=== PATIENT | female | born 1965 | race Caucasian/White ===

== ENCOUNTER 2017-12-23 13:06 | Emergency (ER) | payer MEDICARE, SELFPAY | END 2017-12-23 14:02 | disposition home or self-care (01) | PROVIDERS: Emergency Provider Internal Medicine; PCP Family Medicine; Visit Provider Internal Medicine | DX: J01.90 Acute sinusitis, unspecified (principal); B97.89 Other viral agents as the cause of diseases classified elsewhere | CPT/HCPCS: 99282 ==

== ENCOUNTER 2018-10-24 11:16 | Emergency (ER) | payer MEDICARE, SELFPAY ==
[2018-10-24 11:22] VITALS: BP 142/91; PULSE 69; RESP 15; TEMP 36.9; O2SAT 97; BMI 42.0
--- NOTE | 2018-10-24 12:41 | PC.NURSE ---
Pt is sitting on bed with daughter. Pt requested food, which was provided. Pt is also concerned her PCP will find out about this ER visit.
--- NOTE | 2018-10-24 12:54 | PC.NURSE ---
Pt requested to use the bathroom, and voided without incident.
[2018-10-24 13:18] LABS: Add Manual Diff / Slide Review NO; Basophils Absolute Auto 100 /uL (0-100); Basophils Percent Auto 1.2 % (0-2); Eosinophils Absolute Auto 200 /uL (0-450); Eosinophils Percent Auto 3.1 % (2-4); Hematocrit 37.7 % (36-46); Hemoglobin 12.6 g/dL (12.0-16.0); Lymphocytes Absolute Auto 1700 /uL (1100-4500); Lymphocytes Percent Auto 22.5 % (25-40); Mean Corpuscular HGB Conc 33.5 % (30-36); Mean Corpuscular Hemoglobin 28.8 PG (26-34); Mean Corpuscular Volume 86.1 fL (80-100); Monocytes Absolute Auto 400 /uL (0-900); Monocytes Percent Auto 4.9 % (3-14); Neutrophils Absolute Auto 5200 /uL (1500-7000); Neutrophils Percent Auto 68.3 % (50-75); Platelet Count 402 X10^3/uL (150-400); Red Blood Cell Count 4.38 X10^6/uL (4.0-5.2); Red Cell Distribution Width 13.7 % (11.6-14.8); White Blood Cell Count 7.6 X10^3/uL (4.5-11.0)
[2018-10-24 13:33] LABS: Alanine Aminotransferase 22 IU/L (9-52); Albumin 3.8 g/dL (3.5-5.0); Albumin Globulin Ratio 1.2 (1.0-2.8); Alkaline Phosphatase 71 U/L (38-126); Aspartate Aminotransferase 21 IU/L (14-36); BUN Creatinine Ratio 15.6 (6-22); Bilirubin Total 0.3 mg/dL (0.2-1.3); Blood Urea Nitrogen 14 mg/dL (7-17); Calcium 9.1 mg/dL (8.4-10.2); Carbon Dioxide 27 mmol/L (22-32); Chloride 105 mmol/L (98-107); Estimated Glomerular Filt Rate > 60.0 mL/min (>60); Ethanol (ETOH) < 10 mg/dL; Globulin 3.1 g/dL (1.7-4.1); Glucose 92 mg/dL (70-100); HEMOLYSIS < 15 (0-50); Potassium 3.6 mmol/L (3.4-5.1); Sodium 141 mmol/L (137-145); Total Protein 6.9 g/dL (6.3-8.2)
[2018-10-24 13:34] LABS: Bacteria Urine None Seen
--- NOTE | 2018-10-24 13:37 | ED.PSYCH ---
HPI - Psych General Chief Complaint: Psychiatric Symptoms Stated Complaint: 'kind of personal they told David' Time Seen by Provider: 10/24/18 12:10 Source: patient Mode of arrival: ambulatory Limitations: no limitations History of Present Illness HPI Narrative: patient is a 53-year-old female presents from her primary care provider for suicidal ideations. The patient is a chronic pain patient she has fibromyalgia PTSD bipolar. She has been having worsening pain in her hips and back. 3 days ago she wanted to cut her wrist but did not her and son stopped her. Last evening she also got some of her friends cocaine with attempt to hurt herself and end her life. She did not take very much of it. He was seen by her primary care doctor today for are her chronic pain concern for suicidal ideations sent to the ER for further evaluation. The patient would just like her pain controlled. Her pain seems to be out of control causing her these thoughts. she does not feel like there is anything being done except pain is. She previously has had injections in her back she has been seen by pain management which she says she and the physician did not get along so she stopped going. She has not taken any excess of her own pain medications. She has never attempted suicide in the past. No history of prior hospitalizations.. Related Data Home Medications Medication Instructions Recorded Confirmed Disabled Parking Permit 1 ea MISCELLANEOUS DIRECTED 10/24/18 10/24/18 duloxetine [Cymbalta] 30 mg PO DAILY 10/24/18 10/24/18 duloxetine [Cymbalta] 60 mg PO DAILY 10/24/18 10/24/18 gabapentin [Neurontin] 900 mg PO TID 10/24/18 10/24/18 lamotrigine [Lamictal] 200 mg PO BEDTIME 10/24/18 10/24/18 lidocaine [Lidoderm] 1 patch TOPICAL Q12H PRN 10/24/18 meloxicam 7.5 mg PO DAILY 10/24/18 10/24/18 prazosin 4 mg PO BEDTIME 10/24/18 10/24/18 promethazine 25 mg/mL injection 25 mg IM ONCE 10/24/18 10/24/18 solution Previous Rx's Medication Instructions Recorded omeprazole 20 mg PO BID #60 cap 10/28/17 cetirizine 10 mg PO QDAY #30 tab 11/27/17 fluticasone 1 spray INTRANASAL SEE 11/27/17 INSTRUCTIONS #16 gm clonazepam 1 mg tablet 1 mg PO TID #90 tab 09/30/18 oxycodone-acetaminophen 5 mg-325 1 tab PO TID PRN #90 tab 09/30/18 mg tablet carisoprodol 350 mg tablet 350 mg PO TIDP PRN #90 tab 10/16/18 cefpodoxime 200 mg tablet 200 mg PO BID #20 tab 10/24/18 oxycodone ER 10 mg tablet,crush 10 mg PO Q12H #60 tab 10/24/18 resistant,extended release 12 hr Allergies Allergy/AdvReac Type Severity Reaction Status Date / Time Penicillins Allergy Severe THROAT Verified 10/24/18 09:28 SWELLING pain contract Allergy Unknown Uncoded 10/24/18 09:28 Review of Systems Review of Systems ROS Unobtainable: All systems reviewed & are unremarkable except as noted in HPI and below ENT Ears, Nose, Mouth, and Throat: Denies change in voice, Denies vertigo, Denies dizziness, Denies neck pain and Denies sore throat Cardiovascular Denies syncope, Denies dyspnea and Denies dyspnea on exertion Respiratory Reports cough, Denies dyspnea, Denies dyspnea on exertion and Denies wheezing Gastrointestinal Gastrointestinal: Denies abdominal pain, Denies change in bowel habits, Denies diarrhea, Denies nausea and Denies vomiting Genitourinary Denies hematuria, Denies flank pain, Denies urinary incontinence and Denies urinary urgency Musculoskeletal Reports as per HPI, Reports back pain, Denies neck pain, Reports radiating pain into limb and Reports tingling Integumentary/Breasts Denies pruritus, Denies erythema, Denies rash and Denies wounds Neurologic Denies vertigo, Denies dizziness, Denies syncope and Reports tingling Psychiatric Reports as per HPI and Reports suicidal ideation Allergic/Immunologic Denies wheezing PFSH Surgical History History of colonoscopy (Resolved 07/2013) History of cystoscopy (Resolved 07/2013) History of endometrial ablation (Resolved 10/2012) History of esophagogastroduodenoscopy (EGD) (Resolved 03/2013) History of esophagogastroduodenoscopy (EGD) (Resolved 10/26/13) History of lumbar surgery (Resolved ) Social History Smoking Status: Current some day smoker Social History Smoking Status: Current some day smoker Exam Initial Vital Signs Initial Vital Signs: Vital Signs Temperature 98.4 F 10/24/18 11:22 Pulse Rate 69 10/24/18 11:22 Respiratory Rate 15 10/24/18 11:22 Blood Pressure 142/91 H 10/24/18 11:22 Pulse Oximetry 97 10/24/18 11:22 GENERAL: overweight female tearful alert oriented x4 HEENT: Head atraumatic,EOMI, neck is supple CARDIOVASCULAR: Regular rate and rhythm without murmurs, rubs or gallops. RESPIRATORY: Breath sounds equal bilaterally, no wheezes rales or rhonchi. ABDOMEN: Soft, nontender. Normoactive bowel sounds all 4 quadrants. No guarding or rebound. BACK: lumbar extremely sensitive to light touch scar noted no vertebral step-offs EXTREMITIES: Normal range of motion, no clubbing or edema. Neurovascularly intact. strength equal deep tendon reflexes intact NEUROLOGICAL: Alert and oriented x4.Normal gait and speech. Cranial nerves II through XII grossly intact. Strength equal in extremities SKIN: Warm, dry, no laceration, no petechiae, no rashes or lesions. Psych Appearance: grossly normal Mental Status: mental status grossly normal Speech and Movement: speech and movement normal Mood: congruent mood Affect: normal affect Attitude: cooperative Thought Process: normal Thought Content: normal Judgment: judgment good Course Orders Ordered: ED Orders 10/24/18 13:10 Complete Blood Count AUTO DIFF Stat Comprehensive Metabolic Panel Stat Ethanol (ETOH) Stat Thyroid Stimulating Hormone Stat 10/24/18 13:33 Urine Drug Screen, Rapid Stat Urine Microscopic Stat 10/24/18 13:50 CT lumbar spine wo con Stat XR chest 1V Stat Discontinued Medications Diazepam (Valium) 10 mg PO NOW ONE Stop: 10/24/18 14:02 Last Admin: 10/24/18 14:28 Dose: 10 mg Vital Signs - 8 hr 10/24/18 15:15 Temperature 97.9 F Pulse Rate 72 Respiratory Rate 18 Blood Pressure [Right Arm] 108/67 Pulse Oximetry 94 MDM - Psych Lab Data Attestation: I reviewed the patient's lab results. Result diagrams: 10/24/18 13:10 10/24/18 13:10 Lab Results 10/24/18 10/24/18 10/24/18 Range/Units 13:10 13:10 13:10 WBC 7.6 (4.5-11.0) X10^3/uL RBC 4.38 (4.0-5.2) X10^6/uL Hgb 12.6 (12.0-16.0) g/dL Hct 37.7 (36-46) % MCV 86.1 (80-100) fL MCH 28.8 (26-34) PG MCHC 33.5 (30-36) % RDW 13.7 (11.6-14.8) % Plt Count 402 H (150-400) X10^3/uL Neut % (Auto) 68.3 (50-75) % Lymph % (Auto) 22.5 L (25-40) % Crisp % (Auto) 4.9 (3-14) % Eos % (Auto) 3.1 (2-4) % Baso % (Auto) 1.2 (0-2) % Neut # (Auto) 5200 (8477-8335) /uL Lymph # (Auto) 1700 (1386-6367) /uL Crisp # (Auto) 400 (0-900) /uL Eos # (Auto) 200 (0-450) /uL Baso # (Auto) 100 (0-100) /uL Sodium 141 (137-145) mmol/L Potassium 3.6 (3.4-5.1) mmol/L Chloride 105 (98-107) mmol/L Carbon Dioxide 27 (22-32) mmol/L BUN 14 (7-17) mg/dL Creatinine 0.90 (0.52-1.04) mg/dL Estimated GFR > 60.0 (>60) mL/min BUN/Creatinine Ratio 15.6 (6-22) Glucose 92 (70-100) mg/dL Calcium 9.1 (8.4-10.2) mg/dL Total Bilirubin 0.3 (0.2-1.3) mg/dL AST 21 (14-36) IU/L ALT 22 (9-52) IU/L Alkaline Phosphatase 71 (38-126) U/L Total Protein 6.9 (6.3-8.2) g/dL Albumin 3.8 (3.5-5.0) g/dL Globulin 3.1 (1.7-4.1) g/dL Albumin/Globulin Ratio 1.2 (1.0-2.8) TSH 1.44 (0.47-4.68) uIU/mL Urine RBC (0-5/HPF) Urine WBC (0-5/HPF) Ur Squamous Epith Cells Urine Bacteria (None) Ur Culture Indicated? Urine Opiates Screen (Negative) Ur Oxycodone Screen (Negative) Urine Methadone Screen (Negative) Ur Barbiturates Screen (Negative) U Tricyclic Antidepress (Negative) Ur Phencyclidine Scrn (Negative) Ur Amphetamines Screen (Negative) U Methamphetamines Scrn (Negative) Ur MDMA Scrn (Ecstasy) (Negative) U Benzodiazepines Scrn (Negative) Urine Cocaine Screen (Negative) U Marijuana (THC) Screen (Negative) Ethyl Alcohol < 10 mg/dL 10/24/18 10/24/18 Range/Units 13:33 13:33 WBC (4.5-11.0) X10^3/uL RBC (4.0-5.2) X10^6/uL Hgb (12.0-16.0) g/dL Hct (36-46) % MCV (80-100) fL MCH (26-34) PG MCHC (30-36) % RDW (11.6-14.8) % Plt Count (150-400) X10^3/uL Neut % (Auto) (50-75) % Lymph % (Auto) (25-40) % Crisp % (Auto) (3-14) % Eos % (Auto) (2-4) % Baso % (Auto) (0-2) % Neut # (Auto) (5376-8682) /uL Lymph # (Auto) (7790-3055) /uL Crisp # (Auto) (0-900) /uL Eos # (Auto) (0-450) /uL Baso # (Auto) (0-100) /uL Sodium (137-145) mmol/L Potassium (3.4-5.1) mmol/L Chloride (98-107) mmol/L Carbon Dioxide (22-32) mmol/L BUN (7-17) mg/dL Creatinine (0.52-1.04) mg/dL Estimated GFR (>60) mL/min BUN/Creatinine Ratio (6-22) Glucose (70-100) mg/dL Calcium (8.4-10.2) mg/dL Total Bilirubin (0.2-1.3) mg/dL AST (14-36) IU/L ALT (9-52) IU/L Alkaline Phosphatase (38-126) U/L Total Protein (6.3-8.2) g/dL Albumin (3.5-5.0) g/dL Globulin (1.7-4.1) g/dL Albumin/Globulin Ratio (1.0-2.8) TSH (0.47-4.68) uIU/mL Urine RBC 5-10/hpf H (0-5/HPF) Urine WBC 5-10/hpf H (0-5/HPF) Ur Squamous Epith Cells 5-10 /hpf H Urine Bacteria None seen (None) Ur Culture Indicated? Cult not indicated Urine Opiates Screen Negative (Negative) Ur Oxycodone Screen Negative (Negative) Urine Methadone Screen Negative (Negative) Ur Barbiturates Screen Negative (Negative) U Tricyclic Antidepress Negative (Negative) Ur Phencyclidine Scrn Negative (Negative) Ur Amphetamines Screen Negative (Negative) U Methamphetamines Scrn Negative (Negative) Ur MDMA Scrn (Ecstasy) Negative (Negative) U Benzodiazepines Scrn Negative (Negative) Urine Cocaine Screen Positive H (Negative) U Marijuana (THC) Screen Positive H (Negative) Ethyl Alcohol mg/dL Urine Dip Bedside Urine Glucose Negative Bedside Urine Bilirubin + 1 Bedside Urine Ketone - Negative Urine Specific [place] 1.015 Bedside Urine Occult Blood +/- Bedside Urine pH 7.5 Bedside Urine Protein +/- 15 Bedside Urine Urobilinogen - Negative Bedside Urine Leukocytes +++ 500 Esterase Imaging Data lumbar CT: Radiologist's impression: PROCEDURE: CT LUMBAR SPINE WO CON INDICATIONS: worsening back pain TECHNIQUE: Noncontrast 3 mm thick sections acquired from the T12 level to the sacrum. Sagittal and coronal reformats were constructed. For radiation dose reduction, the following was used: automated exposure control. COMPARISON: [facility], CT, KIDNEY/ URETER/BLADDER, 06/19/2016, 21:58. [facility], MR, L-SPINE W&WO CONTRAST, 03/02/2013, 11:47. [facility], CR, L-SPINE 2-3 VIEWS, 08/10/2016, 1:42. [facility] [place], CR, SPINE LUMB 2 OR 3VW, 10/07/2014, 10:56. FINDINGS: Image quality: Excellent. Bones: There is normal bony alignment. No acute vertebral body compression fractures. No suspicious lytic or blastic bony lesions. Central spinal caliber is of normal overall caliber. No pars defects. T12-L1: Normal appearance. L1-L2: Normal appearance. L2-L3: Normal appearance. L3-L4: Normal appearance. L4-L5: Disc height is normal. Mild, diffuse disc bulge. Moderate to severe narrowing of the central canal. The right L4-L5 facet is diminutive in size which could be due to prior partial surgical resection versus congenital hypoplasia stable in appearance compared to prior exams. Moderate bilateral facet hypertrophy. Mild bilateral neural foraminal narrowing. L5-S1: Disc height is normal. Vacuum disc phenomenon. Mild, diffuse disc bulge. Mild bilateral facet hypertrophy. Mild narrowing of the central canal. Mild bilateral neural foraminal narrowing. Soft tissues: 2 cm low-density left adrenal adenoma. Small hiatal hernia. No retroperitoneal masses or hematomas. 1-2 mm nonobstructing stone in the inferior pole of the left kidney. Visualized aorta is normal in caliber. IMPRESSION: 1. No fracture. No acute osseous lesion. If symptoms and/or clinical suspicion for pathology persists, evaluation with MRI may be helpful for further assessment. 2. L4-L5 and L5-S1 degenerative disease 3. L4-L5 and L5-S1 facet arthropathy. 4. Moderate to severe L4-L5 central canal narrowing. Mild L5-S1 central canal narrowing. 5. Mild bilateral L4-L5 and L5-S1 neural foraminal narrowing. Dictated by: Kim Carpenter MD, PhD on 10/24/2018 at 14:52 Chest x-ray: Radiologist's impression: PROCEDURE: XR CHEST 1V INDICATIONS: Cough. TECHNIQUE: One view of the chest was acquired. COMPARISON: [facility], CHEST 2 VIEW, 01/18/2016, 9:22. [facility], CHEST 2VIEW PLUS LORDOTIC, 06/18/2012, 9:44. [facility], CHEST 2 VIEW, 11/13/2007, 21:01. FINDINGS: Surgical changes and devices: None. Lungs and pleura: There are increased bilateral predominantly perihilar reticular pulmonary opacities. There are hazy bibasilar and linear pulmonary opacities. No pleural effusions or pneumothorax. Lungs are hypoinflated. Mediastinum: Mediastinal contours appear normal. There is enlargement of the cardiac silhouette, with a component likely due to pulmonary hypoinflation. Bones and chest wall: No suspicious bony lesions. Overlying soft tissues appear unremarkable. IMPRESSION: 1. Enlargement of the cardiac silhouette, which can be seen with cardiomegaly or a pericardial effusion. 2. Increased bilateral perihilar reticular opacities suggestive of mild fluid overload/pulmonary edema. 3. Mild bibasilar pulmonary opacities most consistent with atelectasis, with pneumonia thought less likely. Dictated by: Yaw Quinn M.D. on 10/24/2018 at 14:45 MDM Narrative Medical decision making narrative: the patient is not actively suicidal. She has good insight she has a good support team at home. Seems that the root of her problem is acute on chronic pain. She is not currently going to chronic pain management she has not recently had any imaging done. Her CT of lumbar spine does show some canal narrowing. Perhaps an MRI as outpatient may help her. Also I suggested Dr. Pro for back injections. She had gone to him in the past she is hopeful of seeing him again she thinks that this will help. She has done physical therapy. Dr. subhash haas has been updated on patient's symptoms test results. She agrees with helping as outpatient with MRI and joint injections along with chronic pain management. At this time patient does not meet involuntary criteria for or suicidal ideations. She is not actively suicidal with no plan. She is agreeable to reach out for help if she should feel that she is becoming suicidal. Her is here with her and seems to be a good support for her. The patient is clinically sober, free from distracting injury, appears to have intact insight, judgment and reason. Does not meet criteria for involuntary hospitalization. Patient has the capacity to make decisions. Discharge Plan Departure Patient Disposition: Home Clinical Impression: Acute exacerbation of chronic low back pain Discharge Date/Time: 10/24/18 16:38 Interventions: ED Discharge Assessment Last Done: 10/24/18 16:38 Instructions: Low Back Pain, Acupuncture for Low Back Pain Activity Restrictions/Additional Instructions: *You have been diagnosed with acute on chronic pain *What to do: recommend outpatient MRI I have discussed this with . I have also discussed injections with Dr. Mcadams. She will also help to set this up If you are feeling suicidal or having suicidal thoughts: Call: Suicide Hotline: Visit: www.iamhurting.org Text: 092983 *Continue to take medications as directed Dr. Redd sent indications over to [facility] *Follow up with your primary care provider in 2-3 days *Return to ER if you should have increasing lower extremity weakness, suicidal thoughts or thoughts of self-harm or any new, worsening or concerning symptoms Prescriptions: No Action omeprazole 20 MG capsule,delayed release(DR/EC) 20 mg PO BID Qty: 60 RF: 1 fluticasone 16 GM spray,suspension 1 spray Intranasal SEE INSTRUCTIONS Qty: 16 RF: 6 cetirizine 10 MG tablet 10 mg PO QDAY Qty: 30 RF: 1 clonazepam 1 mg tablet 1 mg PO TID Qty: 90 RF: 0 oxycodone-acetaminophen [Percocet] 5-325 mg tablet 1 tab PO TID PRN (Reason: pain) Qty: 90 RF: 0 carisoprodol 350 mg tablet 350 mg PO TIDP PRN (Reason: pain MUST LAST 30 DAYS) Qty: 90 RF: 0 ketorolac 15 mg/mL solution 30 mg IM ONCE Qty: 2 RF: 0 ceftriaxone 1 gram recon soln 1 gram IM ONCE Qty: 1 RF: 0 diphenhydramine HCl 50 mg/mL solution 50 mg IM ONCE Qty: 1 RF: 0 cefpodoxime 200 mg tablet 200 mg PO BID Qty: 20 RF: 0 oxycodone [OxyContin] 10 mg tablet,oral only,ext.rel.12 hr 10 mg PO Q12H Qty: 60 RF: 0 promethazine 25 mg/mL solution 25 mg IM ONCE RF: 0 meloxicam 7.5 mg tablet 7.5 mg PO DAILY RF: 0 gabapentin [Neurontin] 600 mg tablet 900 mg PO TID RF: 0 lamotrigine [Lamictal] 100 mg tablet 200 mg PO BEDTIME RF: 0 duloxetine [Cymbalta] 30 mg capsule,delayed release(DR/EC) 30 mg PO DAILY RF: 0 duloxetine [Cymbalta] 60 mg capsule,delayed release(DR/EC) 60 mg PO DAILY RF: 0 prazosin 2 mg Capsule 4 mg PO BEDTIME RF: 0 Disabled Parking Permit 1 ea miscellaneous DIRECTED RF: 0 lidocaine [Lidoderm] 1 EACH adhesive patch,medicated 1 patch Topical Q12H PRN (Reason: pain) RF: 0 Referrals: Sheldon Mcadams DO [Physician] - Manuela Redd DO [Primary Care Provider] -
--- NOTE | 2018-10-24 13:42 | ED_ITS ---
HPI - Psych General Chief Complaint: Psychiatric Symptoms Stated Complaint: 'kind of personal they told David' Time Seen by Provider: 10/24/18 12:10 Source: patient Mode of arrival: ambulatory Limitations: no limitations History of Present Illness HPI Narrative: patient is a 53-year-old female presents from her primary care provider for suicidal ideations. The patient is a chronic pain patient she has fibromyalgia PTSD bipolar. She has been having worsening pain in her hips and back. 3 days ago she wanted to cut her wrist but did not her and son stopped her. Last evening she also got some of her friends cocaine with attempt to hurt herself and end her life. She did not take very much of it. He was seen by her primary care doctor today for are her chronic pain concern for suicidal ideations sent to the ER for further evaluation. The patient would just like her pain controlled. Her pain seems to be out of control causing her these thoughts. she does not feel like there is anything being done except pain is. She previously has had injections in her back she has been seen by brittny cruz which she says she and the physician did not get along so she stopped going. She has not taken any excess of her own pain medications. She has never attempted suicide in the past. No history of prior hospitalizations.. Related Data Home Medications Medication Instructions Recorded Confirmed Disabled Parking Permit 1 ea MISCELLANEOUS DIRECTED 10/24/18 10/24/18 duloxetine [Cymbalta] 30 mg PO DAILY 10/24/18 10/24/18 duloxetine [Cymbalta] 60 mg PO DAILY 10/24/18 10/24/18 gabapentin [Neurontin] 900 mg PO TID 10/24/18 10/24/18 lamotrigine [Lamictal] 200 mg PO BEDTIME 10/24/18 10/24/18 lidocaine [Lidoderm] 1 patch TOPICAL Q12H PRN 10/24/18 meloxicam 7.5 mg PO DAILY 10/24/18 10/24/18 prazosin 4 mg PO BEDTIME 10/24/18 10/24/18 promethazine 25 mg/mL injection 25 mg IM ONCE 10/24/18 10/24/18 solution Previous Rx's Medication Instructions Recorded omeprazole 20 mg PO BID #60 cap 10/28/17 cetirizine 10 mg PO QDAY #30 tab 11/27/17 fluticasone 1 spray INTRANASAL SEE 11/27/17 INSTRUCTIONS #16 gm clonazepam 1 mg tablet 1 mg PO TID #90 tab 09/30/18 oxycodone-acetaminophen 5 mg-325 1 tab PO TID PRN #90 tab 09/30/18 mg tablet carisoprodol 350 mg tablet 350 mg PO TIDP PRN #90 tab 10/16/18 cefpodoxime 200 mg tablet 200 mg PO BID #20 tab 10/24/18 oxycodone ER 10 mg tablet,crush 10 mg PO Q12H #60 tab 10/24/18 resistant,extended release 12 hr Allergies Allergy/AdvReac Type Severity Reaction Status Date / Time Penicillins Allergy Severe THROAT Verified 10/24/18 09:28 SWELLING pain contract Allergy Unknown Uncoded 10/24/18 09:28 Review of Systems Review of Systems ROS Unobtainable: All systems reviewed & are unremarkable except as noted in HPI and below ENT Ears, Nose, Mouth, and Throat: Denies change in voice, Denies vertigo, Denies dizziness, Denies neck pain and Denies sore throat Cardiovascular Denies syncope, Denies dyspnea and Denies dyspnea on exertion Respiratory Reports cough, Denies dyspnea, Denies dyspnea on exertion and Denies wheezing Gastrointestinal Gastrointestinal: Denies abdominal pain, Denies change in bowel habits, Denies diarrhea, Denies nausea and Denies vomiting Genitourinary Denies hematuria, Denies flank pain, Denies urinary incontinence and Denies urinary urgency Musculoskeletal Reports as per HPI, Reports back pain, Denies neck pain, Reports radiating pain into limb and Reports tingling Integumentary/Breasts Denies pruritus, Denies erythema, Denies rash and Denies wounds Neurologic Denies vertigo, Denies dizziness, Denies syncope and Reports tingling Psychiatric Reports as per HPI and Reports suicidal ideation Allergic/Immunologic Denies wheezing PFSH Surgical History History of colonoscopy (Resolved 07/2013) History of cystoscopy (Resolved 07/2013) History of endometrial ablation (Resolved 10/2012) History of esophagogastroduodenoscopy (EGD) (Resolved 03/2013) History of esophagogastroduodenoscopy (EGD) (Resolved 10/26/13) History of lumbar surgery (Resolved ) Social History Smoking Status: Current some day smoker Social History Smoking Status: Current some day smoker Exam Initial Vital Signs Initial Vital Signs: Vital Signs Temperature 98.4 F 10/24/18 11:22 Pulse Rate 69 10/24/18 11:22 Respiratory Rate 15 10/24/18 11:22 Blood Pressure 142/91 H 10/24/18 11:22 Pulse Oximetry 97 10/24/18 11:22 GENERAL: overweight female tearful alert oriented x4 HEENT: Head atraumatic,EOMI, neck is supple CARDIOVASCULAR: Regular rate and rhythm without murmurs, rubs or gallops. RESPIRATORY: Breath sounds equal bilaterally, no wheezes rales or rhonchi. ABDOMEN: Soft, nontender. Normoactive bowel sounds all 4 quadrants. No guarding or rebound. BACK: lumbar extremely sensitive to light touch scar noted no vertebral step- offs EXTREMITIES: Normal range of motion, no clubbing or edema. Neurovascularly intact. strength equal deep tendon reflexes intact NEUROLOGICAL: Alert and oriented x4.Normal gait and speech. Cranial nerves II through XII grossly intact. Strength equal in extremities SKIN: Warm, dry, no laceration, no petechiae, no rashes or lesions. Psych Appearance: grossly normal Mental Status: mental status grossly normal Speech and Movement: speech and movement normal Mood: congruent mood Affect: normal affect Attitude: cooperative Thought Process: normal Thought Content: normal Judgment: judgment good Course Orders Ordered: ED Orders 10/24/18 13:10 Complete Blood Count AUTO DIFF Stat Comprehensive Metabolic Panel Stat Ethanol (ETOH) Stat Thyroid Stimulating Hormone Stat 10/24/18 13:33 Urine Drug Screen, Rapid Stat Urine Microscopic Stat 10/24/18 13:50 CT lumbar spine wo con Stat XR chest 1V Stat Discontinued Medications Diazepam (Valium) 10 mg PO NOW ONE Stop: 10/24/18 14:02 Last Admin: 10/24/18 14:28 Dose: 10 mg Vital Signs - 8 hr 10/24/18 15:15 Temperature 97.9 F Pulse Rate 72 Respiratory Rate 18 Blood Pressure [Right Arm] 108/67 Pulse Oximetry 94 MDM - Psych Lab Data Attestation: I reviewed the patient's lab results. Result diagrams: 10/24/18 13:10 10/24/18 13:10 Lab Results 10/24/18 10/24/18 10/24/18 Range/Units 13:10 13:10 13:10 WBC 7.6 (4.5-11.0) X10^3/uL RBC 4.38 (4.0-5.2) X10^6/uL Hgb 12.6 (12.0-16.0) g/dL Hct 37.7 (36-46) % MCV 86.1 (80-100) fL MCH 28.8 (26-34) PG MCHC 33.5 (30-36) % RDW 13.7 (11.6-14.8) % Plt Count 402 H (150-400) X10^3/uL Neut % (Auto) 68.3 (50-75) % Lymph % (Auto) 22.5 L (25-40) % [place] % (Auto) 4.9 (3-14) % Eos % (Auto) 3.1 (2-4) % Baso % (Auto) 1.2 (0-2) % Neut # (Auto) 5200 (5700-8651) /uL Lymph # (Auto) 1700 (9637-4084) /uL [place] # (Auto) 400 (0-900) /uL Eos # (Auto) 200 (0-450) /uL Baso # (Auto) 100 (0-100) /uL Sodium 141 (137-145) mmol/L Potassium 3.6 (3.4-5.1) mmol/L Chloride 105 (98-107) mmol/L Carbon Dioxide 27 (22-32) mmol/L BUN 14 (7-17) mg/dL Creatinine 0.90 (0.52-1.04) mg/dL Estimated GFR > 60.0 (>60) mL/min BUN/Creatinine Ratio 15.6 (6-22) Glucose 92 (70-100) mg/dL Calcium 9.1 (8.4-10.2) mg/dL Total Bilirubin 0.3 (0.2-1.3) mg/dL AST 21 (14-36) IU/L ALT 22 (9-52) IU/L Alkaline Phosphatase 71 (38-126) U/L Total Protein 6.9 (6.3-8.2) g/dL Albumin 3.8 (3.5-5.0) g/dL Globulin 3.1 (1.7-4.1) g/dL Albumin/Globulin Ratio 1.2 (1.0-2.8) TSH 1.44 (0.47-4.68) uIU/mL Urine RBC (0-5/HPF) Urine WBC (0-5/HPF) Ur Squamous Epith Cells Urine Bacteria (None) Ur Culture Indicated? Urine Opiates Screen (Negative) Ur Oxycodone Screen (Negative) Urine Methadone Screen (Negative) Ur Barbiturates Screen (Negative) U Tricyclic Antidepress (Negative) Ur Phencyclidine Scrn (Negative) Ur Amphetamines Screen (Negative) U Methamphetamines Scrn (Negative) Ur MDMA Scrn (Ecstasy) (Negative) U Benzodiazepines Scrn (Negative) Urine Cocaine Screen (Negative) U Marijuana (THC) Screen (Negative) Ethyl Alcohol < 10 mg/dL 10/24/18 10/24/18 Range/Units 13:33 13:33 WBC (4.5-11.0) X10^3/uL RBC (4.0-5.2) X10^6/uL Hgb (12.0-16.0) g/dL Hct (36-46) % MCV (80-100) fL MCH (26-34) PG MCHC (30-36) % RDW (11.6-14.8) % Plt Count (150-400) X10^3/uL Neut % (Auto) (50-75) % Lymph % (Auto) (25-40) % [place] % (Auto) (3-14) % Eos % (Auto) (2-4) % Baso % (Auto) (0-2) % Neut # (Auto) (0856-6048) /uL Lymph # (Auto) (4963-9004) /uL [place] # (Auto) (0-900) /uL Eos # (Auto) (0-450) /uL Baso # (Auto) (0-100) /uL Sodium (137-145) mmol/L Potassium (3.4-5.1) mmol/L Chloride (98-107) mmol/L Carbon Dioxide (22-32) mmol/L BUN (7-17) mg/dL Creatinine (0.52-1.04) mg/dL Estimated GFR (>60) mL/min BUN/Creatinine Ratio (6-22) Glucose (70-100) mg/dL Calcium (8.4-10.2) mg/dL Total Bilirubin (0.2-1.3) mg/dL AST (14-36) IU/L ALT (9-52) IU/L Alkaline Phosphatase (38-126) U/L Total Protein (6.3-8.2) g/dL Albumin (3.5-5.0) g/dL Globulin (1.7-4.1) g/dL Albumin/Globulin Ratio (1.0-2.8) TSH (0.47-4.68) uIU/mL Urine RBC 5-10/hpf H (0-5/HPF) Urine WBC 5-10/hpf H (0-5/HPF) Ur Squamous Epith Cells 5-10 /hpf H Urine Bacteria None seen (None) Ur Culture Indicated? Cult not indicated Urine Opiates Screen Negative (Negative) Ur Oxycodone Screen Negative (Negative) Urine Methadone Screen Negative (Negative) Ur Barbiturates Screen Negative (Negative) U Tricyclic Antidepress Negative (Negative) Ur Phencyclidine Scrn Negative (Negative) Ur Amphetamines Screen Negative (Negative) U Methamphetamines Scrn Negative (Negative) Ur MDMA Scrn (Ecstasy) Negative (Negative) U Benzodiazepines Scrn Negative (Negative) Urine Cocaine Screen Positive H (Negative) U Marijuana (THC) Screen Positive H (Negative) Ethyl Alcohol mg/dL Urine Dip Bedside Urine Glucose Negative Bedside Urine Bilirubin + 1 Bedside Urine Ketone - Negative Urine Specific [place] 1.015 Bedside Urine Occult Blood +/- Bedside Urine pH 7.5 Bedside Urine Protein +/- 15 Bedside Urine Urobilinogen - Negative Bedside Urine Leukocytes +++ 500 Esterase Imaging Data lumbar CT: Radiologist's impression: PROCEDURE: CT LUMBAR SPINE WO CON INDICATIONS: worsening back pain TECHNIQUE: Noncontrast 3 mm thick sections acquired from the T12 level to the sacrum. Sagittal and coronal reformats were constructed. For radiation dose reduction, the following was used: automated exposure control. COMPARISON: [facility], CT, KIDNEY/ URETER/BLADDER, 06/19/2016, 21:58. [facility], MR, L-SPINE W&WO CONTRAST, 03/02/2013, 11:47. [facility], CR, L- SPINE 2-3 VIEWS, 08/10/2016, 1:42. [facility] [place], CR, SPINE LUMB 2 OR 3VW, 10/07/2014, 10:56. FINDINGS: Image quality: Excellent. Bones: There is normal bony alignment. No acute vertebral body compression fractures. No suspicious lytic or blastic bony lesions. Central spinal caliber is of normal overall caliber. No pars defects. T12-L1: Normal appearance. L1-L2: Normal appearance. L2-L3: Normal appearance. L3-L4: Normal appearance. L4-L5: Disc height is normal. Mild, diffuse disc bulge. Moderate to severe narrowing of the central canal. The right L4-L5 facet is diminutive in size which could be due to prior partial surgical resection versus congenital hypoplasia stable in appearance compared to prior exams. Moderate bilateral facet hypertrophy. Mild bilateral neural foraminal narrowing. L5-S1: Disc height is normal. Vacuum disc phenomenon. Mild, diffuse disc bulge. Mild bilateral facet hypertrophy. Mild narrowing of the central canal. Mild bilateral neural foraminal narrowing. Soft tissues: 2 cm low-density left adrenal adenoma. Small hiatal hernia. No retroperitoneal masses or hematomas. 1-2 mm nonobstructing stone in the inferior pole of the left kidney. Visualized aorta is normal in caliber. IMPRESSION: 1. No fracture. No acute osseous lesion. If symptoms and/or clinical suspicion for pathology persists, evaluation with MRI may be helpful for further assessment. 2. L4-L5 and L5-S1 degenerative disease 3. L4-L5 and L5-S1 facet arthropathy. 4. Moderate to severe L4-L5 central canal narrowing. Mild L5-S1 central canal narrowing. 5. Mild bilateral L4-L5 and L5-S1 neural foraminal narrowing. Dictated by: Kim Carpenter MD, PhD on 10/24/2018 at 14:52 Chest x-ray: Radiologist's impression: PROCEDURE: XR CHEST 1V INDICATIONS: Cough. TECHNIQUE: One view of the chest was acquired. COMPARISON: [facility], CHEST 2 VIEW, 01/18/2016, 9:22. [facility], CHEST 2VIEW PLUS LORDOTIC, 06/18/2012, 9:44. [facility], CHEST 2 VIEW, 11/13/2007, 21:01. FINDINGS: Surgical changes and devices: None. Lungs and pleura: There are increased bilateral predominantly perihilar reticular pulmonary opacities. There are hazy bibasilar and linear pulmonary opacities. No pleural effusions or pneumothorax. Lungs are hypoinflated. Mediastinum: Mediastinal contours appear normal. There is enlargement of the cardiac silhouette, with a component likely due to pulmonary hypoinflation. Bones and chest wall: No suspicious bony lesions. Overlying soft tissues appear unremarkable. IMPRESSION: 1. Enlargement of the cardiac silhouette, which can be seen with cardiomegaly or a pericardial effusion. 2. Increased bilateral perihilar reticular opacities suggestive of mild fluid overload/pulmonary edema. 3. Mild bibasilar pulmonary opacities most consistent with atelectasis, with pneumonia thought less likely. Dictated by: Yaw Quinn M.D. on 10/24/2018 at 14:45 MDM Narrative Medical decision making narrative: the patient is not actively suicidal. She has good insight she has a good support team at home. Seems that the root of her problem is acute on chronic pain. She is not currently going to chronic pain management she has not recently had any imaging done. Her CT of lumbar spine does show some canal narrowing. Perhaps an MRI as outpatient may help her. Also I suggested Dr. Pro for back injections. She had gone to him in the past she is hopeful of seeing him again she thinks that this will help. She has done physical therapy. Dr. subhash haas has been updated on patient's symptoms test results. She agrees with helping as outpatient with MRI and joint injections along with chronic pain management. At this time patient does not meet involuntary criteria for or suicidal ideations. She is not actively suicidal with no plan. She is agreeable to reach out for help if she should feel that she is becoming suicidal. Her is here with her and seems to be a good support for her. The patient is clinically sober, free from distracting injury, appears to have intact insight, judgment and reason. Does not meet criteria for involuntary hospitalization. Patient has the capacity to make decisions. Discharge Plan Departure Patient Disposition: Home Clinical Impression: Acute exacerbation of chronic low back pain Discharge Date/Time: 10/24/18 16:38 Interventions: ED Discharge Assessment Last Done: 10/24/18 16:38 Instructions: Low Back Pain, Acupuncture for Low Back Pain Activity Restrictions/Additional Instructions: *You have been diagnosed with acute on chronic pain *What to do: recommend outpatient MRI I have discussed this with . I have also discussed injections with Dr. Mcadams. She will also help to set this up If you are feeling suicidal or having suicidal thoughts: Call: Suicide Hotline: Visit: [facility] Text: 979784 *Continue to take medications as directed Dr. Redd sent indications over to [facility] pharmacy *Follow up with your primary care provider in 2-3 days *Return to ER if you should have increasing lower extremity weakness, suicidal thoughts or thoughts of self-harm or any new, worsening or concerning symptoms Prescriptions: No Action omeprazole 20 MG capsule,delayed release(DR/EC) 20 mg PO BID Qty: 60 RF: 1 fluticasone 16 GM spray,suspension 1 spray Intranasal SEE INSTRUCTIONS Qty: 16 RF: 6 cetirizine 10 MG tablet 10 mg PO QDAY Qty: 30 RF: 1 clonazepam 1 mg tablet 1 mg PO TID Qty: 90 RF: 0 oxycodone-acetaminophen [Percocet] 5-325 mg tablet 1 tab PO TID PRN (Reason: pain) Qty: 90 RF: 0 carisoprodol 350 mg tablet 350 mg PO TIDP PRN (Reason: pain MUST LAST 30 DAYS) Qty: 90 RF: 0 ketorolac 15 mg/mL solution 30 mg IM ONCE Qty: 2 RF: 0 ceftriaxone 1 gram recon soln 1 gram IM ONCE Qty: 1 RF: 0 diphenhydramine HCl 50 mg/mL solution 50 mg IM ONCE Qty: 1 RF: 0 cefpodoxime 200 mg tablet 200 mg PO BID Qty: 20 RF: 0 oxycodone [OxyContin] 10 mg tablet,oral only,ext.rel.12 hr 10 mg PO Q12H Qty: 60 RF: 0 promethazine 25 mg/mL solution 25 mg IM ONCE RF: 0 meloxicam 7.5 mg tablet 7.5 mg PO DAILY RF: 0 gabapentin [Neurontin] 600 mg tablet 900 mg PO TID RF: 0 lamotrigine [Lamictal] 100 mg tablet 200 mg PO BEDTIME RF: 0 duloxetine [Cymbalta] 30 mg capsule,delayed release(DR/EC) 30 mg PO DAILY RF: 0 duloxetine [Cymbalta] 60 mg capsule,delayed release(DR/EC) 60 mg PO DAILY RF: 0 prazosin 2 mg Capsule 4 mg PO BEDTIME RF: 0 Disabled Parking Permit 1 ea miscellaneous DIRECTED RF: 0 lidocaine [Lidoderm] 1 EACH adhesive patch,medicated 1 patch Topical Q12H PRN (Reason: pain) RF: 0 Referrals: Sheldon Mcadams DO [Physician] - Manuela Redd DO [Primary Care Provider] -
[2018-10-24 13:43] LABS: Urine Amphetamines Negative (Negative); Urine Barbiturates Negative (Negative); Urine Benzodiazepines Negative (Negative); Urine Cocaine Positive (Negative); Urine MDMA Negative (Negative); Urine Methadone Negative (Negative); Urine Methamphetamines Negative (Negative); Urine Morphine/Opi cutoff 2000 Negative (Negative); Urine Oxycodone Negative (Negative); Urine Phencyclidine Negative (Negative); Urine Tetrahydrocannabinol Positive (Negative); Urine Tricyclic Antidepressant Negative (Negative)
--- NOTE | 2018-10-24 13:50 | DI.CT.S_ITS ---
PROCEDURE: CT LUMBAR SPINE WO CON INDICATIONS: worsening back pain TECHNIQUE: Noncontrast 3 mm thick sections acquired from the T12 level to the sacrum. Sagittal and coronal reformats were constructed. For radiation dose reduction, the following was used: automated exposure control. COMPARISON: [facility], CT, KIDNEY/ URETER/BLADDER, 06/19/2016, 21:58. [facility], MR, L-SPINE W&WO CONTRAST, 03/02/2013, 11:47. [facility], CR, L-SPINE 2-3 VIEWS, 08/10/2016, 1:42. [facility] [place], CR, SPINE LUMB 2 OR 3VW, 10/07/2014, 10:56. FINDINGS: Image quality: Excellent. Bones: There is normal bony alignment. No acute vertebral body compression fractures. No suspicious lytic or blastic bony lesions. Central spinal caliber is of normal overall caliber. No pars defects. T12-L1: Normal appearance. L1-L2: Normal appearance. L2-L3: Normal appearance. L3-L4: Normal appearance. L4-L5: Disc height is normal. Mild, diffuse disc bulge. Moderate to severe narrowing of the central canal. The right L4-L5 facet is diminutive in size which could be due to prior partial surgical resection versus congenital hypoplasia stable in appearance compared to prior exams. Moderate bilateral facet hypertrophy. Mild bilateral neural foraminal narrowing. L5-S1: Disc height is normal. Vacuum disc phenomenon. Mild, diffuse disc bulge. Mild bilateral facet hypertrophy. Mild narrowing of the central canal. Mild bilateral neural foraminal narrowing. Soft tissues: 2 cm low-density left adrenal adenoma. Small hiatal hernia. No retroperitoneal masses or hematomas. 1-2 mm nonobstructing stone in the inferior pole of the left kidney. Visualized aorta is normal in caliber. IMPRESSION: 1. No fracture. No acute osseous lesion. If symptoms and/or clinical suspicion for pathology persists, evaluation with MRI may be helpful for further assessment. 2. L4-L5 and L5-S1 degenerative disease 3. L4-L5 and L5-S1 facet arthropathy. 4. Moderate to severe L4-L5 central canal narrowing. Mild L5-S1 central canal narrowing. 5. Mild bilateral L4-L5 and L5-S1 neural foraminal narrowing. Dictated by: Kim Carpenter MD, PhD on 10/24/2018 at 14:52 Approved by: Kim Carpenter MD, PhD on 10/24/2018 at 15:00
--- NOTE | 2018-10-24 13:50 | DI.RAD.S_ITS ---
PROCEDURE: XR CHEST 1V INDICATIONS: Cough. TECHNIQUE: One view of the chest was acquired. COMPARISON: [facility], CHEST 2 VIEW, 01/18/2016, 9:22. [facility], CHEST 2VIEW PLUS LORDOTIC, 06/18/2012, 9:44. [facility], CHEST 2 VIEW, 11/13/2007, 21:01. FINDINGS: Surgical changes and devices: None. Lungs and pleura: There are increased bilateral predominantly perihilar reticular pulmonary opacities. There are hazy bibasilar and linear pulmonary opacities. No pleural effusions or pneumothorax. Lungs are hypoinflated. Mediastinum: Mediastinal contours appear normal. There is enlargement of the cardiac silhouette, with a component likely due to pulmonary hypoinflation. Bones and chest wall: No suspicious bony lesions. Overlying soft tissues appear unremarkable. IMPRESSION: 1. Enlargement of the cardiac silhouette, which can be seen with cardiomegaly or a pericardial effusion. 2. Increased bilateral perihilar reticular opacities suggestive of mild fluid overload/pulmonary edema. 3. Mild bibasilar pulmonary opacities most consistent with atelectasis, with pneumonia thought less likely. Dictated by: Yaw Quinn M.D. on 10/24/2018 at 14:45 Approved by: Yaw Quinn M.D. on 10/24/2018 at 14:56
--- NOTE | 2018-10-24 14:02 | PC.NURSE ---
Pt is more calm after speaking with the doctor, and is relaxing in bed with at bedside. She requested a snack which was provided.
[2018-10-24 14:12] LABS: Culture Indicated Urine Cult Not Indicated; RBC Urine 5-10/HPF (0-5/HPF); Squamous Epithelial Cell Urine 5-10 /HPF; WBC Urine 5-10/HPF (0-5/HPF)
--- NOTE | 2018-10-24 14:13 | PC.NURSE ---
Pt taken via bed to get a CT scan.
[2018-10-24 14:17] LABS: Thyroid Stimulating Hormone 1.44 uIU/mL (0.47-4.68)
--- NOTE | 2018-10-24 14:27 | PC.NURSE ---
Pt back in room and relaxing with at bedside. Pt's family brought her food.
[2018-10-24] MEDS: diazePAM 5 MG TABLET 10 MG PO (14:28)
--- NOTE | 2018-10-24 14:44 | PC.NURSE ---
Pt went to bathroom and is back in bed resting with at bedside.
[2018-10-24 15:15] VITALS: BP 108/67; PULSE 72; RESP 18; TEMP 36.6; O2SAT 94
--- NOTE | 2018-10-24 15:29 | PC.NURSE ---
Per verbal request from Dr. Hernandez, pt no longer requiring 1:1 sitter at bedside.
--- NOTE | 2018-10-24 15:34 | PC.NURSE ---
Pt cleared by provider to release sitter. Sitter released at this time.
== END 2018-10-24 16:38 | disposition home or self-care (01) ==
PROVIDERS: Emergency Provider Emergency Medicine; Family Provider Family Medicine; PCP Family Medicine
DX: M54.5 Low back pain (principal); G89.29 Other chronic pain
CPT/HCPCS: 36415; 71045; 72131; 80053; 80305; 80320; 81003; 81015; 84443; 85025; 99283; 99284

== ENCOUNTER → 2018-12-19 12:29 | Outpatient (CLI) | payer MEDICARE, SELFPAY ==
[2018-12-19 13:13] LABS: Urine Amphetamines Negative (Negative); Urine Barbiturates Negative (Negative); Urine Benzodiazepines Negative (Negative); Urine Cocaine Negative (Negative); Urine MDMA Negative (Negative); Urine Methadone Negative (Negative); Urine Methamphetamines Negative (Negative); Urine Morphine/Opi cutoff 2000 Negative (Negative); Urine Oxycodone Positive (Negative); Urine Phencyclidine Negative (Negative); Urine Tetrahydrocannabinol Negative (Negative); Urine Tricyclic Antidepressant Negative (Negative)
== END ==
LOC: LAB 12:30
PROVIDERS: PCP Family Medicine; Visit Provider Family Medicine
DX: F11.90 Opioid use, unspecified, uncomplicated (principal)
CPT/HCPCS: 80305

== ENCOUNTER → 2019-03-06 14:56 | Outpatient (CLI) | payer MEDICARE, SELFPAY ==
--- NOTE | 2019-03-06 15:04 | DI.MRI.S_ITS ---
PROCEDURE: MR LUMBAR SPINE WO CON INDICATIONS: low back pain with radiculopathy TECHNIQUE: Noncontrast sagittal T1 spin echo and T2 fast echo, sagittal STIR, axial T1 and T2 fast spin echo through the lumbar spine. In cases with scoliosis, additional coronal T2 fast spin echo may be performed. COMPARISON: [facility], MR, L-SPINE WITHOUT CONTRAST, 08/03/2009, 17:08. MR, LUMBAR SPINE W/O CONTRAST, 08/15/2012, 15:39. [facility], MR, L-SPINE W&WO CONTRAST, 03/02/2013, 11:47. [facility], CR, L-SPINE 2-3 VIEWS, 08/10/2016, 1:42. [facility], CT, CT LUMBAR SPINE WO CON, 10/24/2018, 14:08. FINDINGS: Image quality: Excellent. Alignment and Curvature: There is normal bony alignment. Bone Marrow: Marrow is of normal overall signal. No acute vertebral body compression fractures. Spinal Cord: Conus medullaris terminates at the L1 level. Visualized cord demonstrates normal signal and size. Paraspinous Soft Tissues: No paravertebral masses. There is fatty infiltration in the right paraspinous muscle, likely secondary to denervation. L1-L2: Normal appearance. L2-L3: Normal appearance. L3-L4: Normal appearance. L4-L5: Preserved disc height. Mild disc desiccation. There is mild posterior disc bulge. Severe facet arthropathy bilaterally. Hypertrophy of ligamentum flavum. The central canal is moderately narrowed. Mild bilateral foraminal stenosis. No definitive nerve root impingement. There is increased central canal stenosis compared with last exam. L5-S1: Mild loss of disc height and disc desiccation. There is mild posterior disc bulge and posterior right paramedian disc protrusion. Moderate facet arthropathy bilaterally. Hypertrophy of ligamentum flavum. Epidural lipomatosis. The central canal is mildly narrowed. Mild bilateral foraminal stenosis. No definitive nerve root impingement. No significant change. IMPRESSION: 1. Multilevel degenerative disc disease and facet arthropathy as described, slightly progressed since the last exam. 2. Moderate central canal stenosis at L4-L5 and mild central canal stenosis at L5-S1. 3. Mild bilateral foraminal stenosis at L4 L5 and L5-S1. Dictated by: Theodora Franklin M.D. on 03/06/2019 at 18:10 Approved by: Theodora Franklin M.D. on 03/06/2019 at 18:19
== END ==
LOC: MRI 15:03
PROVIDERS: PCP Family Medicine; Visit Provider Registered Nurse
DX: M54.5 Low back pain (principal); M47.26 Other spondylosis with radiculopathy, lumbar region; M47.27 Other spondylosis with radiculopathy, lumbosacral region; M51.16 Intervertebral disc disorders with radiculopathy, lumbar region; M51.17 Intervertebral disc disorders with radiculopathy, lumbosacral region; M48.061 Spinal stenosis, lumbar region without neurogenic claudication; M48.07 Spinal stenosis, lumbosacral region
CPT/HCPCS: 72148

== ENCOUNTER → 2019-06-08 14:18 | Outpatient (ROUT) | payer MEDICARE, SELFPAY | PROVIDERS: PCP Family Medicine; Visit Provider Family Medicine | DX: M10.9 Gout, unspecified (principal) | CPT/HCPCS: 80337; 80346; 80365; 80369 ==

== ENCOUNTER → 2019-06-25 11:40 | Outpatient (CLI) | payer MEDICARE, SELFPAY | PROVIDERS: PCP Family Medicine; Visit Provider Family Medicine | DX: G56.22 Lesion of ulnar nerve, left upper limb (principal) | CPT/HCPCS: 95885; 95909 ==

== ENCOUNTER → 2019-06-25 13:33 | Outpatient (CLI) | payer MEDICARE, SELFPAY ==
--- NOTE | 2019-06-25 13:36 | DI.RAD.S_ITS ---
PROCEDURE: XR TOE RT MIN 2V INDICATIONS: joint pain TECHNIQUE: 2 views of the right toe(s) acquired. COMPARISON: None. FINDINGS: Bones: No fractures or dislocations. No suspicious bony lesions. No definite joint space narrowing Soft tissues: No suspicious soft tissue densities. IMPRESSION: Unremarkable examination. If the patient's pain or other symptoms persist, consider further evaluation with MRI Dictated by: Seb Gallo M.D. on 06/25/2019 at 16:16 Approved by: Seb Gallo M.D. on 06/25/2019 at 16:17
--- NOTE | 2019-06-25 13:36 | DI.RAD.S_ITS ---
PROCEDURE: XR HIP W PEL IF DONE LT MIN 4V INDICATIONS: anterior hip pain TECHNIQUE: AP pelvis with lateral view(s) of the right and left hip(s). COMPARISON: [facility], PELVIS W UNILATERAL HIP RIGHT, 08/08/2012, 13:17. [facility], HIP 2V LEFT, 07/20/2009, 13:54. FINDINGS: Bones: No fractures or dislocations. Pelvic ring appears intact. No suspicious bony lesions. Mild lower lumbar spondylosis. No definite hip joint space narrowing. Prominent right-sided exostosis involving the right greater trochanter, which may be enlarged since the prior study. Soft tissues: The visualized bowel gas pattern is normal. No suspicious soft tissue calcifications. IMPRESSION: Prominent right hip periarticular exostosis versus osteophyte, potentially a source of impingement in the appropriate clinical context. Cross-sectional imaging could be performed as clinically necessary. Dictated by: Seb Gallo M.D. on 06/25/2019 at 16:12 Approved by: Seb Gallo M.D. on 06/25/2019 at 16:16
== END ==
PROVIDERS: PCP Family Medicine; Visit Provider Family Medicine
DX: M25.551 Pain in right hip (principal); M25.552 Pain in left hip; M25.571 Pain in right ankle and joints of right foot; M10.9 Gout, unspecified; M19.90 Unspecified osteoarthritis, unspecified site; R20.2 Paresthesia of skin
CPT/HCPCS: 73522; 73660; 95885; 95886; 95909

== ENCOUNTER 2019-07-13 13:53 | Emergency (ER) | payer MEDICARE, SELFPAY ==
[2019-07-13 15:17] VITALS: BP 130/72; PULSE 64; RESP 18; TEMP 37; O2SAT 98; BMI 40.8
--- NOTE | 2019-07-13 15:21 | DI.RAD.S_ITS ---
PROCEDURE: XR FOOT RT MIN 3V INDICATIONS: concerns of glass in bottom of foot TECHNIQUE: 3 views of the foot were acquired. COMPARISON: [facility] [place], CR, XR FOOT 3 VIEWS WEIGHT BEARING LEFT, 06/13/2017, 13:23. [facility], CR, FOOT COMP MIN 3VW (RT), 12/01/2012, 12:21. [facility], CR, FOOT 3V RIGHT, 05/24/2016, 10:56. FINDINGS: Bones: No fractures or dislocations. No suspicious bony lesions. A plantar calcaneal spur is seen. Soft tissues: Mild apparent soft tissue gas is seen. No radiopaque foreign bodies are seen. IMPRESSION: Apparent soft tissue gas, without radiopaque foreign bodies seen by plain film. Dictated by: Roscoe Siddiqui M.D. on 07/13/2019 at 14:56 Approved by: Roscoe Siddiqui M.D. on 07/13/2019 at 14:58
--- NOTE | 2019-07-13 16:57 | ED_ITS ---
HPI - Extremity Injury (Lower) <Radha MixHARIS - Last Filed: 07/13/19 21:40> General Chief Complaint: Extremity Injury, Lower Stated Complaint: cut right foot/possible foreign body Time Seen by Provider: 07/13/19 16:18 Mode of arrival: Wheelchair History of Present Illness HPI Narrative: 53-year-old female presents emergency department today complaining of a puncture wound to her right foot yesterday morning. She states she stepped on a glass bong yesterday morning and pulled a moderate size piece of glass from the wound. She reports a dull aching 8/10 pain to her foot that is worse with pressure and movement. She is concerned that she still has a foreign body in her foot. Patient denies any swelling, redness, discharge, ankle pain, toe pain, nausea, vomiting, diarrhea, or other concerns. Related Data Previous Rx's Medication Instructions Recorded fluticasone propionate 1 spray INTRANASAL SEE 11/27/17 INSTRUCTIONS #16 gm Disabled Parking Permit #1 ea 02/11/19 omeprazole 20 mg capsule,delayed 20 mg PO BID #60 cap 02/13/19 release duloxetine 60 mg capsule,delayed 60 mg PO BID #60 cap 03/18/19 release gabapentin 600 mg tablet 1,200 mg PO TID #180 tab 03/18/19 lamotrigine 100 mg tablet 200 mg PO BEDTIME #30 tab 03/18/19 quetiapine 50 mg tablet See Rx Instructions PO ONCE HS #60 03/18/19 tab lidocaine 5 % topical patch 1 patch TOPICAL Q12H PRN #15 each 04/02/19 prazosin 2 mg capsule 6 mg PO BEDTIME #90 cap 04/02/19 naproxen 500 mg tablet 500 mg PO BID #28 tab 06/08/19 carisoprodol 350 mg tablet 350 mg PO TIDP PRN #90 tab 06/19/19 clonazepam 1 mg tablet 1 mg PO TID #90 tab 06/30/19 oxycodone-acetaminophen 5 mg-325 1 tab PO Q6H PRN #120 tab 07/02/19 mg tablet doxycycline hyclate 100 mg PO BID 7 Days #14 cap 07/13/19 Allergies Allergy/AdvReac Type Severity Reaction Status Date / Time Penicillins Allergy Severe THROAT Verified 07/13/19 15:20 SWELLING pain contract Allergy Unknown Uncoded 07/13/19 15:20 Review of Systems <HARIS Townsend - Last Filed: 07/13/19 21:40> Review of Systems Narrative: REVIEW OF SYSTEMS: GENERAL: Denies fever or chills. HENT: Denies head trauma. EYE: Denies double vision or vision loss. CARDIOVASCULAR: Denies syncope. MUSCULOSKELETAL: Denies weakness, or deformities. INTEGUMENTARY: Complains of right foot laceration, see HPI. NEURO: Denies numbness or tingling. Patient History <HARIS Townsend - Last Filed: 07/13/19 21:40> Medical History Abscess of skin (Inactive) Acute viral sinusitis (Inactive) Adenoma of left adrenal gland (Chronic 2011) ADHD (attention deficit hyperactivity disorder) (Chronic) Anxiety (Chronic) Asthma (Chronic) Bipolar disorder (Chronic) Cervical polyp (Resolved 08/2012) Cervical spine disease (Chronic) Chronic back pain (Chronic) Colon polyps (Resolved) CTS (carpal tunnel syndrome) (Chronic) Cyst of breast, diffuse fibrocystic (Chronic) Depression (Chronic) Fibromyalgia (Chronic) Foot pain (Chronic) Gastric ulcer (Chronic) Hearing loss (Chronic) Kidney infection (Inactive) Lumbar spine pain (Chronic) Peptic ulcer disease (Chronic) PTSD (post-traumatic stress disorder) (Chronic) Recurrent sinusitis (Chronic) Shingles (Inactive) Surgical History History of colonoscopy (Resolved 07/2013) History of cystoscopy (Resolved 07/2013) History of endometrial ablation (Resolved 10/2012) History of esophagogastroduodenoscopy (EGD) (Resolved 03/2013) History of esophagogastroduodenoscopy (EGD) (Resolved 10/26/13) History of lumbar surgery (Resolved ) Social History Smoking Status: Former smoker alcohol intake frequency: a few times a month Substance Use Type: does not use Exam <HARIS Townsend - Last Filed: 07/13/19 21:40> Narrative Exam Narrative: PHYSICAL EXAMINATION: GENERAL: Well groomed, alert, and cooperative. Answers questions promptly and appropriately. Vital signs noted. HENT: Normocephalic, atraumatic. RESPIRATORY: Normal respiratory rate, trachea midline, airway patent. No stridor, nasal flaring or accessory muscle use. MUSCULOSKELETAL: Full range of motion of toes and ankle of right foot. Tenderness to foot pad and arch, moderate amount of swelling noted Normal gait and coordination. Equal tone and mass bilaterally. EXTREMITIES: CMS intact. Moves all extremities. SKIN: Warm, dry, soft, appropriate color for ethnicity. 1 cm puncture wound to middle of right foot. Wound bed without foreign body. Bleeding controlled. No exudate. No surrounding erythema. A moderate amount of surrounding swelling and tenderness. NEURO: Alert and Oriented X 3. Good coordination. PSYCH: Appropriate affect and mood. Initial Vital Signs Initial Vital Signs: Vital Signs Temperature 98.6 F 07/13/19 15:17 Pulse Rate 64 07/13/19 15:17 Respiratory Rate 18 07/13/19 15:17 Blood Pressure 130/72 07/13/19 15:17 Pulse Oximetry 98 07/13/19 15:17 <Erin Novak DO - Last Filed: 07/18/19 18:29> Initial Vital Signs Initial Vital Signs: Vital Signs Temperature 98.6 F 07/13/19 15:17 Pulse Rate 64 07/13/19 15:17 Respiratory Rate 18 07/13/19 15:17 Blood Pressure 130/72 07/13/19 15:17 Pulse Oximetry 98 07/13/19 15:17 Course <HARIS Townsend - Last Filed: 07/13/19 21:40> Course Course Narrative: Dressing was placed over wound, patient was given an Renard wrap to help with swelling, she was given a Tdap immunization. Orders Ordered: Discontinued Medications Diphtheria/Tetanus/Acell Pertussis (Adacel) 0.5 ml IM .ONCE ONE Stop: 07/13/19 16:56 Last Admin: 07/13/19 17:23 Dose: 0.5 ml Documented by: [facility] Consultations Consultation #1: Patient staffed with Dr. Novak Vital Signs Vital signs: Vital Signs - 8 hr 07/13/19 15:17 Temperature 98.6 F Pulse Rate 64 Respiratory Rate 18 Blood Pressure 130/72 Pulse Oximetry 98 <Erin Novak DO - Last Filed: 07/18/19 18:29> Orders Ordered: Discontinued Medications Diphtheria/Tetanus/Acell Pertussis (Adacel) 0.5 ml IM .ONCE ONE Stop: 07/13/19 16:56 Last Admin: 07/13/19 17:23 Dose: 0.5 ml Documented by: YUE Vital Signs Vital signs: Vital Signs - 8 hr 07/13/19 15:17 Temperature 98.6 F Pulse Rate 64 Respiratory Rate 18 Blood Pressure 130/72 Pulse Oximetry 98 MDM - Extremity Injury (Lower) <HARIS Townsend - Last Filed: 07/13/19 21:40> Medical Records Attestation: I reviewed the patient's medical records. Lab Data Attestation: I reviewed the patient's lab results. Imaging Data Foot XR: Radiologist's impression: [address] [address] XRay Report Signed Patient: Lizeth Trevino [facility]#: [id number] : 1965Acct:[id number] Age/Sex: 53 / FDate of Service: 07/13/19 Loc: ED Accession Number: [id number] Procedure: XR foot RT min 3V Ordering Provider: Erin Novak D.O. PROCEDURE: XR FOOT RT MIN 3V INDICATIONS: concerns of glass in bottom of foot TECHNIQUE: 3 views of the foot were acquired. COMPARISON: [facility] [place], CR, XR FOOT 3 VIEWS WEIGHT BEARING LEFT, 06/13/2017, 13:23. [facility], CR, FOOT COMP MIN 3VW (RT), 12/01/2012, 12:21. [facility], CR, FOOT 3V RIGHT, 05/24/2016, 10:56. FINDINGS: Bones: No fractures or dislocations. No suspicious bony lesions. A plantar calcaneal spur is seen. Soft tissues: Mild apparent soft tissue gas is seen. No radiopaque foreign bodies are seen. IMPRESSION: Apparent soft tissue gas, without radiopaque foreign bodies seen by plain film. Dictated by: Roscoe Siddiqui M.D. on 07/13/2019 at 14:56 Approved by: Roscoe Siddiqui M.D. on 07/13/2019 at 14:58 [facility] Narrative Medical decision making narrative: This is a 53-year-old female with a puncture wound to her right foot. X-rays negative for foreign bodies. Patient was placed on antibiotics due to nature of wound and reports of removal of a large piece of glass to her foot indicating that the puncture wound may be fairly deep. There is significant tenderness around the area. No external signs of cellulitis such as exudate or erythema. Less likely fracture due to negative x- ray. Patient was given a compression bandage to decrease swelling. She was encouraged to follow up with her primary care provider in the next week for re- evaluation if her symptoms continue. ED return precautions given for new or worsening symptoms <Erin Novak, DO - Last Filed: 07/18/19 18:29> MDM Narrative Medical decision making narrative: case was staffed with myself. Discharge Plan Departure Patient Disposition: Home Clinical Impression: Puncture wound Discharge Date/Time: 07/13/19 17:46 Instructions: DI for Puncture Wound Activity Restrictions/Additional Instructions: Thank you for entrusting me with your care today. As discussed, your x-rays negative for any foreign bodies. I prescribed you antibiotics, please take this as directed. You may use the Renard wrap and ice as needed for pain. Follow up with your primary care provider in the next few weeks for re-evaluation if your symptoms continue. Return emergency department if you develop new or worsening symptoms. Prescriptions: New doxycycline hyclate 100 mg capsule 100 mg PO BID 7 Days Qty: 14 RF: 0 No Action duloxetine [Cymbalta] 60 mg capsule,delayed release(DR/EC) 60 mg PO BID Qty: 60 RF: 3 gabapentin [Neurontin] 600 mg tablet 1,200 mg PO TID Qty: 180 RF: 3 lamotrigine [Lamictal] 100 mg tablet 200 mg PO BEDTIME Qty: 30 RF: 3 quetiapine 50 mg tablet See Rx Instructions PO ONCE HS Qty: 60 RF: 3 fluticasone propionate 16 GM spray,suspension 1 spray Intranasal SEE INSTRUCTIONS Qty: 16 RF: 6 (DME) Disabled Parking Permit Qty: 1 RF: 0 omeprazole 20 mg capsule,delayed release(DR/EC) 20 mg PO BID Qty: 60 RF: 1 carisoprodol 350 mg tablet 350 mg PO TIDP PRN (Reason: pain MUST LAST 30 DAYS) Qty: 90 RF: 0 clonazepam 1 mg tablet 1 mg PO TID Qty: 90 RF: 0 oxycodone-acetaminophen [Percocet] 5-325 mg tablet 1 tab PO Q6H PRN (Reason: pain) Qty: 120 RF: 0 lidocaine [Lidoderm] 5 % adhesive patch,medicated 1 patch Topical Q12H PRN (Reason: pain) Qty: 15 RF: 0 prazosin 2 mg capsule 6 mg PO BEDTIME Qty: 90 RF: 3 naproxen 500 mg tablet 500 mg PO BID Qty: 28 RF: 0 Referrals: Manuela Redd DO [Primary Care Provider] -
[2019-07-13] MEDS: TET,DIPH,PERTUSS(ACELL),VAC/PF 0.5 ML SYRINGE IM (17:23)
== END 2019-07-13 17:46 | disposition home or self-care (01) ==
PROVIDERS: Emergency Provider Nurse Practitioner; PCP Family Medicine
DX: S91.331A Puncture wound without foreign body, right foot, initial encounter (principal); W25.XXXA Contact with sharp glass, initial encounter; Y93.01 Activity, walking, marching and hiking; Z23 Encounter for immunization
CPT/HCPCS: 73630; 90471; 96372; 99282; 99283; 90715

== ENCOUNTER → 2019-07-16 15:54 | Outpatient (CLI) | payer MEDICARE, SELFPAY ==
--- NOTE | 2019-07-16 15:56 | DI.MRI.S_ITS ---
PROCEDURE: MR HIP LT WO CON INDICATIONS: LEFT HIP PAIN TECHNIQUE: Noncontrast coronal T1 spin echo and STIR through the bony pelvis. Coronal and axial T2 fast spin echo with fat saturation, sagittal T1 spin echo, and oblique axial T2 fast spin echo with fat saturation through the hip. COMPARISON: [facility], CR, XR HIP W PEL IF DONE ANSELMO 3TO4V, 06/25/2019, 13:38. FINDINGS: Image quality: Excellent. Bones and joints: Bone marrow of the pelvic ring and proximal femurs show normal signal throughout. No intraosseous lesions or fractures. No avascular necrosis of the femoral heads. The visualized lower lumbar spine appears normally aligned. Tendons and ligaments: Thickening and intrasubstance signal changes involving the gluteus minimus and medius tendons with adjacent soft tissue edema in keeping with insertional tendinopathy. This appears present on the contralateral right side on large [id number] pulse sequences although slightly lesser extent. The nearby proximal iliotibial band also appears intact. The iliopsoas tendon appears intact, without adjacent bursal fluid collections or evidence for impingement syndrome. The origin of the hamstring tendon is intact at the ischial tuberosity, as well as the associated sacrotuberous ligament. The straight and reflected heads of the rectus femoris muscle origin appear intact, as well as the conjoint tendon. The ligamentum teres appears intact where visualized. Labrum and cartilage: The anterosuperior labrum appears slightly frayed which is age-appropriate. No discrete labral tear seen. Cartilage surface of the femoral head appears of normal thickness. The alpha angle of the femur is within normal limits at less than 55 degrees. Soft tissues: Visualized muscles demonstrate normal bulk and internal signal. Quadratus femoris muscle demonstrates no internal edema to suggest ischiofemoral impingement. The proximal sciatic neurovascular bundle appears normal adjacent to the hamstring tendons. No free pelvic fluid. Bladder wall thickness is normal. Genitourinary structures and bowel loops appear normal where visualized. IMPRESSION: Bilateral hip abductor insertional tendinopathy although left greater than right as above. Dictated by: Seb Gallo M.D. on 07/17/2019 at 8:22 Approved by: Seb Gallo M.D. on 07/17/2019 at 8:29
== END ==
LOC: MRI 15:56
PROVIDERS: PCP Family Medicine; Visit Provider Family Medicine
DX: M25.552 Pain in left hip (principal); M67.952 Unspecified disorder of synovium and tendon, left thigh; M67.951 Unspecified disorder of synovium and tendon, right thigh
CPT/HCPCS: 73721

== ENCOUNTER → 2019-11-02 16:19 | Outpatient (CLI) | payer MEDICARE, SELFPAY ==
[2019-11-02 17:06] LABS: Influenza A - CEPHEID Flu A NEGATIVE (NEGATIVE); Influenza B - CEPHEID Flu B NEGATIVE (NEGATIVE)
== END ==
PROVIDERS: PCP Family Medicine; Visit Provider Family Medicine
DX: J11.1 Influenza due to unidentified influenza virus with other respiratory manifestations (principal)
CPT/HCPCS: 87502

== ENCOUNTER 2020-02-09 11:15 | Outpatient (RCR) | payer MEDICARE, SELFPAY ==
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
--- NOTE | 2020-01-14 18:26 | PT.OPPOC ---
Physical, Occupational & Speech Therapy At [facility] Current Diagnoses Unspecified disorder of synovium and tendon, other site (01/14/20) Visit Care Team Role Provider Type Manuela Redd DO Attending Provider Physician Primary Care Provider Referring Provider Specialty: Family Practice Address: [address] [place] [address], [address], [facility] Email: [email or web address] Plan Of Care PT-OP-T Assessment and Plan Start: 09/18/19 16:05 Freq: Status: Active Protocol: Document 01/14/20 13:47 MB (Rec: 01/14/20 14:30 MB [id number]) Physical Therapy Assessment Rehab Potential Rehabilitation Potential Poor Evaluation Complexity Number of Personal Factors/Comorbidities 1-2 Number of Body Systems Impaired 1-2 Clinical Presentation at Evaluation Evolving Impairments Impairments Activity Tolerance,Pain, Posture,Strength Other Impairments Anxiety, hypersensitivity Goals 3 Research Engineer Marine Equipment Goal (LTG) Pt will perform progressive HEP with I including pelvic realignment, relaxation and gentle strengthening to help decrease pain and sympathetic overdrive by 03/15/2020. LTG Duration 8 weeks 2 Impairment Pain Prison Goal (LTG) Pt will report a 25% improvement in left hip pain to improve quality of life by 03/15/2020. LTG Duration 8 weeks 1 Impairment LE functional index score Prison Goal (LTG) Pt will present with an improved LE functional index score to reflect no more than 50% impairment to improve functional mobility by 2019. LTG Duration 8 weeks Assessment Summary Assessment Pt is a 54 y/o female presenting with hypersensitivity and poor tolerance to all PT tasks this date including ROM and MMT and she does not tolerate any special testing. Her functional strength with bed mobility, transfers and gait are normal. She reports constant pain in her hip and LB. She reports that she has had PT several times in the past and that it was not helpful. She did like the pool but knows that it is currently closed. Will initiate PT trial but given pt 's presentation, decreased pain relief and on many medications per her report ( she does not bring in medication list this date) and poor success with PT in the past, PT prognosis is guarded to poor. Physical Therapy Plan Frequency and Duration Frequency of Treatment 2x/Week Duration of Treatment 8 weeks Plan of Care Start Date 01/14/20 Plan of Care End Date 03/15/20 Therapeutic Interventions Therapeutic Interventions Aquatic Therapy,Balance Training,Home Exercise Program ,Manual Therapy,Neuromuscular Re-education,Patient/Caregiver Education,Self-Care/Home Management,Soft Tissue Mobilization,Taping, Therapeutic Activities, Therapeutic Exercises Modalities Cold Pack/Ice Massage,Electric Stimulation,Hot Packs, Ultrasound Other Therapeutic Interventions Laser Next Visit Focus/Plan Next Note Type Treatment Note Next Visit Plan Initiate therapeutic exercise Plan of Care Dates Plan of Care Start Date 01/14/20 Plan of Care End Date 03/15/20 Electronically Signed by: Alison Riddle, PT 01/14/20 9310 Please Sign and Return: I have reviewed this Plan of Care and certify that the skilled therapy services above are required to meet the patient?s needs. Physician Signature Date Printed Name and Credentials Clinical Instructor Signature Printed Name and Credentials
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
--- NOTE | 2020-01-26 10:27 | PT-OP ANOTE ---
Pt is a no show. PT leaves message for pt and asks her to check her appointment time for .
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
--- NOTE | 2020-02-02 12:40 | PT-OP ANOTE ---
Pt is a no show. PT will call pt. Consider d/c given pt has missed two appointments and was late to two appointments.
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
--- NOTE | 2020-02-11 13:05 | PT-OP ANOTE ---
Pt called at 1243 to state that she feel and injured her teeth and is getting dental appointment. She cancelled appointment at 1300 today.
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
== END 2020-02-23 12:15 ==
LOC: PHYS 11:15
PROVIDERS: PCP Family Medicine; Referring Provider Family Medicine; Visit Provider Family Medicine
DX: M67.98 Unspecified disorder of synovium and tendon, other site (principal)
CPT/HCPCS: 97110; 97161

== ENCOUNTER 2020-05-29 12:07 | Emergency (ER) | payer MEDICARE, SELFPAY ==
--- NOTE | 2020-05-29 12:20 | DI.RAD.S_ITS ---
PROCEDURE: XR FOOT LT MIN 3V INDICATIONS: heel pain TECHNIQUE: 3 views of the foot were acquired. COMPARISON: [facility], CR, FOOT COMP MIN 3VW (LT), 12/01/2012, 12:24. [facility], CR, XR FOOT RT MIN 3V, 07/13/2019, 15:32 FINDINGS: Bones: No fractures or dislocations. No suspicious bony lesions. A moderate plantar calcaneal spur is seen. Soft tissues: No tibiotalar joint effusion. Achilles tendon appears normal. IMPRESSION: There is a moderate plantar calcaneal spur. Dictated by: Roscoe Siddiqui M.D. on 05/29/2020 at 11:37 Approved by: Roscoe Siddiqui M.D. on 05/29/2020 at 11:38
[2020-05-29 12:21] VITALS: BP 141/92; PULSE 91; RESP 18; TEMP 36.7; O2SAT 97; BMI 43.9
--- NOTE | 2020-05-29 12:27 | PC.NURSE ---
patient came into the ED with complaints of pain in her left leg that goes up her leg. She states that it has been hurting for two weeks.
--- NOTE | 2020-05-29 12:57 | ED.EXTPRO ---
HPI - Extremity Problem <HARIS Dawson - Last Filed: 05/29/20 13:08> General Chief complaint: Extremity Problem,Nontraumatic Stated complaint: Left Foot Heel Pain Time Seen by Provider: 05/29/20 12:13 Source: patient Mode of arrival: Family Vehicle Limitations: no limitations History of Present Illness HPI Narrative: This is a 54 year female, occasional smoker, who presents to ED with significant other with chief complain of nontraumatic left heel pain that started 2 weeks ago when she woke up and stepping on affected foot. Patient reports can't walk on affected foot due to pain. Patient denies history of osteoporosis but has history of bone spur on left foot on 1st metatarsal which had surgery done by Dr. Catalan about 6-7 years ago. Patient reports intact sensation but significant tenderness to touch or putting pressure. Patient denies redness or warmth on affected site. She has been taking Motrin 600 mg about every 4 hours for pain. She has not taken Tylenol because it gives upset stomach. She is taking Percocet as needed for chronic back pain. Related Data Previous Rx's Medication Instructions Recorded fluticasone propionate 1 spray INTRANASAL SEE 11/27/17 INSTRUCTIONS #16 gm lidocaine 5 % topical patch 1 patch TOPICAL Q12H PRN #15 each 04/02/19 naproxen 500 mg tablet 500 mg PO BID #28 tab 06/08/19 duloxetine 60 mg capsule,delayed 60 mg PO BID #60 cap 01/11/20 release Disabled Parking Permit #1 ea 03/11/20 omeprazole 20 mg capsule,delayed 20 mg PO BID #60 cap 03/14/20 release carisoprodol 350 mg tablet 350 mg PO TIDP PRN #90 tab 03/24/20 quetiapine 50 mg tablet See Rx Instructions PO ONCE HS #90 04/15/20 tab clonazepam 1 mg tablet 1 mg PO TID #90 tab 05/26/20 duloxetine 30 mg capsule,delayed See Rx Instructions .ROUTE 05/26/20 release .COMPLEX #30 cap gabapentin 600 mg tablet See Rx Instructions .ROUTE 05/26/20 .COMPLEX #180 tab lamotrigine 100 mg tablet 200 mg PO BEDTIME #60 tab 05/26/20 oxycodone-acetaminophen 5 mg-325 1 tab PO Q6H PRN #120 tab 05/26/20 mg tablet prazosin 2 mg capsule See Rx Instructions .ROUTE 05/26/20 .COMPLEX #90 cap Allergies Allergy/AdvReac Type Severity Reaction Status Date / Time Penicillins Allergy Severe THROAT Verified 03/21/20 11:52 SWELLING pain contract Allergy Unknown Uncoded 03/21/20 11:52 Review of Systems <HARIS Dawson - Last Filed: 05/29/20 13:08> Review of Systems Narrative: General: Denies fever, chills, fatigue, malaise, sweats. Respiratory: Denies dyspnea, cough, wheezing, hemoptysis, sputum. Cardiovascular: Denies chest pain, palpitations, orthopnea, edema. Gastrointestinal: Denies nausea, vomiting, abdominal pain, diarrhea, constipation, melena. Musculoskeletal: See HPI Skin: Denies rash, skin lesions, or other. Neurologic: Denies weakness, headache, numbness, change in speech, confusion, seizures, incoordination. Psychiatric: No concerning psychosocial issues. 12-point review of systems is negative except for those stated above. Patient History <HARIS Dawson - Last Filed: 05/29/20 13:08> Medical History Abscess of skin (Inactive) Acute viral sinusitis (Inactive) Adenoma of left adrenal gland (Chronic 2011) ADHD (attention deficit hyperactivity disorder) (Chronic) Anxiety (Chronic) Asthma (Chronic) Bipolar disorder (Chronic) Cervical polyp (Resolved 08/2012) Cervical spine disease (Chronic) Chronic back pain (Chronic) Colon polyps (Resolved) CTS (carpal tunnel syndrome) (Chronic) Cyst of breast, diffuse fibrocystic (Chronic) Depression (Chronic) Fibromyalgia (Chronic) Foot pain (Chronic) Gastric ulcer (Chronic) Hearing loss (Chronic) Kidney infection (Inactive) Lumbar spine pain (Chronic) Pain management contract agreement (Acute) Peptic ulcer disease (Chronic) PTSD (post-traumatic stress disorder) (Chronic) Recurrent sinusitis (Chronic) Shingles (Inactive) Strain of gluteus medius of left lower extremity (Acute) Surgical History History of colonoscopy (Resolved 07/2013) History of cystoscopy (Resolved 07/2013) History of endometrial ablation (Resolved 10/2012) History of esophagogastroduodenoscopy (EGD) (Resolved 03/2013) History of esophagogastroduodenoscopy (EGD) (Resolved 10/26/13) History of lumbar surgery (Resolved ) Social History Smoking Status: Current every day smoker Smoking Status: Current every day smoker tobacco type: cigarettes alcohol intake frequency: 0-2 drinks per day Substance Use Type: does not use Exam <HARIS Dawson - Last Filed: 05/29/20 13:08> Narrative Exam Narrative: General appearance: well developed, well nourished, in no acute distress. Head: normocephalic, atraumatic, no scalp lesions, non-tender. ENT: Hearing grossly intact. Airway patent. Neck/Thyroid: neck supple, full range of motion, no visible masses or meningeal signs. No JVD, non-tender without lymphadenopathy. Skin: no suspicious rashes, lesions over visible areas. Warm and dry and appropriate color for ethnicity. Heart: no clubbing, no cyanosis, no edema. Lungs: Breathing even and unlabored. No stridor. No accessory muscles used. Able to speak in full sentences. Chest: normal shape and expansion. Abdomen: non-obese, non-distended. Neurologic: alert and oriented. Cognitive exam, [employer] and PNS grossly intact on informal exam. Psych: good eye contact, normal affect. Initial Vital Signs Initial Vital Signs: Vital Signs Temperature 98.1 F 05/29/20 12:21 Pulse Rate 91 H 05/29/20 12:21 Respiratory Rate 18 05/29/20 12:21 Blood Pressure 141/92 H 05/29/20 12:21 Pulse Oximetry 97 05/29/20 12:21 Extrem Left lower extremity: lower leg Details: no tenderness and no localized swelling, ankle Details: no tenderness and no swelling and foot Details: normal capillary refill, normal to inspection, tenderness Location: of the plantar foot (heel), toes with normal ROM, no edema, vascular exam Details: dorsalis pedis pulse present, posterior tibial pulse present and normal capillary refill, motor-sensory exam Details: light-touch normal and other (No erythema); no unusual warmth, no lacerations, no ecchymosis and no puncture wound <Stephany Hernandez DO - Last Filed: 05/30/20 07:38> Initial Vital Signs Initial Vital Signs: Vital Signs Temperature 98.1 F 05/29/20 12:21 Pulse Rate 91 H 05/29/20 12:21 Respiratory Rate 18 05/29/20 12:21 Blood Pressure 141/92 H 05/29/20 12:21 Pulse Oximetry 97 05/29/20 12:21 Procedures <HARIS Dawson - Last Filed: 05/29/20 13:08> Orthopedic Splinting/Casting Injury #1: Side: left Lower Extremity Injury Location: foot Other Orthopedic Equipment: walker Post splinting neuro exam: intact Post splinting vascular exam: intact Placed by: Nursing Scores <HARIS Dawson - Last Filed: 05/29/20 13:08> GCS Doni coma scale eye opening: Spontaneous [place] coma scale verbal response: Orientated Doni coma scale motor response: Obey commands [place] coma scale total score: 15 Course <HARIS Dawson - Last Filed: 05/29/20 13:08> Orders Ordered: Discontinued Medications Ibuprofen (Advil) 400 mg PO NOW ONE Stop: 05/29/20 12:53 Last Admin: 05/29/20 12:58 Dose: 400 mg Documented by: JAXON Vital Signs Vital signs: Vital Signs - 8 hr 05/29/20 12:21 Temperature 98.1 F Pulse Rate 91 H Respiratory Rate 18 Blood Pressure 141/92 H Pulse Oximetry 97 <Stephany Hernandez DO - Last Filed: 05/30/20 07:38> Orders Ordered: Discontinued Medications Ibuprofen (Advil) 400 mg PO NOW ONE Stop: 05/29/20 12:53 Last Admin: 05/29/20 12:58 Dose: 400 mg Documented by: JAXON Vital Signs Vital signs: Vital Signs - 8 hr 05/29/20 12:21 Temperature 98.1 F Pulse Rate 91 H Respiratory Rate 18 Blood Pressure 141/92 H Pulse Oximetry 97 MDM - Extremity (Nontraumatic) <HARIS Dawson - Last Filed: 05/29/20 13:08> Differential Diagnosis Differential diagnosis: Likely other (Heel fracture, bone spur, plantar fasciitis) Medical Records Attestation: I reviewed the patient's medical records. Imaging Data XR-Foot LT: Radiologist's Impression: [address] [address] XRay Report Signed Patient: Lizeth Trevino [facility]#: [id number] : 1965Acct:[id number] Age/Sex: 54 / FDate of Service: 05/29/20 Loc: ED Accession Number: [id number] Procedure: XR foot LT min 3V Ordering Provider: Jeevan Alfaro PROCEDURE: XR FOOT LT MIN 3V INDICATIONS: heel pain TECHNIQUE: 3 views of the foot were acquired. COMPARISON: [facility], CR, FOOT COMP MIN 3VW (LT), 12/01/2012, 12:24. [facility], CR, XR FOOT RT MIN 3V, 07/13/2019, 15:32 FINDINGS: Bones: No fractures or dislocations. No suspicious bony lesions. A moderate plantar calcaneal spur is seen. Soft tissues: No tibiotalar joint effusion. Achilles tendon appears normal. IMPRESSION: There is a moderate plantar calcaneal spur. Dictated by: Roscoe Siddiqui M.D. on 05/29/2020 at 11:37 Approved by: Roscoe Siddiqui M.D. on 05/29/2020 at 11:38 MDM Narrative Medical decision making narrative: This is a 54-year-old female presents to ED with nontraumatic left heel pain for last 2 weeks which worsens with bearing weight and light touch. X-ray test was negative for fracture but there is a moderate plantar calcaneal spur. Intact sensation, pulses distally. There is no puncture wound, erythema, swelling, warmth on affected site. Patient provided with a walker for ambulatory aid and continue with [id number] Motrin with food to decrease GI irritation and her own Percocet as needed for severe pain and to follow-up with Dr. Catalan for evaluation and treatment. Return precautions were discussed with patient and patient verbalized understanding in agreement with the treatment plan. Discharge Plan Departure Patient Disposition: Home Clinical Impression: Bone spur of foot Heel pain Qualifiers: Laterality: left Qualified Code(s): M79.672 - Pain in left foot Discharge Date/Time: 05/29/20 13:22 Instructions: DI for Foot Pain Activity Restrictions/Additional Instructions: You have been diagnosed with [left heel pain likely from bone spur. X-ray test does not show fractures but moderate plantar calcaneal spur]. What to do: *Take your medications as directed. You can continue with Motrin 4-600 mg up to 3 to 4 times a day as needed for pain with food. You can use your oxycodone needed for severe pain. If you can not bear weight, is a walker did dispense to you for an aid. *Follow up with your primary care provider/Dr. Catalan in 2-3 days, call for an appointment. Let them know you were seen in the ED and that we asked you to be seen in follow up. *Return to ED if you have any new, worsening, or concerning symptoms, such as [worsening pain, fever, chills, nausea or vomiting, chest pain, breathing difficulty or any acute concerns]. Prescriptions: No Action duloxetine [Cymbalta] 60 mg capsule,delayed release(DR/EC) 60 mg PO BID Qty: 60 RF: 3 fluticasone propionate 16 GM spray,suspension 1 spray Intranasal SEE INSTRUCTIONS Qty: 16 RF: 6 (DME) Disabled Parking Permit Qty: 1 RF: 0 omeprazole 20 mg capsule,delayed release(DR/EC) 20 mg PO BID Qty: 60 RF: 1 carisoprodol 350 mg tablet 350 mg PO TIDP PRN (Reason: pain MUST LAST 30 DAYS) Qty: 90 RF: 3 quetiapine 50 mg tablet See Rx Instructions PO ONCE HS Qty: 90 RF: 3 oxycodone-acetaminophen [Percocet] 5-325 mg tablet 1 tab PO Q6H PRN (Reason: pain) Qty: 120 RF: 0 lamotrigine [Lamictal] 100 mg tablet 200 mg PO BEDTIME Qty: 60 RF: 3 duloxetine 30 mg capsule,delayed release(DR/EC) See Rx Instructions .ROUTE .COMPLEX Qty: 30 RF: 2 gabapentin 600 mg tablet See Rx Instructions .ROUTE .COMPLEX Qty: 180 RF: 3 prazosin 2 mg capsule See Rx Instructions .ROUTE .COMPLEX Qty: 90 RF: 2 clonazepam 1 mg tablet 1 mg PO TID Qty: 90 RF: 0 lidocaine [Lidoderm] 5 % adhesive patch,medicated 1 patch Topical Q12H PRN (Reason: pain) Qty: 15 RF: 0 naproxen 500 mg tablet 500 mg PO BID Qty: 28 RF: 0 Referrals: Rebecca Catalan DPM [Physician] - Manuela Redd DO [Primary Care Provider] - <Stephany Hernandez DO - Last Filed: 05/30/20 07:38> Cosign ED Attending Kevan Attestation: I was immediately available in the department for consultation. Documentation has been reviewed. I agree with assessment and plan.
[2020-05-29] MEDS: IBUPROFEN 400 MG TABLET PO (12:58)
--- NOTE | 2020-05-29 13:14 | PC.NURSE ---
patient was given a walker from supply. She left in the wheel chair. She said she was too tired to walk stating i'm too fat, it's going to take time to learn how to use the walker
[2020-05-29 13:15] VITALS: BP 134/70; PULSE 82; RESP 14; O2SAT 96
== END 2020-05-29 13:22 | disposition home or self-care (01) ==
PROVIDERS: Emergency Provider Nurse Practitioner Family; PCP Family Medicine
DX: M77.32 Calcaneal spur, left foot (principal); M79.672 Pain in left foot
CPT/HCPCS: 73630; 99283

== ENCOUNTER 2021-03-21 23:51 | Emergency (ER) | payer MEDICARE, SELFPAY ==
[2021-03-22 00:03] VITALS: BP 165/80; PULSE 84; RESP 18; TEMP 36.1; O2SAT 99
--- NOTE | 2021-03-22 00:12 | DI.RAD.S_ITS ---
PROCEDURE: XR KNEE RT 3V INDICATIONS: hit knee TECHNIQUE: 3 views of the knee were acquired. COMPARISON: [facility], , KNEE 3V RIGHT, 08/08/2012, 13:17. FINDINGS: Bones: No fractures or dislocations. No suspicious bony lesions. Soft tissues: No joint effusion. No suspicious soft tissue calcifications. IMPRESSION: No fracture. No osseous lesion. If symptoms and/or clinical suspicion for pathology persists, further assessment with repeat radiographs (7-10 days) or advanced imaging (e.g. CT, MRI or bone scan) should be considered. Dictated by: Kim Carpenter MD, PhD on 03/22/2021 at 8:32 Approved by: Kim Carpenter MD, PhD on 03/22/2021 at 8:32
--- NOTE | 2021-03-22 03:50 | ED_ITS ---
HPI - Extremity Injury (Lower) General Chief Complaint: Extremity Injury, Lower Stated Complaint: Fall, right knee/head/right arm/hand Time Seen by Provider: 03/22/21 00:11 Source: patient Mode of arrival: Wheelchair Limitations: no limitations History of Present Illness HPI Narrative: This is a 55-year-old who comes with complaint of ground level mechanical fall. Patient was at home, she fell forward into her eye dog cage striking the patellar region of her knee with her weight. She also hit both of her arms and developed bruising. She states she also fell sideways into the door and hit her head. Patient states that she has had headache. No vision changes. She felt dizzy overnight and had some nausea and vomiting which has not continue to night. Patient has had some generalized discomfort throughout her body. Most specifically in her right knee. She has some contusions on both upper extremities that she is appreciated. Patient has pain with weight-bearing she states she can put some weight on her lower extremity but is painful. She states it does feel little unstable. She denies any new sensation changes. Patient denies any new GI or respiratory symptoms currently. She does not take any anticoagulants, she does not take an aspirin daily. She does take clonazepam, lamotrigine and quetiapine daily prescribed by Dr. gimenez as well as gabapentin. She states she had a pain contract with Dr. Redd 4 years ago but does not currently. She states she does take Percocet intermittently which she is prescribed. Patient has been taking ibuprofen at home her last dose was at 4:00 p.m. on 03/21. She is accompanied by her significant other. She does smoke, occasional alcohol denies any illicit. Related Data Previous Rx's Medication Instructions Recorded fluticasone propionate 50 1 spray INTRANASAL SEE 11/27/17 mcg/actuation nasal INSTRUCTIONS #16 gm spray,suspension lidocaine 5 % topical patch 1 patch TOPICAL Q12H PRN #15 each 04/02/19 (Lidoderm) naproxen 500 mg tablet 500 mg PO BID #28 tab 06/08/19 duloxetine 60 mg capsule,delayed 60 mg PO BID #60 cap 01/11/20 release (Cymbalta) Disabled Parking Permit #1 ea 03/11/20 duloxetine 30 mg capsule,delayed See Rx Instructions .ROUTE 05/26/20 release .COMPLEX #30 cap prazosin 2 mg capsule See Rx Instructions .ROUTE 11/28/20 .COMPLEX #120 cap lamotrigine 100 mg tablet 200 mg PO BEDTIME #60 tab 03/02/21 (Lamictal) oxycodone-acetaminophen 5 mg-325 1 tab PO Q6H PRN #120 tab 03/02/21 mg tablet (Percocet) clonazepam 1 mg tablet 1 mg PO TID #90 tab 03/08/21 carisoprodol 350 mg tablet See Rx Instructions .ROUTE 03/10/21 .COMPLEX #90 tab gabapentin 600 mg tablet See Rx Instructions .ROUTE 03/14/21 .COMPLEX #180 tab meloxicam 7.5 mg tablet (Mobic) 7.5 mg PO DAILY PRN #14 tab 03/22/21 quetiapine 50 mg tablet See Rx Instructions PO ONCE HS 03/22/21 #150 tab omeprazole 20 mg capsule,delayed See Rx Instructions .ROUTE 03/31/21 release .COMPLEX #60 cap Allergies Allergy/AdvReac Type Severity Reaction Status Date / Time Penicillins Allergy Severe THROAT Verified 11/28/20 16:01 SWELLING pain contract Allergy Unknown Uncoded 11/28/20 16:01 Review of Systems Review of Systems ROS Unobtainable: All systems reviewed & are unremarkable except as noted in HPI and below Patient History Medical History Abscess of skin Acute viral sinusitis Adenoma of left adrenal gland (2011) ADHD (attention deficit hyperactivity disorder) Anxiety Asthma Bipolar disorder Cervical polyp (08/2012) Cervical spine disease Chronic back pain Colon polyps CTS (carpal tunnel syndrome) Cyst of breast, diffuse fibrocystic Depression Fibromyalgia Foot pain Gastric ulcer Hearing loss Kidney infection Lumbar spine pain Pain management contract agreement Peptic ulcer disease PTSD (post-traumatic stress disorder) Recurrent sinusitis Shingles Strain of gluteus medius of left lower extremity Surgical History History of colonoscopy (07/2013) History of cystoscopy (07/2013) History of endometrial ablation (10/2012) History of esophagogastroduodenoscopy (EGD) (03/2013) History of esophagogastroduodenoscopy (EGD) (10/26/13) History of lumbar surgery (~1989) Social History Smoking Status: Current every day smoker Smoking Status: Current every day smoker tobacco type: cigarettes alcohol intake frequency: 0-2 drinks per day Substance Use Type: does not use Exam Narrative Exam Narrative: GEN: well nourished, well appearing female, alert and oriented x 3, patient appears to be in mild distress. HEENT: Atraumatic, pupils are equal round reactive to light, extraocular movements are intact, nares are clear, TMs are clear with no fluid, there is no conjunctival pallor. Throat is clear without any exudates, erythema, tonsillar enlargement or uvular deviation, no facial droop. No cervical vertebral tenderness. HEART: Regular rate and rhythm without murmur, clicks, rubs. Pulses are equal in upper extremities LUNGS:Lungs clear to auscultation, no wheezes, rales, crackles, chest moves symmetrically ABD:bowel sounds normal, soft, non-tender, no guarding, rebound, rigidity, no masses noted, no hepatosplenomegaly :No CVA tenderness BACK: Patient has generalized tenderness of mid and lower back, no ecchymoses or skin changes.. Patient has normal range of motion. Patient's gait is antalgic. Sensation intact bilateral lower extremities and upper extremities. MSCL: Right patellar contusion. Patient is tender over the patella. Patient is also tender over the proximal tibia medial and laterally. Negative for joint laxity testing. Patient is uncomfortable throughout the entire testing. Patient does not have any bony tenderness appreciated of the lower leg, ankle or foot. Nor of the thigh or hip, no muscle atrophy, muscles strength 5/5 upper and lower extremities. No bony tenderness of bilateral upper extremities. NEURO:CN 2-12 intact, sensation normal. SKIN: Patient has ecchymosis of the right forearm as well as the left forearm. Initial Vital Signs Initial Vital Signs: Vital Signs Temperature 97 F L 03/22/21 00:03 Pulse Rate 84 03/22/21 00:03 Respiratory Rate 18 03/22/21 00:03 Blood Pressure 165/80 H 03/22/21 00:03 Pulse Oximetry 99 03/22/21 00:03 Course Orders Ordered: Discontinued Medications Ketorolac Tromethamine (Ketorolac 30 Mg/Ml Vial) 30 mg IM NOW ONE Stop: 03/22/21 04:09 Last Admin: 03/22/21 04:18 Dose: 30 mg Documented by: JUAN F Ondansetron HCl (Ondansetron 4 Mg Odt Prepack) 1 bottle [facility] SEEIN[facility] ONE Stop: 03/22/21 04:09 Last Admin: 03/22/21 04:18 Dose: 1 bottle Documented by: JUAN F Vital Signs Vital signs: Vital Signs - 8 hr 03/22/21 00:03 Temperature 97 F L Pulse Rate 84 Respiratory Rate 18 Blood Pressure 165/80 H Pulse Oximetry 99 MDM - Extremity Injury (Lower) Imaging Data Extremity x-ray #1: Radiologist's Impression: nap. Discharge Plan Departure Patient Disposition: Home Clinical Impression: Contusion of knee, right, Concussion, Traumatic hematoma of forearm Instructions: DI for Concussion, DI for Knee Pain Activity Restrictions/Additional Instructions: Follow-up with your physician next week for recheck. You may continue home medications as prescribed. You may take Zofran 1 tablet every 6 hours as needed for nausea. May take pain medication 1 tablet every 12 hours as needed. Prescription was sent to [facility] in [place]. Splint Care: Keep knee immobilizer clean and dry. Elevated affected body part to decrease swelling. OK to use ice pack on the affected body part. Use for 15-20 minutes each time, for 5-6x per day. If you develop worsening pain, numbness, tingling, discoloration of the affected body part, adjust the knee immobilizer, and either see your doctor for an urgent re-assessment, or return to the Emergency Department. Return to the Emergency Department for any new or worsening symptoms. Prescriptions: New meloxicam [Mobic] 7.5 mg tablet 7.5 mg PO DAILY PRN (Reason: pain) Qty: 14 RF: 0 No Action duloxetine [Cymbalta] 60 mg capsule,delayed release(DR/EC) 60 mg PO BID Qty: 60 RF: 3 prazosin 2 mg capsule See Rx Instructions .ROUTE .COMPLEX Qty: 120 RF: 2 clonazepam 1 mg tablet 1 mg PO TID Qty: 90 RF: 0 fluticasone propionate 16 GM spray,suspension 1 spray Intranasal SEE INSTRUCTIONS Qty: 16 RF: 6 (DME) Disabled Parking Permit Qty: 1 RF: 0 duloxetine 30 mg capsule,delayed release(DR/EC) See Rx Instructions .ROUTE .COMPLEX Qty: 30 RF: 2 lamotrigine [Lamictal] 100 mg tablet 200 mg PO BEDTIME Qty: 60 RF: 3 oxycodone-acetaminophen [Percocet] 5-325 mg tablet 1 tab PO Q6H PRN (Reason: pain) Qty: 120 RF: 0 carisoprodol 350 mg tablet See Rx Instructions .ROUTE .COMPLEX Qty: 90 RF: 2 gabapentin 600 mg tablet See Rx Instructions .ROUTE .COMPLEX Qty: 180 RF: 3 quetiapine 50 mg tablet See Rx Instructions PO ONCE HS Qty: 150 RF: 3 omeprazole 20 mg capsule,delayed release(DR/EC) See Rx Instructions .ROUTE .COMPLEX Qty: 60 RF: 2 lidocaine [Lidoderm] 5 % adhesive patch,medicated 1 patch Topical Q12H PRN (Reason: pain) Qty: 15 RF: 0 naproxen 500 mg tablet 500 mg PO BID Qty: 28 RF: 0 Referrals: Manuela Redd DO [Primary Care Provider] -
[2021-03-22] MEDS: ONDANSETRON 4 MG ODT PREPACK 1 BOTTLE MISC (04:18)
[2021-03-22] MEDS: KETOROLAC 30 MG/ML VIAL IM (04:18)
[2021-03-22 04:46] VITALS: BP 123/70; PULSE 80; RESP 18; O2SAT 98
== END 2021-03-22 04:50 | disposition home or self-care (01) ==
PROVIDERS: Emergency Provider Emergency Medicine; PCP Family Medicine
DX: S06.0X0A Concussion without loss of consciousness, initial encounter (principal); S80.01XA Contusion of right knee, initial encounter; S50.11XA Contusion of right forearm, initial encounter; W18.09XA Striking against other object with subsequent fall, initial encounter
CPT/HCPCS: 73562; 96372; 99283; 99284; J1885

== ENCOUNTER 2021-05-07 15:04 | Emergency (ER) | payer MEDICARE, SELFPAY ==
[2021-05-07] MEDS: EPINEPHrine 1 MG/ML 0.5 MG IM (15:15)
[2021-05-07] MEDS: diphenhydrAMINE 50 MG/ML VIAL 25 MG IV (15:18)
[2021-05-07] MEDS: DEXAMETHASONE 10 MG/ML VIAL IV (15:20)
[2021-05-07] MEDS: FAMOTIDINE 20 MG/2 ML VIAL IV (15:23)
[2021-05-07] MEDS: SODIUM CHLORIDE 0.9% 1,000 ML 1000 ML IV (15:25)
[2021-05-07 15:30] VITALS: BP 124/62; PULSE 86; RESP 18; O2SAT 97
--- NOTE | 2021-05-07 15:33 | ED.ALLEREA ---
HPI - Allergic Reaction General Chief complaint: Upper Respiratory Symptoms Stated complaint: THROAT CLOSING Time Seen by Provider: 05/07/21 15:05 Source: patient Mode of arrival: Ambulatory History of Present Illness HPI narrative: 55-year-old female daily smoker with history of PTSD and fibromyalgia presents with family in the chief complaint of a relatively sudden onset throat pain and the sensation that it is closing. She went to sleep earlier today and was at her baseline and feeling fine. She woke up with the above-stated complaints. She has had no new medications, foods or exposure to other known allergens. She denies any history of the same. She has had no runny nose, sneezing or cough. She denies any difficulty breathing. She feels like something is getting caught in the back of her throat. It is worse when she lays flat and improves when she sits up. Related Data Previous Rx's Medication Instructions Recorded fluticasone propionate 50 1 spray INTRANASAL SEE 11/27/17 mcg/actuation nasal INSTRUCTIONS #16 gm spray,suspension lidocaine 5 % topical patch 1 patch TOPICAL Q12H PRN #15 each 04/02/19 (Lidoderm) naproxen 500 mg tablet 500 mg PO BID #28 tab 06/08/19 duloxetine 60 mg capsule,delayed 60 mg PO BID #60 cap 01/11/20 release (Cymbalta) Disabled Parking Permit #1 ea 03/11/20 duloxetine 30 mg capsule,delayed See Rx Instructions .ROUTE 05/26/20 release .COMPLEX #30 cap prazosin 2 mg capsule See Rx Instructions .ROUTE 11/28/20 .COMPLEX #120 cap lamotrigine 100 mg tablet 200 mg PO BEDTIME #60 tab 03/02/21 (Lamictal) gabapentin 600 mg tablet See Rx Instructions .ROUTE 03/14/21 .COMPLEX #180 tab meloxicam 7.5 mg tablet (Mobic) 7.5 mg PO DAILY PRN #14 tab 03/22/21 quetiapine 50 mg tablet See Rx Instructions PO ONCE HS 03/22/21 #150 tab omeprazole 20 mg capsule,delayed See Rx Instructions .ROUTE 03/31/21 release .COMPLEX #60 cap carisoprodol 350 mg tablet See Rx Instructions .ROUTE 04/10/21 .COMPLEX #90 tab clonazepam 1 mg tablet 1 mg PO TID #90 tab 05/04/21 oxycodone-acetaminophen 5 mg-325 1 tab PO Q6H PRN #120 tab 05/05/21 mg tablet (Percocet) prednisone 20 mg tablet 20 mg PO DAILY #5 tab 05/07/21 Allergies Allergy/AdvReac Type Severity Reaction Status Date / Time Penicillins Allergy Severe THROAT Verified 04/25/21 15:51 SWELLING pain contract Allergy Unknown Uncoded 04/25/21 15:51 Review of Systems Review of Systems Narrative: GENERAL: See HP HEENT: See HPI RESPIRATORY: See HPI CARDIOVASCULAR: Denies chest pain, palpitations, orthopnea, edema, GASTROINTESTINAL: Denies nausea, vomiting, abdominal pain, diarrhea, constipation, melena. : Denies dysuria, frequency, incontinence, hematuria, urinary retention. MUSCULOSKELETAL: denies weakness, joint pain, or bony pain SKIN: Denies rash, skin lesions, or other NEUROLOGIC: Denies weakness, headache, numbness, change in speech, confusion, seizures, incoordination. PSYCHIATRIC: No concerning psychosocial issues. 12 point review of systems is negative except for those stated above Patient History Medical History (Updated 05/07/21 @ 17:14 by Amarjit Chow DO) Abscess of skin Acute viral sinusitis Adenoma of left adrenal gland (2011) ADHD (attention deficit hyperactivity disorder) Anxiety Asthma Bipolar disorder Cervical polyp (08/2012) Cervical spine disease Chronic back pain Colon polyps CTS (carpal tunnel syndrome) Cyst of breast, diffuse fibrocystic Depression Fibromyalgia Foot pain Gastric ulcer Hearing loss Kidney infection Lumbar spine pain Pain management contract agreement Peptic ulcer disease PTSD (post-traumatic stress disorder) Recurrent sinusitis Shingles Strain of gluteus medius of left lower extremity Surgical History History of colonoscopy (07/2013) History of cystoscopy (07/2013) History of endometrial ablation (10/2012) History of esophagogastroduodenoscopy (EGD) (03/2013) History of esophagogastroduodenoscopy (EGD) (10/26/13) History of lumbar surgery (~1989) Social History Smoking Status: Current every day smoker Smoking Status: Current every day smoker tobacco type: cigarettes alcohol intake frequency: 0-2 drinks per day Substance Use Type: does not use Exam Narrative Exam Narrative: GENERAL: [55 year old patient appears stated age. Well-developed patient, in mild distress. Anxious and tearful HEAD: Atraumatic. Normocephalic. EYES: Pupils equal round and reactive. Extraocular motions intact. No scleral icterus. No injection or drainage. ENT: Nose without bleeding, purulent drainage. Minimal posterior pharyngeal erythema with what appears to be a swollen uvula. No evidence of edema, tonsillar swelling, exudate or soft palate petechiae. NECK: Trachea midline. Non tender. No obvious external manifestation of disease CARDIOVASCULAR: Regular rate and rhythm without murmurs, gallops, or rubs. RESPIRATORY: Clear to auscultation. Breath sounds equal bilaterally. No wheezes, rales, or rhonchi. GASTROINTESTINAL: Abdomen soft, non-tender, nondistended. EXTREMITIES: No edema or joint tenderness. BACK: Nontender without deformity or crepitance. No flank tenderness. NEURO: AOx3. SKIN: No rash or erythema of visible areas Initial Vital Signs Initial Vital Signs: Vital Signs Pulse Rate 86 05/07/21 15:30 Respiratory Rate 18 05/07/21 15:30 Blood Pressure 124/62 05/07/21 15:30 Pulse Oximetry 97 05/07/21 15:30 Course Orders Ordered: Discontinued Medications Dexamethasone (Dexamethasone 10 Mg/Ml Vial) 10 mg IV NOW ONE Stop: 05/07/21 15:11 Last Admin: 05/07/21 15:20 Dose: 10 mg Documented by: JEREMIE Diphenhydramine HCl (Diphenhydramine 50 Mg/Ml Vial) 25 mg IV NOW ONE Stop: 05/07/21 15:11 Last Admin: 05/07/21 15:18 Dose: 25 mg Documented by: JEREMIE Epinephrine HCl (Epinephrine 1 Mg/Ml) 0.5 mg IM NOW ONE Stop: 05/07/21 15:11 Last Admin: 05/07/21 15:15 Dose: 0.5 mg Documented by: JEREMIE Famotidine (Famotidine 20 Mg/2 Ml Vial) 20 mg IV NOW IRMA Last Admin: 05/07/21 15:23 Dose: 20 mg Documented by: JEREMIE Sodium Chloride (Normal Saline 0.9%) 1,000 mls @ 1,000 mls/hr IV BOLUS ONE Stop: 05/07/21 16:09 Last Infusion: 05/07/21 16:49 Dose: 0 mls/hr Documented by: Admin: 05/07/21 15:25 Dose: 1,000 mls/hr Documented by: JEREMIE Reevaluation(s) Reevaluation #1: Patient resting comfortably and feeling much better MDM - Allergic Reaction Lab Data Labs: Point of Care Testing Rapid Strep A Negative Discharge Plan Departure Patient Disposition: Home Clinical Impression: Uvulitis Instructions: DI for Uvulitis Activity Restrictions/Additional Instructions: *You have been diagnosed with [throat swelling most likely due to inflammation of your uvula, your response to medications and physical exam are very reassuring *What to do: *Please continue to take your regular medications as directed. [x ] New medication prescriptions sent to your pharmacy: [[facility]] [ ] New medication written as a paper prescription [ ] No new medications given *Please follow up with your primary care provider in 2-3 days, call for an appointment. Let them know you were seen in the Emergency Department and that we ask that you be seen in follow up. We will electronically transmit a record of today's note if your PCP is in our system *If you do not have a primary care provider please contact the [facility] Resource line at [phone]. They will ask some questions about your medical history and help get you set up with a doctor in the community. *Return to Emergency Department if you should have any new, worsening or concerning symptoms, such as [fever greater than 101 F, shaking chills, worsening pain, persistent vomiting or other bothersome symptoms] Prescriptions: New prednisone 20 mg tablet 20 mg PO DAILY Qty: 5 RF: 0 No Action duloxetine [Cymbalta] 60 mg capsule,delayed release(DR/EC) 60 mg PO BID Qty: 60 RF: 3 prazosin 2 mg capsule See Rx Instructions .ROUTE .COMPLEX Qty: 120 RF: 2 fluticasone propionate 16 GM spray,suspension 1 spray Intranasal SEE INSTRUCTIONS Qty: 16 RF: 6 (DME) Disabled Parking Permit Qty: 1 RF: 0 duloxetine 30 mg capsule,delayed release(DR/EC) See Rx Instructions .ROUTE .COMPLEX Qty: 30 RF: 2 lamotrigine [Lamictal] 100 mg tablet 200 mg PO BEDTIME Qty: 60 RF: 3 gabapentin 600 mg tablet See Rx Instructions .ROUTE .COMPLEX Qty: 180 RF: 3 quetiapine 50 mg tablet See Rx Instructions PO ONCE HS Qty: 150 RF: 3 omeprazole 20 mg capsule,delayed release(DR/EC) See Rx Instructions .ROUTE .COMPLEX Qty: 60 RF: 2 carisoprodol 350 mg tablet See Rx Instructions .ROUTE .COMPLEX Qty: 90 RF: 2 clonazepam 1 mg tablet 1 mg PO TID Qty: 90 RF: 0 oxycodone-acetaminophen [Percocet] 5-325 mg tablet 1 tab PO Q6H PRN (Reason: pain) Qty: 120 RF: 0 lidocaine [Lidoderm] 5 % adhesive patch,medicated 1 patch Topical Q12H PRN (Reason: pain) Qty: 15 RF: 0 naproxen 500 mg tablet 500 mg PO BID Qty: 28 RF: 0 meloxicam [Mobic] 7.5 mg tablet 7.5 mg PO DAILY PRN (Reason: pain) Qty: 14 RF: 0 Referrals: Manuela Redd DO [Primary Care Provider] -
[2021-05-07 15:55] VITALS: BP 117/63; PULSE 80; RESP 18; O2SAT 97
[2021-05-07 16:20] VITALS: BP 119/59; PULSE 75; RESP 18; O2SAT 96
[2021-05-07 16:55] VITALS: BP 127/62; PULSE 80; RESP 18; O2SAT 98
== END 2021-05-07 17:21 | disposition home or self-care (01) ==
PROVIDERS: Emergency Provider Emergency Medicine; PCP Family Medicine
DX: K12.2 Cellulitis and abscess of mouth (principal)
CPT/HCPCS: 36415; 87070; 87880; 96361; 96372; 96374; 96375; 99284; J0171; J1100; J1200

== ENCOUNTER → 2021-07-03 17:15 | Outpatient (CLI) | payer MEDICARE, SELFPAY ==
[2021-07-03 19:07] LABS: Creatinine Urine Random 311.7 mg/dL
[2021-07-03 19:09] LABS: Microalbumi Creatinin Ratio Ur 11.2 ug/mg CR (<30); Microalbumin Urine Random 3.5 mg/dL (0-1.6)
== END ==
PROVIDERS: Family Provider Family Medicine; PCP Family Medicine; Referring Provider Family Medicine; Visit Provider Family Medicine
DX: I10 Essential (primary) hypertension (principal)
CPT/HCPCS: 82043; 82570

== ENCOUNTER → 2022-04-25 08:23 | Outpatient (CLI) | payer OTHER, SELFPAY ==
--- NOTE | 2022-04-25 08:24 | DI.US.S_ITS ---
PROCEDURE: US ABDOMEN LIMITED INDICATIONS: Abdominal pain TECHNIQUE: Real-time scanning was performed of the abdominal and retroperitoneal organs, with image documentation. COMPARISON: None. FINDINGS: Liver: The present the upper limits of normal with steatosis. Gallbladder: No stones. Wall thickness is normal measuring 1.8 mm. Biliary ducts: Intrahepatic bile ducts are non-dilated. Extrahepatic bile duct caliber is not well visualized. Pancreas: Visualized portions of the pancreas are sonographically normal. IMPRESSION: Hepatic steatosis. Gallbladder is unremarkable. Dictated by: Ximena Thornton M.D. on 04/25/2022 at 13:45 Approved by: Ximena Thornton M.D. on 04/25/2022 at 13:46
== END ==
PROVIDERS: Family Provider Family Medicine; PCP Family Medicine; Referring Provider Surgery; Visit Provider Surgery
DX: R10.9 Unspecified abdominal pain (principal); K76.0 Fatty (change of) liver, not elsewhere classified
CPT/HCPCS: 76705

== ENCOUNTER → 2022-09-21 11:10 | Outpatient (CLI) | payer OTHER, SELFPAY ==
--- NOTE | 2022-09-21 11:11 | DI.RAD.S_ITS ---
PROCEDURE: FL BARIUM SWALLOW INDICATIONS: dysphagia COMPARISON: [facility] , BARIUM SWALLOW, 11/02/2013, 9:36. FINDINGS: Function: There are several episodes of abnormal esophageal peristalsis resulting in delayed and retrograde flow of ingested oral contrast. There also multiple episodes of tertiary contractions/esophageal spasms. No elicited gastroesophageal reflux. There is normal transit of a calibrated barium tablet through the esophagus into the stomach. Morphology: Air-contrast images demonstrate normal mucosal morphology. Single contrast views show no esophageal strictures, extrinsic mass effects, or diverticula. Small-moderate sized sliding hiatal hernia is redemonstrated. Limited images of the stomach demonstrate normal appearance. IMPRESSION: 1. Small-moderate sized sliding hiatal hernia. 2. Esophageal dysmotility. Dictated by: Tim Carrillo M.D. on 09/21/2022 at 17:56 Approved by: Tim Carrillo M.D. on 09/21/2022 at 17:59
== END ==
PROVIDERS: Family Provider Family Medicine; PCP Family Medicine; Referring Provider Surgery; Visit Provider Surgery
DX: K21.00 Gastro-esophageal reflux disease with esophagitis, without bleeding (principal); R13.10 Dysphagia, unspecified; K44.9 Diaphragmatic hernia without obstruction or gangrene; K22.4 Dyskinesia of esophagus
CPT/HCPCS: 74220

== ENCOUNTER 2022-11-22 14:04 | Day surgery (SDC) | payer OTHER, SELFPAY ==
[2022-11-22] VITALS (15 sets, daily range): BP systolic 124–162; BP diastolic 48–99; PULSE 63–997; RESP 16–30; TEMP 36.2–36.8; O2SAT 94–100; BMI 42.0
--- NOTE | 2022-11-22 | PATH_ITS ---
[facility] Accession Number: [id number] No. of containers..01 Tissue . 01 Material submitted: . stomach - ANTRUM . 01 Diagnosis: Antrum, Biopsy: Gastric mucosa with minimal chronic nonspecific inflammation. No Helicobacter pylori organisms identified on immunohistochemical evaluation. No intestinal metaplasia, dysplasia, or malignancy identified. [facility] 11/27/2022 1142 Local . 01 Electronically signed: . Heather Ny MD, Pathologist NPI- [id number] . 01 Gross description: . ANTRUM: Received in formalin is 1 fragment(s) of mondragon, soft tissue measuring 0.3 x 0.2 x 0.2 cm submitted entirely in 1 cassette(s) /KARAN 11/23/2022 1909 Local . 01 Microscopic: . A. An immunohistochemical stain was performed to evaluate for Helicobacter organisms and is negative. The control stain showed appropriate reactivity. . 01 Pathologist provided ICD-10: K29.30 . 01 CPT . 298119, R42951 Specimen Comment: A courtesy copy of this report has been sent to [phone] Performed at: 01 [facility] [address] [place] [address], [place], [place] [id number] MD Gigi Szymanski MD Phone: [phone]
--- NOTE | 2022-11-22 14:45 | PM.HP.1 ---
History of Present Illness History of Present Illness Date Patient Seen: 11/22/22 Time Patient Seen: 14:45 Chief complaint: [facility] [place] Narrative: Lizeth is here for her EGD. Please see the office note from May for details. She has a lot of anxiety and did not take her anxiety meds today. Patient History Medical History (Updated 06/20/22 @ 16:27 by Yair Rosenberg DO) Abscess of skin Acute bilateral knee pain Acute viral sinusitis Adenoma of left adrenal gland (2011) ADHD (attention deficit hyperactivity disorder) Anxiety Asthma Bipolar disorder Cervical polyp (08/2012) Cervical spine disease Chronic back pain Colon polyps CTS (carpal tunnel syndrome) Cyst of breast, diffuse fibrocystic Depression Fibromyalgia Foot pain Gastric ulcer Hearing loss Kidney infection Lumbar spine pain Pain management contract agreement Peptic ulcer disease PTSD (post-traumatic stress disorder) Recurrent sinusitis Shingles Strain of gluteus medius of left lower extremity Surgical History History of colonoscopy (07/2013) History of cystoscopy (07/2013) History of endometrial ablation (10/2012) History of esophagogastroduodenoscopy (EGD) (03/2013) History of esophagogastroduodenoscopy (EGD) (10/26/13) History of lumbar surgery (~1989) Family & Social History Tobacco & Substance use: Smoking Status Former smoker alcohol intake frequency 0-2 drinks per day Substance Use Type does not use Meds Home Medications and Allergies Home Medications Medication Instructions Recorded Confirmed Type Disabled Parking Permit #1 ea 08/22/21 06/20/22 Rx Depends #1 ea 09/27/21 06/20/22 Rx omeprazole 40 mg capsule,delayed 40 mg PO DAILY #90 caps 02/16/22 06/20/22 Rx release fluticasone propionate 50 1 spray intranasal SEE 06/20/22 06/20/22 Rx mcg/actuation nasal INSTRUCTIONS ##16 spray,suspension lidocaine 5 % topical patch 1 patch topical Q12H PRN pain #15 06/20/22 06/20/22 Rx (Lidoderm) ea duloxetine 60 mg capsule,delayed 60 mg PO BID #180 caps 09/13/22 09/13/22 Rx release (Cymbalta) gabapentin 600 mg tablet 1,200 mg PO TID #360 tabs 09/13/22 09/13/22 Rx lamotrigine 200 mg tablet 200 mg PO BEDTIME #90 tabs 09/13/22 09/13/22 Rx prazosin 2 mg capsule See Rx Instructions .Route 09/13/22 09/13/22 Rx .COMPLEX #360 caps quetiapine 50 mg tablet See Rx Instructions .Route 09/13/22 09/13/22 Rx .COMPLEX insomnia #360 tabs carisoprodol 350 mg tablet 350 mg PO TID PRN muscle pain #90 11/05/22 Rx tabs oxycodone-acetaminophen 5 mg-325 See Rx Instructions .Route 11/08/22 Rx mg tablet .COMPLEX #180 tabs clonazepam 1 mg tablet 1 mg PO TID #75 tabs 11/21/22 Rx Allergies Allergy/AdvReac Type Severity Reaction Status Date / Time Penicillins Allergy Severe THROAT Verified 06/05/22 16:31 SWELLING Exam Narrative Exam Narrative: Extremely anxious and agitated Assessment & Plan Assessment and plan (1) Dysphagia: Qualifiers: Dysphagia type: unspecified Qualified Code(s): R13.10 - Dysphagia, unspecified Status: Acute Plan We will proceed with esophagogastroduodenoscopy
[2022-11-22] MEDS: MIDAZOLAM 2 MG/2 ML VIAL 1 MG IV ×4 (15:07→15:54)
--- NOTE | 2022-11-22 16:10 | PM.OP.EGD ---
Operative Date/Time/Diagnoses Date of procedure: 11/22/22 Time of procedure: 16:11 Pre-op diagnosis: Dysphagia Post-op diagnosis: same Procedure & Clinicians Study performed: Esophagogastroduodenoscopy Same procedure as scheduled: Yes Surgeon: Charan Henderson Procedure Notes Procedure in detail: Surgeon: Charan Henderson MD Anesthesia: Dr. Contreras A timeout was performed. A bite blocked was placed. The patient was positioned in the left lateral decubitus position. Anesthesia was administered. The endoscope was inserted through the bite block and passed through the esophagus and stomach and into the duodenum. The duodenal mucosa appeared normal. The scope was withdrawn into the duodenal bulb and no abnormalities were seen. The scope was withdrawn into the stomach. There was some mild antritis and random biopsies were taken from the antrum. The rest of the stomach was normal. The scope was retroflexed and no abnormalities were seen. The scope was withdrawn into the esophagus and no abnormalities were seen. The remainder of the esophagus was normal. The scope was withdrawn. The patient was awakened and brought to recovery. Sedation time: 4 minutes Findings: Mild antritis, no esophageal abnormalities Post-procedure Disposition: PACU
--- NOTE | 2022-11-22 16:18 | SUR.PHASEI ---
received to PACU after MAC. Report from Dr Contreras and DAYAN kate.
[2022-11-22] MEDS: LACTATED RINGERS 1,000 ML 42 ML IV (16:37)
== END 2022-11-22 16:44 | disposition home or self-care (01) ==
PROVIDERS: Family Provider Family Medicine; PCP Family Medicine; Referring Provider Surgery; Visit Provider Surgery
PROC: 0DJ08ZZ Inspection of Upper Intestinal Tract, Via Natural or Artificial Opening Endoscopic (ICD-10-PCS; CPT 43235; principal; 2022-11-22 15:30)
DX: R13.10 Dysphagia, unspecified (principal); K29.50 Unspecified chronic gastritis without bleeding
CPT/HCPCS: 43239; 43235; J2250; J3010

== ENCOUNTER 2023-07-10 17:33 | Emergency (ER) | payer OTHER, SELFPAY ==
[2023-07-10 17:37] VITALS: BP 120/64; PULSE 91; RESP 20; TEMP 36.6; O2SAT 97; BMI 43.9
[2023-07-10 18:26] LABS: Alanine Aminotransferase 28 IU/L (<35); Albumin 4.1 g/dL (3.5-5.0); Albumin Globulin Ratio 1.3 (1.0-2.8); Alkaline Phosphatase 83 U/L (38-126); Aspartate Aminotransferase 29 IU/L (14-36); Bilirubin Total 0.7 mg/dL (0.2-1.3); Blood Urea Nitrogen 12 mg/dL (7-17); Calcium 9.5 mg/dL (8.4-10.2); Carbon Dioxide 26 mmol/L (22-32); Chloride 103 mmol/L (98-107); Estimated Glomerular Filt Rate > 60 mL/min (>60); Globulin 3.2 g/dL (1.7-4.1); Glucose 101 mg/dL (70-100); HEMOLYSIS < 15 (0-50); Lipase 87 U/L (23-300); Sodium 136 mmol/L (137-145); Total Protein 7.3 g/dL (6.3-8.2)
[2023-07-10 18:30] LABS: Add Manual Diff / Slide Review NO; Basophils Absolute Auto 100 /uL (0-100); Basophils Percent Auto 0.9 % (0-2); Eosinophils Absolute Auto 100 /uL (0-450); Eosinophils Percent Auto 1.1 % (2-4); Hematocrit 38.4 % (36-46); Hemoglobin 13.2 g/dL (12.0-16.0); Lymphocytes Absolute Auto 1700 /uL (1100-4500); Mean Corpuscular HGB Conc 34.2 % (30-36); Mean Corpuscular Hemoglobin 28.6 PG (26-34); Mean Corpuscular Volume 83.5 fL (80-100); Monocytes Absolute Auto 1000 /uL (0-900); Monocytes Percent Auto 9.3 % (3-14); Neutrophils Absolute Auto 7700 /uL (1500-7000); Neutrophils Percent Auto 72.7 % (50-75); Platelet Count 309 X10^3/uL (150-400); Red Blood Cell Count 4.61 X10^6/uL (4.0-5.2); Red Cell Distribution Width 15.3 % (11.6-14.8); White Blood Cell Count 10.6 X10^3/uL (4.5-11.0)
--- NOTE | 2023-07-10 18:33 | ED_ITS ---
HPI - Back Pain/Injury General Chief Complaint: Back Pain/Injury Stated Complaint: LEFT SIDE SHUTTING DOWN PAINFULL Time Seen by Provider: 07/10/23 18:04 Source: patient and family History of Present Illness HPI Narrative: Patient 57-year-old female history of fibromyalgia presenting today with severe pain all along her left side. She reports that abdomen hurts it goes up to her chest it goes around to her back. It has been there for a couple of days. She feels like she has a fever she is weak. She does have a cough it is nonproductive. No painful frequent urination. She generally is not feeling wrap. She is not taken anything at home for pain. no nausea or vomiting. She is having some left-sided abdominal pain not really on the right side. No palpitations. Related Data Previous Rx's Medication Instructions Recorded Disabled Parking Permit #1 ea 08/22/21 Depends #1 ea 09/27/21 omeprazole 40 mg capsule,delayed 40 mg PO DAILY #90 caps 02/16/22 release fluticasone propionate 50 1 spray intranasal SEE 06/20/22 mcg/actuation nasal INSTRUCTIONS ##16 spray,suspension lidocaine 5 % topical patch 1 patch topical Q12H PRN pain #15 06/20/22 (Lidoderm) ea lamotrigine 200 mg tablet 200 mg PO BEDTIME #90 tabs 09/13/22 prazosin 2 mg capsule See Rx Instructions .Route 09/13/22 .COMPLEX #360 caps quetiapine 50 mg tablet See Rx Instructions .Route 12/13/22 .COMPLEX insomnia #360 tabs duloxetine 60 mg capsule,delayed 60 mg PO BID #180 caps 05/16/23 release (Cymbalta) gabapentin 600 mg tablet 1,200 mg (2 x 600 mg) PO TID #540 06/03/23 tabs oxycodone-acetaminophen 5 mg-325 1 tab .Route QID #120 tabs 06/13/23 mg tablet clonazepam 1 mg tablet 1 mg PO TID PRN severe anxiety #70 06/17/23 tabs methocarbamol 500 mg tablet 500 mg PO TID PRN muscle spasm #90 07/06/23 tabs levofloxacin 750 mg tablet 750 mg PO DAILY 5 days #5 tabs 07/10/23 Allergies Allergy/AdvReac Type Severity Reaction Status Date / Time Penicillins Allergy Severe THROAT Verified 05/23/23 16:50 SWELLING Patient History Medical History Acute bilateral knee pain Pain management contract agreement Strain of gluteus medius of left lower extremity Recurrent sinusitis Lumbar spine pain Foot pain Cervical spine disease Bipolar disorder Cyst of breast, diffuse fibrocystic Peptic ulcer disease Gastric ulcer Adenoma of left adrenal gland (2011) Cervical polyp (08/2012) Hearing loss CTS (carpal tunnel syndrome) Chronic back pain Fibromyalgia ADHD (attention deficit hyperactivity disorder) Anxiety Depression PTSD (post-traumatic stress disorder) Asthma Colon polyps Acute viral sinusitis Kidney infection Abscess of skin Shingles Surgical History History of lumbar surgery (~1989) History of endometrial ablation (10/2012) History of colonoscopy (07/2013) History of esophagogastroduodenoscopy (EGD) (10/26/13) History of esophagogastroduodenoscopy (EGD) (03/2013) History of cystoscopy (07/2013) Social History household members: spouse Smoking Status: Former smoker Tobacco: How many years used: 2 alcohol intake: current (2 drinks per month ) substance use type: does not use Smoking Status: Former smoker tobacco type: cigarettes alcohol intake frequency: 0-2 drinks per day Substance Use Type: does not use Exam Initial Vital Signs Initial Vital Signs: Vital Signs Temperature 97.8 F 07/10/23 17:37 Pulse Rate 91 H 07/10/23 17:37 Respiratory Rate 20 07/10/23 17:37 Blood Pressure 120/64 07/10/23 17:37 Pulse Oximetry 97 07/10/23 17:37 Oxygen Delivery Method Room Air 07/10/23 17:37 GENERAL: Alert 57-year-old female appears uncomfortable and in no acute distress. HEENT: Head atraumatic,EOMI, pupils reactive, face symmetric, moist mucous membranes CARDIOVASCULAR: Regular rate and rhythm without murmurs, rubs or gallops. RESPIRATORY: Breath sounds equal bilaterally, no wheezes rales or rhonchi. ABDOMEN: Soft, nontender. Normoactive bowel sounds all 4 quadrants. No guarding or rebound. BACK: Over back pain thoracic lumbar on left side not right side no vertebral tenderness : No CVA tenderness EXTREMITIES: Normal range of motion, no clubbing or edema. Neurovascularly intact NEUROLOGICAL: Alert and oriented x4. Moving all extremities SKIN: Warm, dry, no laceration, no petechiae, no rashes or lesions. Scores CURB-65 Confusion: No BUN >19mg/dL (>7mmol/L): No Respiratory rate greater or equal to 30: No SBP <90mmHg or DBP less or equal to 60mmHg: No Age 65 or Older: No CURB-65 Total: 0 Score 0-1 Outpatient care, Score 2 Inpt vs. Obs, Score 3 or over Inpt admit with ICU for score of 4-5 Course Orders Ordered: ED Orders 07/10/23 18:11 Complete Blood Count AUTO DIFF Stat Comprehensive Metabolic Panel Stat Lipase Stat 07/10/23 18:42 CT abdomen pelvis w con Stat EKG-12 Lead Stat 07/10/23 20:03 Chest [XR chest 1V] Stat 07/10/23 20:16 BNP [NT-proBNP (BNP-Adult 18+)] Stat Lactate (Lactic Acid) Stat Troponin & CK Cardiac Panel Stat Discontinued Medications Sodium Chloride (Normal Saline 0.9%) 1,000 mls @ 1,000 mls/hr IV BOLUS ONE Stop: 07/10/23 21:02 Last Infusion: 07/10/23 21:15 Dose: Infused Documented By: Admin: 07/10/23 20:15 Dose: 1,000 mls/hr Documented By: ADELA Ketorolac Tromethamine (Ketorolac 30 Mg/Ml Vial) 15 mg IV NOW ONE Stop: 07/10/23 18:43 Last Admin: 07/10/23 18:48 Dose: 15 mg Documented By: YASMEEN Levofloxacin (Levofloxacin 250 Mg Tablet) 750 mg PO NOW ONE Stop: 07/10/23 21:03 Last Admin: 07/10/23 21:11 Dose: 750 mg Documented By: RENATA Ondansetron HCl (Ondansetron 4 Mg Odt) 4 mg PO NOW PRN PRN Reason: Nausea And Vomiting Ondansetron HCl (Ondansetron 4 Mg/2 Ml Inj) 4 mg IV NOW PRN PRN Reason: Nausea And Vomiting Vital Signs Vital signs: Vital Signs - 8 hr 07/10/23 17:37 07/10/23 20:02 11/08/23 20:16 Temperature 97.8 F Pulse Rate 91 H 63 Respiratory Rate 20 30 H Blood Pressure 120/64 118/58 L Pulse Oximetry 97 94 Oxygen Delivery Method Room Air 07/10/23 20:16 07/10/23 20:30 07/10/23 21:00 Temperature 98.2 F Pulse Rate 60 64 67 Respiratory Rate 29 H 27 H 26 H Blood Pressure 122/64 Pulse Oximetry 94 96 96 Oxygen Delivery Method MDM - Back Pain/Injury Lab Data 07/10/23 18:11 07/10/23 18:11 Labs: Lab Results 07/10/23 07/10/23 Range/Units 18:11 20:16 WBC 10.6 (4.5-11.0) X10^3/uL RBC 4.61 (4.0-5.2) X10^6/uL Hgb 13.2 (12.0-16.0) g/dL Hct 38.4 (36-46) % MCV 83.5 (80-100) fL MCH 28.6 (26-34) PG MCHC 34.2 (30-36) % RDW 15.3 H (11.6-14.8) % Plt Count 309 (150-400) X10^3/uL Neut % (Auto) 72.7 (50-75) % Lymph % (Auto) 16.0 L (25-40) % [place] % (Auto) 9.3 (3-14) % Eos % (Auto) 1.1 L (2-4) % Baso % (Auto) 0.9 (0-2) % Neut # (Auto) 7700 H (5706-3240) /uL Lymph # (Auto) 1700 (5584-5938) /uL [place] # (Auto) 1000 H (0-900) /uL Eos # (Auto) 100 (0-450) /uL Baso # (Auto) 100 (0-100) /uL Sodium 136 L (137-145) mmol/L Potassium 4.0 (3.4-5.1) mmol/L Chloride 103 (98-107) mmol/L Carbon Dioxide 26 (22-32) mmol/L BUN 12 (7-17) mg/dL Creatinine 0.75 (0.52-1.04) mg/dL Estimated GFR > 60 (>60) mL/min BUN/Creatinine Ratio 16.0 (6-22) Glucose 101 H (70-100) mg/dL Lactate 1.8 (0.7-2.1) mmol/L Calcium 9.5 (8.4-10.2) mg/dL Total Bilirubin 0.7 (0.2-1.3) mg/dL AST 29 (14-36) IU/L ALT 28 (<35) IU/L Alkaline Phosphatase 83 (38-126) U/L Total Creatine Kinase < 20 L (30-135) U/L Troponin I < 0.012 (0.01-0.034) ng/mL NT-Pro-B Natriuret Pep 76 (<125) pg/mL Total Protein 7.3 (6.3-8.2) g/dL Albumin 4.1 (3.5-5.0) g/dL Globulin 3.2 (1.7-4.1) g/dL Albumin/Globulin Ratio 1.3 (1.0-2.8) Lipase 87 (23-300) U/L Imaging Data Chest x-ray: Radiologist's Impression: PROCEDURE: XR CHEST 1V INDICATIONS: left pneumonia TECHNIQUE: One view of the chest was acquired. COMPARISON: [facility], CT, CT ABDOMEN PELVIS W CON, 07/10/2023, 18:53. [facility], CR, XR CHEST 1V, 10/24/2018, 13:58. FINDINGS: Surgical changes and devices: None. Lungs and pleura: Left lower lobe infiltrate consistent with pneumonia. No pleural effusions or pneumothorax. Mediastinum: Mediastinal contours appear normal. Heart size is normal. Bones and chest wall: No suspicious bony lesions. Overlying soft tissues appear unremarkable. IMPRESSION: Left lower lobe pneumonia. Dictated by: Theodora Franklin M.D. on 07/10/2023 at 20:47 CT scan - abdomen/pelvis: Radiologist's Impression: PROCEDURE: CT ABDOMEN PELVIS W CON INDICATIONS: left sided pain TECHNIQUE: After the administration of oral and IV contrast, axial sections were acquired from the lung bases to the pubic symphysis. Coronal and sagittal reformats were performed. For radiation dose reduction, the following was used: automated exposure control, adjustment of mA and/or kV according to patient size. COMPARISON: [facility], CT, KIDNEY/ URETER/BLADDER, 06/19/2016, 21:58. FINDINGS: Image quality: Excellent. Lung bases: Left lower lobe infiltrate and small left effusion suspicious for pneumonia. Small hiatal hernia. Heart: No significant findings. ABDOMEN: Liver: Unremarkable. Gallbladder: Unremarkable. Biliary ducts: Unremarkable. Pancreas: Unremarkable. Spleen: Unremarkable. Adrenal Glands: There is a 2 cm left adrenal nodule, most likely a benign adrenal adenoma. Kidneys and Ureters: Unremarkable. Stomach and Bowel: Stomach, small bowel loops, and colon are unremarkable. Peritoneum: No abnormal intraperitoneal fluid. No free air. Ventral Wall: No hernia. Abdominal Nodes: No retroperitoneal or mesenteric adenopathy by size criteria. Vessels: Aorta and inferior vena cava are normal in size. PELVIS: Pelvic Organs: Unremarkable. Bladder: Unremarkable. Pelvic Nodes: No enlarged lymph nodes. Miscellaneous: No inguinal hernias are seen. Bones: Unremarkable. Degenerative disc and facet disease in the lower lumbar spine. IMPRESSION: 1. Left lower lobe pneumonia. 2. A 2 cm left adrenal nodule, most likely a adrenal adenoma. Consider nonurgent adrenal protocol CT or MRI for further evaluation. 3. Small hiatal hernia. Dictated by: Theodora Franklin M.D. on 07/10/2023 at 19:23 ECG Data Interpretation: Sinus rhythm rate 61 VT interval 156 QRS [address] changes MDM Narrative Medical decision making narrative: Patient 57-year-old female presents today with left-sided all over body pain including back stomach chest. She is afebrile here vitals are stable. Blood work does not show any leukocytosis electrolyte abnormality or elevated lactate. Initially abdominal CT was done which found a left lower lobe pneumonia but no intra-abdominal pathology. Chest x-ray confirmed a left lower lobe pneumonia which would explain some of her pain. Pain was much improved with Toradol. She is an anaphylactic reaction to penicillin she was given a dose of Levaquin. At this time she is not hypoxic tachycardic or meeting any admission criteria. Curb 65 score is 0. Discharge Plan Departure Patient Disposition: Home Clinical Impression: Pneumonia Instructions: DI for Pneumonia -- Adult Activity Restrictions/Additional Instructions: *You have been diagnosed with left-sided pneumonia *What to do: At this time increase fluids as tolerated. You do have pneumonia. You should start to feel better and about 3-5 days *Continue to take medications as directed Levaquin 750 mg once a day for 5 days Tylenol 1000 mg every 6 hours if needed for pain or fever Motrin 600 mg every 6 hours if needed for pain or fever *Follow up with your primary care provider in 2-3 days or call [phone] *Return to ER if you should have increasing shortness of breath not tolerating fluids increasing pain [or] any new, worsening or concerning symptoms Prescriptions: New levofloxacin 750 mg tablet 750 mg PO DAILY 5 Days Qty: 5 0RF No Action lamotrigine 200 mg tablet 200 mg PO BEDTIME Qty: 90 3RF prazosin 2 mg capsule See Rx Instructions .ROUTE .COMPLEX Qty: 360 3RF Dose Instruction: TAKE 3 CAPSULES BY MOUTH BEDTIME FOR NIGHTMARES Rx Instructions: TAKE 4 CAPSULES BY MOUTH BEDTIME FOR NIGHTMARES (DME) Disabled Parking Permit Qty: 1 0RF Dose Instruction: As directed Rx Instructions: Patient Unable to walk more then 200 feet without stopping to rest. (DME) Depends See Rx Instructions .Route .MEDSUPPLY Qty: 1 6RF Rx Instructions: As directed omeprazole 40 mg capsule,delayed release(DR/EC) 40 mg PO DAILY Qty: 90 1RF quetiapine 50 mg tablet See Rx Instructions .ROUTE .COMPLEX Qty: 360 3RF Dose Instruction: PO ONCE HS; Rx Instructions: Take 1 tab PO QAM (50mg) and 4 tabs PO QHS (200mg) duloxetine [Cymbalta] 60 mg capsule,delayed release(DR/EC) 60 mg PO BID Qty: 180 1RF gabapentin 600 mg tablet 1,200 mg PO TID Qty: 540 1RF oxycodone-acetaminophen 5-325 mg tablet 1 tab .ROUTE QID Qty: 120 0RF Rx Instructions: 1 tab four times daily; must last 30 days. Pt is on too many sedating meds to continue previous rx clonazepam 1 mg tablet 1 mg PO TID PRN (Reason: severe anxiety) Qty: 70 0RF methocarbamol 500 mg tablet 500 mg PO TID PRN (Reason: muscle spasm) Qty: 90 1RF Rx Instructions: transition from SOMA fluticasone propionate 50 mcg/actuation spray,suspension 1 spray Intranasal SEE INSTRUCTIONS Qty: 16 6RF Patient Comments: not sure if still using. need to verify. lidocaine [Lidoderm] 5 % adhesive patch,medicated 1 patch Topical Q12H PRN (Reason: pain) Qty: 15 11RF Referrals: Neli Seymour DO [Primary Care Provider] - Stand Alone Forms: Patient Portal/API
--- NOTE | 2023-07-10 18:42 | DI.CT.S_ITS ---
PROCEDURE: CT ABDOMEN PELVIS W CON INDICATIONS: left sided pain TECHNIQUE: After the administration of oral and IV contrast, axial sections were acquired from the lung bases to the pubic symphysis. Coronal and sagittal reformats were performed. For radiation dose reduction, the following was used: automated exposure control, adjustment of mA and/or kV according to patient size. COMPARISON: [facility], CT, KIDNEY/ URETER/BLADDER, 06/19/2016, 21:58. FINDINGS: Image quality: Excellent. Lung bases: Left lower lobe infiltrate and small left effusion suspicious for pneumonia. Small hiatal hernia. Heart: No significant findings. ABDOMEN: Liver: Unremarkable. Gallbladder: Unremarkable. Biliary ducts: Unremarkable. Pancreas: Unremarkable. Spleen: Unremarkable. Adrenal Glands: There is a 2 cm left adrenal nodule, most likely a benign adrenal adenoma. Kidneys and Ureters: Unremarkable. Stomach and Bowel: Stomach, small bowel loops, and colon are unremarkable. Peritoneum: No abnormal intraperitoneal fluid. No free air. Ventral Wall: No hernia. Abdominal Nodes: No retroperitoneal or mesenteric adenopathy by size criteria. Vessels: Aorta and inferior vena cava are normal in size. PELVIS: Pelvic Organs: Unremarkable. Bladder: Unremarkable. Pelvic Nodes: No enlarged lymph nodes. Miscellaneous: No inguinal hernias are seen. Bones: Unremarkable. Degenerative disc and facet disease in the lower lumbar spine. IMPRESSION: 1. Left lower lobe pneumonia. 2. A 2 cm left adrenal nodule, most likely a adrenal adenoma. Consider nonurgent adrenal protocol CT or MRI for further evaluation. 3. Small hiatal hernia. Dictated by: Theodora Franklin M.D. on 07/10/2023 at 19:23 Approved by: Theodora Franklin M.D. on 07/10/2023 at 19:26
[2023-07-10] MEDS: KETOROLAC 30 MG/ML VIAL 15 MG IV (18:48)
[2023-07-10 20:02] VITALS: PULSE 63; RESP 30; O2SAT 94
--- NOTE | 2023-07-10 20:03 | DI.RAD.S_ITS ---
PROCEDURE: XR CHEST 1V INDICATIONS: left pneumonia TECHNIQUE: One view of the chest was acquired. COMPARISON: [facility], CT, CT ABDOMEN PELVIS W CON, 07/10/2023, 18:53. [facility], CR, XR CHEST 1V, 10/24/2018, 13:58. FINDINGS: Surgical changes and devices: None. Lungs and pleura: Left lower lobe infiltrate consistent with pneumonia. No pleural effusions or pneumothorax. Mediastinum: Mediastinal contours appear normal. Heart size is normal. Bones and chest wall: No suspicious bony lesions. Overlying soft tissues appear unremarkable. IMPRESSION: Left lower lobe pneumonia. Dictated by: Theodora Franklin M.D. on 07/10/2023 at 20:47 Approved by: Theodora Franklin M.D. on 07/10/2023 at 20:48
[2023-07-10] MEDS: SODIUM CHLORIDE 0.9% 1,000 ML 1000 ML IV (20:15)
[2023-07-10 20:16] VITALS: BP 118/58; PULSE 60; RESP 29; O2SAT 94
[2023-07-10 20:24] LABS: Creatine Kinase < 20 U/L (30-135)
[2023-07-10 20:25] LABS: Lactate (Lactic Acid) 1.8 mmol/L (0.7-2.1)
[2023-07-10 20:30] VITALS: PULSE 64; RESP 27; O2SAT 96
[2023-07-10 20:37] LABS: NT-proBNP (BNP-Adult 18+) 76 pg/mL (<125); Troponin I < 0.012 ng/mL (0.01-0.034)
[2023-07-10 21:00] VITALS: BP 122/64; PULSE 67; RESP 26; TEMP 36.8; O2SAT 96
[2023-07-10] MEDS: levoFLOXacin 250 MG TABLET 750 MG PO (21:11)
== END 2023-07-10 21:23 | disposition home or self-care (01) ==
PROVIDERS: Emergency Provider Emergency Medicine; Family Provider Family Medicine; PCP Family Medicine
DX: J18.9 Pneumonia, unspecified organism (principal); R07.9 Chest pain, unspecified
CPT/HCPCS: 36415; 71045; 74177; 80053; 82550; 83605; 83690; 83880; 84484; 85025; 93005; 96361; 96374; 99284; J1885; Q9967

== ENCOUNTER 2023-09-17 12:48 | Emergency (ER) | payer OTHER, SELFPAY ==
[2023-09-17 13:04] VITALS: BP 153/103; PULSE 89; RESP 17; TEMP 36.6; O2SAT 99; BMI 43.9
--- NOTE | 2023-09-17 13:09 | DI.RAD.S_ITS ---
PROCEDURE: XR SHOULDER LT MIN 2V INDICATIONS: fall TECHNIQUE: 3 views of the shoulder were acquired. COMPARISON: , , SHOULDER MINIMUM 2 VIEW LEFT, 11/28/2016, 14:26. FINDINGS: Bones: No fractures or dislocations. No suspicious bony lesions. Visualized ribs appear intact. Soft tissues: No suspicious soft tissue calcifications. IMPRESSION: No acute fracture. No osseous lesion. If symptoms and/or clinical suspicion for pathology persist, further assessment with repeat, or advanced imaging (e.g., CT, MRI, or bone scan) may be helpful for further assessment. Dictated by: Tatyana Petit M.D. on 09/17/2023 at 13:50 Approved by: Tatyana Petit M.D. on 09/17/2023 at 13:50
--- NOTE | 2023-09-17 13:10 | DI.RAD.S_ITS ---
PROCEDURE: XR KNEE LT 3V INDICATIONS: fall TECHNIQUE: 3 views of the knee were acquired. COMPARISON: [facility], CR, XR KNEE RT 3V, 03/22/2021, 0:11. FINDINGS: Bones: No fractures or dislocations. No suspicious bony lesions. Soft tissues: No joint effusion. No suspicious soft tissue calcifications. IMPRESSION: No acute fracture. No osseous lesion. If symptoms and/or clinical suspicion for pathology persist, further assessment with repeat, or advanced imaging (e.g., CT, MRI, or bone scan) may be helpful for further assessment. Dictated by: Tatyana Petit M.D. on 09/17/2023 at 13:49 Approved by: Taytana Petit M.D. on 09/17/2023 at 13:50
--- NOTE | 2023-09-17 15:36 | ED.FALL ---
HPI - Fall <Mary Kate Kimball PA-C - Last Filed: 09/17/23 18:07> General Chief Complaint: Fall Stated Complaint: glf, knee and shoulder pain Time Seen by Provider: 09/17/23 14:44 Source: patient Mode of arrival: Ambulatory History of Present Illness HPI Narrative: 57-year-old female presenting with 3 day history of left knee and left shoulder pain after sustaining a fall while climbing up some stairs. Patient reports she fell directly onto knee and left shoulder and has had continued pain since fall. Patient takes [place] for chronic neck and back pain, and has been taking without improvement. Reports decreased range of motion of left upper extremity secondary to pain. Complains of initial mild numbness of left upper extremity since improved. Pain in left knee is diffuse with swelling. Denies left calf tenderness or distal lower extremity swelling. Patient is currently ambulatory. Related Data Previous Rx's Medication Instructions Recorded Disabled Parking Permit #1 ea 08/22/21 Depends #1 ea 09/27/21 omeprazole 40 mg capsule,delayed 40 mg PO DAILY #90 caps 02/16/22 release fluticasone propionate 50 1 spray intranasal SEE 06/20/22 mcg/actuation nasal INSTRUCTIONS ##16 spray,suspension lidocaine 5 % topical patch 1 patch topical Q12H PRN pain #15 06/20/22 (Lidoderm) ea lamotrigine 200 mg tablet 200 mg PO BEDTIME #90 tabs 09/13/22 quetiapine 50 mg tablet See Rx Instructions .Route 12/13/22 .COMPLEX insomnia #360 tabs gabapentin 600 mg tablet 1,200 mg (2 x 600 mg) PO TID #540 06/03/23 tabs methocarbamol 500 mg tablet 500 mg PO TID PRN muscle spasm #90 09/04/23 tabs oxycodone-acetaminophen 5 mg-325 1 tab .Route QID #120 tabs 09/11/23 mg tablet clonazepam 1 mg tablet 1 mg PO TID PRN severe anxiety #70 09/16/23 tabs duloxetine 60 mg capsule,delayed 60 mg PO BID #180 caps 09/16/23 release (Cymbalta) prazosin 2 mg capsule See Rx Instructions .Route 09/16/23 .COMPLEX #360 caps Allergies Allergy/AdvReac Type Severity Reaction Status Date / Time Penicillins Allergy Severe THROAT Verified 09/17/23 13:08 SWELLING Review of Systems <Mary Kate Kimball PA-C - Last Filed: 09/17/23 18:07> Constitutional Constitutional: Denies chills, Denies fatigue, Denies fever(s), Denies frequent falls, Denies headache(s), Denies lethargy and Denies weakness Eyes Eyes: Denies change in vision, Denies eye discharge, Denies irritation and Denies loss of vision ENT Ears, Nose, Mouth, and Throat: Denies change in voice, Denies dizziness, Denies headache(s), Denies neck pain, Denies sore throat and Denies throat swelling Cardiovascular Cardiovascular: Denies chest pain, Denies irregular heart rhythm, Denies lightheadedness, Denies palpitations, Denies dyspnea, Denies dyspnea on exertion and Denies orthopnea Respiratory Respiratory: Denies cough, Denies dyspnea, Denies dyspnea on exertion and Denies wheezing Gastrointestinal Gastrointestinal: Denies abdominal pain, Denies change in bowel habits, Denies diarrhea, Denies nausea and Denies vomiting Musculoskeletal Musculoskeletal: Reports abnormal gait (Antalgic gait due to pain), Denies neck pain and Denies numbness Integumentary/Breasts Skin/Breast: Denies pruritus, Denies erythema, Denies rash and Denies wounds Neurologic Neurologic: Reports abnormal gait (Antalgic gait due to pain), Denies behavioral changes, Denies confusion, Denies dizziness, Denies frequent falls, Denies headache(s), Denies localized weakness, Denies loss of vision, Denies numbness and Denies weakness Psychiatric Psychiatric: Denies anxiety, Denies behavioral changes, Denies confusion, Denies depression, Denies homicidal ideation and Denies suicidal ideation Endocrine Endocrine: Denies fatigue, Denies flushing and Denies palpitations Hematologic/Lymphatic Hematologic/Lymphatic: Denies easy bruising Allergic/Immunologic Allergic/Immunologic: Denies urticaria, Denies throat swelling and Denies wheezing Patient History <Mary Kate Kimball PA-C - Last Filed: 09/17/23 18:07> Medical History Acute bilateral knee pain Pain management contract agreement Strain of gluteus medius of left lower extremity Recurrent sinusitis Lumbar spine pain Foot pain Cervical spine disease Bipolar disorder Cyst of breast, diffuse fibrocystic Peptic ulcer disease Gastric ulcer Adenoma of left adrenal gland (2011) Cervical polyp (08/2012) Hearing loss CTS (carpal tunnel syndrome) Chronic back pain Fibromyalgia ADHD (attention deficit hyperactivity disorder) Anxiety Depression PTSD (post-traumatic stress disorder) Asthma Colon polyps Acute viral sinusitis Kidney infection Abscess of skin Shingles Surgical History History of lumbar surgery (~1989) History of endometrial ablation (10/2012) History of colonoscopy (07/2013) History of esophagogastroduodenoscopy (EGD) (10/26/13) History of esophagogastroduodenoscopy (EGD) (03/2013) History of cystoscopy (07/2013) Social History household members: spouse Smoking Status: Former smoker Tobacco: How many years used: 2 alcohol intake: current (2 drinks per month ) substance use type: does not use Smoking Status: Former smoker tobacco type: cigarettes alcohol intake frequency: 0-2 drinks per day Substance Use Type: does not use Exam <Mary Kate Kimball PA-C - Last Filed: 09/17/23 18:07> Initial Vital Signs Initial Vital Signs: Vital Signs Temperature 98 F 09/17/23 13:04 Pulse Rate 89 09/17/23 13:04 Respiratory Rate 17 09/17/23 13:04 Blood Pressure 153/103 H 09/17/23 13:04 Pulse Oximetry 99 09/17/23 13:04 Oxygen Delivery Method Room Air 09/17/23 13:04 PHYSICAL EXAM: GEN: Cooperative healthy appearing. NAD. HEENMT: Head: ?Normocephalic, atraumatic Ears: ?Hearing grossly normal bilaterally. Eyes: ?Normal appearance. non-edematous, no icterus bilaterally. Nose: ?External nose normal. Face: ?Face symmetric. Mouth: ?Oral mucosae normal. Throat: ?Posterior oropharynx normal. NECK: Normal visual inspection. No nuchal rigidity. ABD: ?Nondistended. LUNGS: ?No audible wheezes heard. CARD: Extremities non-edematous. MSK: Left shoulder tenderness to palpation with decreased range of motion secondary to pain. No swelling nor ecchymosis. Left knee with tenderness to palpation over tibial tuberosity and diffuse swelling of knee with associated ecchymosis. No crepitus. Joint line tenderness over lateral meniscus. No distal lower extremity swelling, erythema nor tenderness. NEURO: Alert and oriented x 3. No focal deficits. Moving all extremities with appropriate strength. Bilateral upper and lower extremity sensation symmetrical and intact. <Erin Novak DO - Last Filed: 09/20/23 07:37> Initial Vital Signs Initial Vital Signs: Vital Signs Temperature 98 F 09/17/23 13:04 Pulse Rate 89 09/17/23 13:04 Respiratory Rate 17 09/17/23 13:04 Blood Pressure 153/103 H 09/17/23 13:04 Pulse Oximetry 99 09/17/23 13:04 Oxygen Delivery Method Room Air 09/17/23 13:04 Course <Mary Kate Kimball PA-C - Last Filed: 09/17/23 18:07> Orders Ordered: ED Orders 09/17/23 13:09 XR shoulder LT min 2V Stat 09/17/23 13:10 XR knee LT 3V Stat Vital Signs Vital signs: Vital Signs - 8 hr 09/17/23 13:04 09/17/23 16:17 Temperature 98 F Pulse Rate 89 99 H Respiratory Rate 17 18 Blood Pressure 153/103 H Pulse Oximetry 99 97 Oxygen Delivery Method Room Air Room Air <DO Olga Lidia Shah Last Filed: 09/20/23 07:37> Orders Ordered: ED Orders 09/17/23 13:09 XR shoulder LT min 2V Stat 09/17/23 13:10 XR knee LT 3V Stat Vital Signs Vital signs: Vital Signs - 8 hr 09/17/23 13:04 09/17/23 16:17 Temperature 98 F Pulse Rate 89 99 H Respiratory Rate 17 18 Blood Pressure 153/103 H Pulse Oximetry 99 97 Oxygen Delivery Method Room Air Room Air MDM - Fall <Mary Kate Kimball PA-C - Last Filed: 09/17/23 18:07> MDM Narrative Medical decision making narrative: 57-year-old female with chronic pain syndrome, PTSD presenting with 3 day history of left knee and left shoulder pain after sustaining a fall while climbing up some stairs. Concern for differential diagnosis of left upper extremity and knee fracture versus strain versus ligamentous injury. Will obtain left shoulder and left knee x-ray for further evaluation. Diagnostics completed. Left knee x-ray and left shoulder x-ray without fracture or acute injury noted. Patient discharged home with recommendation of ice and heat application as needed, as well as, ibuprofen for pain. Patient does take Percocet for chronic neck and back pain which she may continue as prescribed by her prescribing provider. All results reviewed with patient, plan of care discussed and ER precautions given. Patient states understanding of this and is in agreement with plan. Medical records reviewed. Discharge Plan Departure Patient Disposition: Home Clinical Impression: Acute pain of left knee, Acute pain of left shoulder due to trauma Activity Restrictions/Additional Instructions: DISCHARGE INSTRUCTIONS: You were evaluated today in the Emergency Department for left shoulder and left knee pain with the finding of left shoulder and left knee sprain due to fall. ?Diagnostics completed include left shoulder x-ray which was negative for fracture. An x-ray of the left knee was also completed which was without any concerning findings or fracture. ?You may continue your at-home [place] for pain and take [id number] ibuprofen as needed. ?Please follow-up with your PCP. ?If any concerning signs or symptoms, such as left calf tenderness/swelling/erythema, decreased function of left leg or upper extremity to include numbness or weakness or any other concerning finding, please return to the ED. Thank you for allowing us to be involved in your care. Feel better soon! Prescriptions: No Action prazosin 2 mg capsule See Rx Instructions .ROUTE .COMPLEX Qty: 360 3RF Dose Instruction: TAKE 3 CAPSULES BY MOUTH BEDTIME FOR NIGHTMARES Rx Instructions: TAKE 4 CAPSULES BY MOUTH BEDTIME FOR NIGHTMARES duloxetine [Cymbalta] 60 mg capsule,delayed release(DR/EC) 60 mg PO BID Qty: 180 3RF clonazepam 1 mg tablet 1 mg PO TID PRN (Reason: severe anxiety) Qty: 70 0RF lamotrigine 200 mg tablet 200 mg PO BEDTIME Qty: 90 3RF (DME) Disabled Parking Permit Qty: 1 0RF Dose Instruction: As directed Rx Instructions: Patient Unable to walk more then 200 feet without stopping to rest. (DME) Depends See Rx Instructions .Route .MEDSUPPLY Qty: 1 6RF Rx Instructions: As directed omeprazole 40 mg capsule,delayed release(DR/EC) 40 mg PO DAILY Qty: 90 1RF quetiapine 50 mg tablet See Rx Instructions .ROUTE .COMPLEX Qty: 360 3RF Dose Instruction: PO ONCE HS; Rx Instructions: Take 1 tab PO QAM (50mg) and 4 tabs PO QHS (200mg) gabapentin 600 mg tablet 1,200 mg PO TID Qty: 540 1RF methocarbamol 500 mg tablet 500 mg PO TID PRN (Reason: muscle spasm) Qty: 90 1RF Rx Instructions: transition from SOMA oxycodone-acetaminophen 5-325 mg tablet 1 tab .ROUTE QID Qty: 120 0RF Rx Instructions: 1 tab four times daily; must last 30 days. Pt is on too many sedating meds to continue previous rx fluticasone propionate 50 mcg/actuation spray,suspension 1 spray Intranasal SEE INSTRUCTIONS Qty: 16 6RF Patient Comments: not sure if still using. need to verify. lidocaine [Lidoderm] 5 % adhesive patch,medicated 1 patch Topical Q12H PRN (Reason: pain) Qty: 15 11RF Referrals: Neli Seymour DO [Primary Care Provider] - Stand Alone Forms: Patient Portal/API ED Sign-out <Erin Novak DO - Last Filed: 09/20/23 07:37> Cosign ED Attending Kevan Attestation: I was immediately available in the department for consultation.
[2023-09-17 16:17] VITALS: PULSE 99; RESP 18; O2SAT 97
== END 2023-09-17 16:19 | disposition home or self-care (01) ==
PROVIDERS: Emergency Provider Physician Assistant Surgical; Family Provider Family Medicine; PCP Family Medicine
DX: M25.562 Pain in left knee (principal); M25.512 Pain in left shoulder; W18.30XA Fall on same level, unspecified, initial encounter
CPT/HCPCS: 73030; 73562; 99283

== ENCOUNTER 2023-11-14 13:02 | Day surgery (SDC) | payer OTHER, SELFPAY ==
[2023-11-14] MEDS: FLEETS ENEMA 1 EACH PR (13:21)
[2023-11-14 13:34] VITALS: BP 131/75; PULSE 80; RESP 20; TEMP 36.1; O2SAT 96
[2023-11-14] MEDS: LACTATED RINGERS 1,000 ML 42 ML IV (13:41)
--- NOTE | 2023-11-14 13:46 | PM.HP.1 ---
History of Present Illness History of Present Illness Date Patient Seen: 11/14/23 Time Patient Seen: 13:46 [place] [facility] [place]ative: Lizeth is a 58-year-old woman who is here for colonoscopy. Her last 1 was about 10 years ago. She believes she had polyps removed. She has a family history of colon cancer in her father and brother who had colon cancer in her 50s and 60s respectively. [facility] Medical History Acute bilateral knee pain Pain management contract agreement Strain of gluteus medius of left lower extremity Recurrent sinusitis Lumbar spine pain Foot pain Cervical spine disease Bipolar disorder Cyst of breast, diffuse fibrocystic Peptic ulcer disease Gastric ulcer Adenoma of left adrenal gland (2011) Cervical polyp (08/2012) Hearing loss CTS (carpal tunnel syndrome) Chronic back pain Fibromyalgia ADHD (attention deficit hyperactivity disorder) Anxiety Depression PTSD (post-traumatic stress disorder) Asthma Colon polyps Acute viral sinusitis Kidney infection Abscess of skin Shingles Surgical History History of lumbar surgery (~1989) History of endometrial ablation (10/2012) History of colonoscopy (07/2013) History of esophagogastroduodenoscopy (EGD) (10/26/13) History of esophagogastroduodenoscopy (EGD) (03/2013) History of cystoscopy (07/2013) Social History household members: spouse Smoking Status: Former smoker Tobacco: How many years used: 2 alcohol intake: current substance use type: does not use Meds Home Medications and Allergies Home Medications Medication Instructions Recorded Confirmed Type Disabled Parking Permit #1 ea 08/22/21 10/28/23 Rx Depends #1 ea 09/27/21 10/28/23 Rx omeprazole 40 mg capsule,delayed 40 mg PO DAILY #90 caps 02/16/22 11/14/23 Rx release lamotrigine 200 mg tablet 200 mg PO BEDTIME #90 tabs 09/13/22 11/14/23 Rx gabapentin 600 mg tablet 1,200 mg (2 x 600 mg) PO TID #540 06/03/23 11/14/23 Rx tabs methocarbamol 500 mg tablet 500 mg PO TID PRN muscle spasm #90 01/03/24 03/14/24 Rx tabs duloxetine 60 mg capsule,delayed 60 mg PO BID #180 caps 09/16/23 11/14/23 Rx release (Cymbalta) prazosin 2 mg capsule See Rx Instructions .Route 09/16/23 11/14/23 Rx .COMPLEX #360 caps oxycodone-acetaminophen 5 mg-325 1 tab .Route QID #120 tabs 10/28/23 10/28/23 Rx mg tablet quetiapine 50 mg tablet See Rx Instructions .Route 10/30/23 11/14/23 Rx .COMPLEX insomnia #360 tabs clonazepam 1 mg tablet 1 mg PO TID PRN severe anxiety #70 11/04/23 11/14/23 Rx tabs Allergies Allergy/AdvReac Type Severity Reaction Status Date / Time Penicillins Allergy Severe THROAT Verified 11/14/23 13:22 SWELLING Exam Vital Signs (past 8 hours): - 11/14/23 13:34 Temperature 97.0 F L Pulse Rate 80 Respiratory Rate 20 Blood Pressure 131/75 Pulse Oximetry 96 Oxygen Delivery Method Room Air Oxygen Delivery Method Room Air Const General: No acute distress Resp Effort & Inspection: normal respiratory effort Assessment & Plan Assessment and plan (1) Family history of colon cancer: Status: Acute Plan We reviewed the risks and benefits of colonoscopy for a family history of colon cancer and she would like to proceed.
--- NOTE | 2023-11-14 14:10 | PM.OP.COLON ---
Operative Date/Time/Diagnoses Date of procedure: 11/14/23 Time of procedure: 14:10 Pre-op diagnosis: Family history of colon cancer Post-op diagnosis: same Procedure & Clinicians Study performed: Colonoscopy (aborted) Same procedure as scheduled: Yes Surgeon: Charan Henderson Procedure Notes Procedure in detail: Surgeon: Charan Henderson MD Anesthesia: Yolanda Callahan CRNA Procedure: The patient was brought to the endoscopy suite, placed in left lateral decubitus position. The patient was connected to monitoring devices. A time-out was performed. Sedation was administered. Once the patient was adequately sedated, a digital rectal exam was performed and was normal. The scope was then inserted and advanced to the upper rectum. Prep was inadequate to safely complete the procedure and so it was aborted. The scope was straightened and removed. The patient was awakened and brought to recovery. Scope withdrawal time: Not applicable Sedation time: 2 minutes EBL: 0 Findings: Inadequate prep The patient will be offered an opportunity to repeat the procedure. Post-procedure Plan for aftercare: Repeat prep with an extra day of clear liquid diet. Disposition: PACU
[2023-11-14 14:20] VITALS: BP 102/68; PULSE 74; RESP 16; TEMP 36.2; O2SAT 95
[2023-11-14 14:25] VITALS: BP 133/74; PULSE 67; RESP 14; O2SAT 93
[2023-11-14 14:30] VITALS: BP 118/72; PULSE 65; RESP 14; O2SAT 95
[2023-11-14 14:32] VITALS: BP 132/68; PULSE 72; RESP 14; O2SAT 94
== END 2023-11-14 14:50 | disposition home or self-care (01) ==
PROVIDERS: Family Provider Family Medicine; PCP Family Medicine; Referring Provider Surgery; Visit Provider Surgery
PROC: 0DJD8ZZ Inspection of Lower Intestinal Tract, Via Natural or Artificial Opening Endoscopic (ICD-10-PCS; CPT 45378; principal; 2023-11-14 13:45)
DX: Z12.11 Encounter for screening for malignant neoplasm of colon (principal); Z80.0 Family history of malignant neoplasm of digestive organs; Z53.09 Procedure and treatment not carried out because of other contraindication
CPT/HCPCS: G0105; J2704

== ENCOUNTER 2023-12-16 07:19 | Day surgery (SDC) | payer OTHER, SELFPAY ==
--- NOTE | 2023-12-16 | PATH_ITS ---
[facility] Accession Number: [id number] No. of containers..01 Tissue . 01 Material submitted: . colon - ASCENDING POLYP . 01 Diagnosis: ASCENDING COLON, POLYP: Tubular adenoma. MRV 12/20/2023 1525 Local . 01 Electronically signed: . Yolanda Rangel MD, Pathologist NPI- [id number] . 01 Gross description: . ASCENDING POLYP: Received in formalin are 2 fragment(s) of mondragon, soft tissue measuring 0.4 x 0.4 x 0.4 cm to 0.8 x 0.7 x 0.6 cm submitted entirely in 1 cassette(s) /KARAN 12/18/2023 1908 Local . 01 Pathologist provided ICD-10: D12.2 . 01 CPT . 031635 Specimen Comment: A courtesy copy of this report has been sent to [phone] Performed at: 01 [facility] [address] [place] [address], [place], [place] [id number] MD Gigi Szymanski MD Phone: [phone]
--- NOTE | 2023-12-16 07:40 | P.HP_ITS ---
History of Present Illness History of Present Illness Date Patient Seen: 12/16/23 Time Patient Seen: 07:40 Chief complaint: [place] Narrative: Lizeth is a 58 year old woman who is due for a colonoscopy for a family history of colon cancer. She had an attempt at a colonoscopy last month but the prep was incomplete and it was aborted. This time the prep is running clear. [facility] Medical History Acute bilateral knee pain Pain management contract agreement Strain of gluteus medius of left lower extremity Recurrent sinusitis Lumbar spine pain Foot pain Cervical spine disease Bipolar disorder Cyst of breast, diffuse fibrocystic Peptic ulcer disease Gastric ulcer Adenoma of left adrenal gland (2011) Cervical polyp (08/2012) Hearing loss CTS (carpal tunnel syndrome) Chronic back pain Fibromyalgia ADHD (attention deficit hyperactivity disorder) Anxiety Depression PTSD (post-traumatic stress disorder) Asthma Colon polyps Acute viral sinusitis Kidney infection Abscess of skin Shingles Surgical History History of lumbar surgery (~1989) History of endometrial ablation (10/2012) History of colonoscopy (07/2013) History of esophagogastroduodenoscopy (EGD) (10/26/13) History of esophagogastroduodenoscopy (EGD) (03/2013) History of cystoscopy (07/2013) Social History household members: spouse Smoking Status: Former smoker Tobacco: How many years used: 2 alcohol intake: current substance use type: does not use Meds Home Medications and Allergies Home Medications Medication Instructions Recorded Confirmed Type Disabled Parking Permit #1 ea 08/22/21 10/28/23 Rx Depends #1 ea 09/27/21 10/28/23 Rx omeprazole 40 mg capsule,delayed 40 mg PO DAILY #90 caps 02/16/22 12/16/23 Rx release lamotrigine 200 mg tablet 200 mg PO BEDTIME #90 tabs 09/13/22 12/16/23 Rx methocarbamol 500 mg tablet 500 mg PO TID PRN muscle spasm #90 09/04/23 12/16/23 Rx tabs duloxetine 60 mg capsule,delayed 60 mg PO BID #180 caps 09/16/23 12/16/23 Rx release (Cymbalta) prazosin 2 mg capsule See Rx Instructions .Route 09/16/23 12/16/23 Rx .COMPLEX #360 caps quetiapine 50 mg tablet See Rx Instructions .Route 10/30/23 12/16/23 Rx .COMPLEX insomnia #360 tabs oxycodone-acetaminophen 5 mg-325 1 tab .Route QID #120 tabs 11/20/23 12/16/23 Rx mg tablet gabapentin 600 mg tablet 1,200 mg (2 x 600 mg) PO TID #540 11/25/23 12/16/23 Rx tabs clonazepam 1 mg tablet 1 mg PO TID PRN severe anxiety #70 11/28/23 12/16/23 Rx tabs Allergies Allergy/AdvReac Type Severity Reaction Status Date / Time Penicillins Allergy Severe THROAT Verified 12/16/23 07:37 SWELLING Exam Const General: No acute distress Resp Effort & Inspection: normal respiratory effort Assessment & Plan Assessment and plan (1) Family history of colon cancer: Status: Acute Plan We will proceed with a colonoscopy for family history of colon cancer.
[2023-12-16 07:43] VITALS: BP 130/79; PULSE 80; RESP 18; TEMP 36.6; O2SAT 96
[2023-12-16] MEDS: LACTATED RINGERS 1,000 ML 42 ML IV (07:50)
[2023-12-16 08:53] VITALS: BP 93/42; PULSE 76; RESP 16; TEMP 36.1; O2SAT 96
--- NOTE | 2023-12-16 08:53 | PM.OP.COLON ---
Operative Date/Time/Diagnoses Date of procedure: 12/16/23 Time of procedure: 08:53 Pre-op diagnosis: Family history of colon cancer Post-op diagnosis: same Procedure & Clinicians Study performed: Colonoscopy Surgeon: Charan Henderson Procedure Notes Procedure in detail: Surgeon: Charan Henderson MD Anesthesia: Destinee Mcknight CRNA Procedure: The patient was brought to the endoscopy suite, placed in left lateral decubitus position. The patient was connected to monitoring devices. A time-out was performed. Sedation was administered. Once the patient was adequately sedated, a digital rectal exam was performed and was normal. The scope was then inserted and advanced to the cecum where the appendiceal orifice was identified and photographed. The scope was then slowly withdrawn over greater than 6 minutes. The mucosa was thoroughly inspected. There was a 1.2 cm polyp in the ascending colon removed with a cold snare. It was divided with a snare in order to suctioned it through the channel. The scope was retroflexed in the rectum. No other abnormalities were found. The scope was straightened and removed. The patient was awakened and brought to recovery. Scope withdrawal time: 11 minutes Sedation time: 15 minutes EBL: 5 mL Findings: 1.2 cm ascending colon polyp Post-procedure Disposition: PACU
[2023-12-16 08:58] VITALS: BP 109/62; PULSE 77; RESP 16; O2SAT 96
[2023-12-16 09:03] VITALS: BP 120/66; PULSE 69; RESP 14; TEMP 36.2; O2SAT 94
[2023-12-16 09:08] VITALS: BP 133/73; PULSE 64; RESP 16; O2SAT 97
== END 2023-12-16 09:15 | disposition home or self-care (01) ==
PROVIDERS: Family Provider Family Medicine; PCP Family Medicine; Referring Provider Surgery; Visit Provider Surgery
PROC: 0DJD8ZZ Inspection of Lower Intestinal Tract, Via Natural or Artificial Opening Endoscopic (ICD-10-PCS; CPT 45378; principal; 2023-12-16 08:15)
DX: Z12.11 Encounter for screening for malignant neoplasm of colon (principal); Z80.0 Family history of malignant neoplasm of digestive organs; D12.2 Benign neoplasm of ascending colon
CPT/HCPCS: 45385; J2704

== ENCOUNTER 2024-01-10 13:34 | Outpatient (RCR) | payer OTHER, SELFPAY ==
--- NOTE | 2024-01-10 16:10 | PT.OIE ---
Current Diagnoses Pain in right knee (01/10/24) Pain in left knee (01/10/24) Other spondylosis with radiculopathy, lumbosacral region (01/10/24) Past Medical History (Last Reviewed 07/10/23 @ 20:00 by Stephany Hernandez DO) Abscess of skin Acute bilateral knee pain Acute viral sinusitis Adenoma of left adrenal gland (2011) ADHD (attention deficit hyperactivity disorder) Anxiety Asthma Bipolar disorder Cervical polyp (08/2012) Cervical spine disease Chronic back pain Colon polyps CTS (carpal tunnel syndrome) Cyst of breast, diffuse fibrocystic Depression Fibromyalgia Foot pain Gastric ulcer Hearing loss Kidney infection Lumbar spine pain Pain management contract agreement Peptic ulcer disease PTSD (post-traumatic stress disorder) Recurrent sinusitis Shingles Strain of gluteus medius of left lower extremity Past Surgical History (Last Reviewed 07/10/23 @ 20:00 by Stephany Hernandez DO) History of colonoscopy (07/2013) History of cystoscopy (07/2013) History of endometrial ablation (10/2012) History of esophagogastroduodenoscopy (EGD) (03/2013) History of esophagogastroduodenoscopy (EGD) (10/26/13) History of lumbar surgery (~1989) Visit Care Team Role Provider Type Manuela Redd DO Family Provider Physician Specialty: Family Practice Address: [address] [place] [address], [address], [facility] Email: [email or web address] Jey Zimmer DO Attending Provider Physician Primary Care Provider Referring Provider Specialty: [facility] Address: [address] [place] [address], [facility] Email: [email or web address] Physical Therapy Initial Evaluation PT-OP-A Visit Information Start: 01/10/24 14:20 Freq: Status: Active Protocol: Document 01/10/24 13:45 DCW (Rec: 01/10/24 16:10 DCW [id number]) Out-Patient Physical Therapy Visit Information Visit Information Visit Type Initial Evaluation Visit Start Time 13:45 Visit Stop Time 14:20 Visit Number 1 Number of [facility] Visits 0 Evaluation Information Evaluation Date 01/10/24 PT-OP-B Current Condition Start: 01/10/24 14:20 Freq: Status: Active Protocol: Document 01/10/24 13:45 DCW (Rec: 01/10/24 16:10 DCW [id number]) Current Condition History of Current Condition Onset Date Five month history Current Complaints Left knee pain, knee buckling, falls History of Current Condition Pt is a 58 year old female presenting with a five month history of ongoing left knee pain. Pt reports she initially injured her knee after falling off her front steps, landing hard on her left knee and left shoulder. Notes it will calm down if she is able to spend an extended time off her feet, but almost instantly swells and becomes very painful with any standing or moving arouns. Struggles with stairs and pivoting. Notes her knee melchor frequently, has led to multiple falls. Recently hit her face and broke two teeth after her knee gave out. Experiences near-constant popping in clicking from her knee. Will occasionally feel like it locks in place. PT-OP-C Subjective Start: 01/10/24 14:20 Freq: Status: Active Protocol: Document 01/10/24 13:45 DCW (Rec: 01/10/24 16:10 DCW [id number]) OP-PT Subjective Patient Comments Patient Comments I just want it to not hurt so much anymore. Patient Reported Progress Same Patient Questionnaires Lower Extremity Functional Scale LEFS Score 19/80 = 23.75% LEFS Impairment 60 to 79% Impaired (Score 17- 31) PT-OP-F Manual Assessment Start: 01/10/24 14:20 Freq: Status: Active Protocol: Document 01/10/24 13:45 DCW (Rec: 01/10/24 16:10 DCW [id number]) Manual Assessments Joint Mobility Assessment Joint Mobility Assessment Tenderness to palpation 4/4: Palpation not allowed anteriomedial and anteriolateral joint line. PT-OP-K Range of Motion Start: 01/10/24 14:20 Freq: Status: Active Protocol: Document 01/10/24 13:45 DCW (Rec: 01/10/24 16:10 DCW [id number]) Knee Goniometric Range of Motion Knee Right Knee ROM WFL Yes Patient Position Supine Flexion Active (degrees) 140 Extension Active (degrees) 0 Left Knee ROM WFL No Patient Position Supine Flexion Active (degrees) 107 Extension Active (degrees) 7 PT-OP-L Special Tests Start: 01/10/24 14:20 Freq: Status: Active Protocol: Document 01/10/24 13:45 DCW (Rec: 01/10/24 16:10 DCW [id number]) Special Tests Knee Special Tests Varus- 25 Degrees Test Results Severe pain response L knee Valgus- 25 Degrees Test Results Severe pain response L knee Posterior Draw Test Results Negative Patella Tap Test Results Positive L knee for effusion Iona Test Test Results Severe pain response L knee Apley's Compression Test Results Severe pain response L knee Anterior Draw Test Results Negative PT-OP-M Strength Start: 01/10/24 14:20 Freq: Status: Active Protocol: Document 01/10/24 13:45 DCW (Rec: 01/10/24 16:10 DCW [id number]) Knee Strength Knee Manual Muscle Testing Left Flexion (S2) 3+ Fair+ Extension (L3) 4- Good- Comments Pain limits resistnace in both flexion and extension PT-OP-T Assessment and Plan Start: 01/10/24 14:20 Freq: Status: Active Protocol: Document 01/10/24 13:45 DCW (Rec: 01/10/24 14:30 DCW [id number]) Physical Therapy Assessment Rehab Potential Rehabilitation Potential Fair Evaluation Complexity Number of Personal Factors/Comorbidities 3 or More Number of Body Systems Impaired 4 or More Clinical Presentation at Evaluation Unstable Impairments Impairments Activity Tolerance,Balance, Edema,Functional Activities, Functional Mobility,Gait,Pain, ROM,Soft Tissue Mobility, Strength Goals Two Impairment Pt struggles with ascending/ descending stairs secondary to L leg weakness Seafood Farmer Goal (LTG) Pt to increase left knee flexion and extension MMT to 4 /5 in order to improve abillity to safely ascend/ descend stairs. LTG Duration 03/11/24 One Impairment Pt experiencing frequent falls secondary to left knee buckling Group Home Goal (LTG) Pt to report no instances of falling over the course to one full month due to appropriate use of assistive devices LTG Duration 03/11/24 Assessment Summary Assessment Pt presents to skilled therapy with signs and symptoms strongly suggestive of potential left meniscal derangement. Subjective complaints of knee buckling has resulted in multiple falls , including hitting her face on the floor hard enough to break two teeth. Pt also notes knee locks during movement, and ascending/descending stairs is very painful. Pt admits she has to go home and cry if she spends any time standing/walking through the store. Notes instant pain with pivoting on her left leg. Positive Iona testing and very painful palpation along anterior joint line all suggestive of meniscus involvement. Pt extremely limited with all activities due to falls and pain, unable to tolerate even mild palpation of her left knee. Would strongly recommend referral for advanced axial imaging and referral to ortho prior to resumption of PT. Did speak with pt regarding use of assistive devices due to falls, pt in agreement to use her walker and/or trekking pole more regularly. Physical Therapy Plan Frequency and Duration Frequency of Treatment 1x/Week Plan of Care Start Date 01/10/24 Plan of Care End Date 03/11/24 Therapeutic Interventions Therapeutic Interventions Gait Training,Home Exercise Program,Joint Mobilizations, Manual Therapy,Neuromuscular Re-education,Patient/Caregiver Education,Self-Care/Home Management,Soft Tissue Mobilization,Taping, Therapeutic Activities, Therapeutic Exercises Modalities Cold Pack/Ice Massage,Electric Stimulation,Hot Packs, Ultrasound Other Referrals/Consults Referrals/Consults Recommended Recomment axial imaging, referral to Ortho Next Visit Focus/Plan Next Note Type Treatment Note Next Visit Plan If pt able to tolerate PT, work on AD use, gait training, LE strengthening
--- NOTE | 2024-01-10 16:10 | PT.OPPOC ---
Physical, Occupational & Speech Therapy At [facility] Current Diagnoses Pain in right knee (01/10/24) Pain in left knee (01/10/24) Other spondylosis with radiculopathy, lumbosacral region (01/10/24) Visit Care Team Role Provider Type Manuela Redd DO Family Provider Physician Specialty: Family Practice Address: [address] [place] [address], [address], [place], [address] Email: [email or web address] Jey Zimmer DO Attending Provider Physician Primary Care Provider Referring Provider Specialty: [facility] Address: [address] [place] [address], [address] Email: [email or web address] Plan Of Care PT-OP-T Assessment and Plan Start: 01/10/24 14:20 Freq: Status: Active Protocol: Document 01/10/24 13:45 DCW (Rec: 01/10/24 14:30 DCW [id number]) Physical Therapy Assessment Rehab Potential Rehabilitation Potential Fair Evaluation Complexity Number of Personal Factors/Comorbidities 3 or More Number of Body Systems Impaired 4 or More Clinical Presentation at Evaluation Unstable Impairments Impairments Activity Tolerance,Balance, Edema,Functional Activities, Functional Mobility,Gait,Pain, ROM,Soft Tissue Mobility, Strength Goals Two Impairment Pt struggles with ascending/ descending stairs secondary to L leg weakness Boat Camp Operator Goal (LTG) Pt to increase left knee flexion and extension MMT to 4 /5 in order to improve abillity to safely ascend/ descend stairs. LTG Duration 03/11/24 One Impairment Pt experiencing frequent falls secondary to left knee buckling Boat Camp Operator Goal (LTG) Pt to report no instances of falling over the course to one full month due to appropriate use of assistive devices LTG Duration 03/11/24 Assessment Summary Assessment Pt presents to skilled therapy with signs and symptoms strongly suggestive of potential left meniscal derangement. Subjective complaints of knee buckling has resulted in multiple falls , including hitting her face on the floor hard enough to break two teeth. Pt also notes knee locks during movement, and ascending/descending stairs is very painful. Pt admits she has to go home and cry if she spends any time standing/walking through the store. Notes instant pain with pivoting on her left leg. Positive Iona testing and very painful palpation along anterior joint line all suggestive of meniscus involvement. Pt extremely limited with all activities due to falls and pain, unable to tolerate even mild palpation of her left knee. Would strongly recommend referral for advanced axial imaging and referral to ortho prior to resumption of PT. Did speak with pt regarding use of assistive devices due to falls, pt in agreement to use her walker and/or trekking pole more regularly. Physical Therapy Plan Frequency and Duration Frequency of Treatment 1x/Week Plan of Care Start Date 01/10/24 Plan of Care End Date 03/11/24 Therapeutic Interventions Therapeutic Interventions Gait Training,Home Exercise Program,Joint Mobilizations, Manual Therapy,Neuromuscular Re-education,Patient/Caregiver Education,Self-Care/Home Management,Soft Tissue Mobilization,Taping, Therapeutic Activities, Therapeutic Exercises Modalities Cold Pack/Ice Massage,Electric Stimulation,Hot Packs, Ultrasound Other Referrals/Consults Referrals/Consults Recommended Recomment axial imaging, referral to Ortho Next Visit Focus/Plan Next Note Type Treatment Note Next Visit Plan If pt able to tolerate PT, work on AD use, gait training, LE strengthening Plan of Care Dates Plan of Care Start Date 01/10/24 Plan of Care End Date 03/11/24 Electronically Signed by: Juan Cheema, PT 01/10/24 [id number] If you are in agreement with this Plan of Care, please return a signed and dated copy. I have reviewed this Plan of Care and certify that the skilled therapy services above are required to meet the patient?s needs. Physician Signature Date Printed Name and Credentials Clinical Instructor Signature Printed Name and Credentials
--- NOTE | 2024-06-16 12:04 | PT.OPDS ---
Current Diagnoses Pain in right knee (01/10/24) Pain in left knee (01/10/24) Other spondylosis with radiculopathy, lumbosacral region (01/10/24) Visit Care Team Role Provider Type Manuela Redd DO Family Provider Physician Specialty: [facility] Practice Address: [address] [place] [address], [address], [address] Email: [email or web address] Jey Zimmer DO Attending Provider Physician Primary Care Provider Referring Provider Specialty: [facility] Address: [address] [place] [address], [address] Email: [email or web address] Visit Number Visit Number 1 Discharge Summary PT-OP-B Current Condition Start: 01/10/24 14:20 Freq: Status: Active Protocol: Document 01/10/24 13:45 DCW (Rec: 01/10/24 16:10 DCW [id number]) Current Condition History of Current Condition Onset Date Five month history Current Complaints Left knee pain, knee buckling, falls History of Current Condition Pt is a 58 year old female presenting with a five month history of ongoing left knee pain. Pt reports she initially injured her knee after falling off her front steps, landing hard on her left knee and left shoulder. Notes it will calm down if she is able to spend an extended time off her feet, but almost instantly swells and becomes very painful with any standing or moving arouns. Struggles with stairs and pivoting. Notes her knee melchor frequently, has led to multiple falls. Recently hit her face and broke two teeth after her knee gave out. Experiences near-constant popping in clicking from her knee. Will occasionally feel like it locks in place. PT-OP-C Subjective Start: 01/10/24 14:20 Freq: Status: Active Protocol: Document 01/10/24 13:45 DCW (Rec: 01/10/24 16:10 DCW [id number]) OP-PT Subjective Patient Comments Patient Comments I just want it to not hurt so much anymore. Patient Reported Progress Same Patient Questionnaires Lower Extremity Functional Scale LEFS Score 19/80 = 23.75% LEFS Impairment 60 to 79% Impaired (Score 17- 31) PT-OP-F Manual Assessment Start: 01/10/24 14:20 Freq: Status: Active Protocol: Document 01/10/24 13:45 DCW (Rec: 01/10/24 16:10 DCW [id number]) Manual Assessments Joint Mobility Assessment Joint Mobility Assessment Tenderness to palpation 4/4: Palpation not allowed anteriomedial and anteriolateral joint line. PT-OP-K Range of Motion Start: 01/10/24 14:20 Freq: Status: Active Protocol: Document 01/10/24 13:45 DCW (Rec: 01/10/24 16:10 DCW [id number]) Knee Goniometric Range of Motion Knee Right Knee ROM WFL Yes Patient Position Supine Flexion Active (degrees) 140 Extension Active (degrees) 0 Left Knee ROM WFL No Patient Position Supine Flexion Active (degrees) 107 Extension Active (degrees) 7 PT-OP-L Special Tests Start: 01/10/24 14:20 Freq: Status: Active Protocol: Document 01/10/24 13:45 DCW (Rec: 01/10/24 16:10 DCW [id number]) Special Tests Knee Special Tests Varus- 25 Degrees Test Results Severe pain response L knee Valgus- 25 Degrees Test Results Severe pain response L knee Posterior Draw Test Results Negative Patella Tap Test Results Positive L knee for effusion Iona Test Test Results Severe pain response L knee Apley's Compression Test Results Severe pain response L knee Anterior Draw Test Results Negative PT-OP-M Strength Start: 01/10/24 14:20 Freq: Status: Active Protocol: Document 01/10/24 13:45 DCW (Rec: 01/10/24 16:10 DCW [id number]) Knee Strength Knee Manual Muscle Testing Left Flexion (S2) 3+ Fair+ Extension (L3) 4- Good- Comments Pain limits resistnace in both flexion and extension PT-OP-T Assessment and Plan Start: 01/10/24 14:20 Freq: Status: Active Protocol: Document 06/16/24 12:03 DCW (Rec: 06/16/24 12:04 DCW [id number]) Physical Therapy Assessment Assessment Summary Assessment Pt no longer attending Physical Therapy. Pt has not been seen in more than five months. Will require a new referral in order to return in the future. Pt will be discharged at this time. Physical Therapy Plan Discharge Physical Therapy Discharge Reasons No Longer Attending PT
== END 2024-06-23 08:20 | disposition home or self-care (01) ==
LOC: PHYS 13:34
PROVIDERS: Family Provider Family Medicine; PCP Family Medicine; Referring Provider Family Medicine; Visit Provider Family Medicine
DX: M25.561 Pain in right knee (principal); M25.562 Pain in left knee; M47.27 Other spondylosis with radiculopathy, lumbosacral region
CPT/HCPCS: 97163

== ENCOUNTER 2024-07-19 12:52 | Emergency (ER) | payer OTHER, SELFPAY ==
[2024-07-19 12:56] VITALS: BP 132/64; PULSE 99; RESP 20; TEMP 36.7; O2SAT 96; BMI 388.1
[2024-07-19 13:22] LABS: Strep Grp A by PCR Rapid Positive (Negative)
--- NOTE | 2024-07-19 13:33 | ED.URI ---
HPI - URI/Sore Throat <Kathy Lawrence PA-C - Last Filed: 07/19/24 18:36> General Chief Complaint: Upper Respiratory Symptoms Stated Complaint: fever, sore throat, ear and body px x4 Time Seen by Provider: 07/19/24 13:18 Source: patient Mode of arrival: Wheelchair History of Present Illness HPI Narrative: 58 year old obese woman presents with concern for feeling unwell since Saturday with sore throat fevers ear pain congestion cough and body aches. She states she has been drinking fluids and keeping those down but her throat is very painful. She has been coughing she says she has been coughing up greenish-yellow material and has had a lot of drainage from her sinuses. She says that her symptoms feel pretty much the same today as they have the last 4 days but she woke up this morning and just felt like she did not want to go through another day like this and decided to come into the ER with her for further evaluation. She denies diarrhea nausea, vomiting, abdominal pain, shortness of breath or any other symptoms. Related Data Previous Rx's Medication Instructions Recorded Depends #1 ea 09/27/21 methocarbamol 500 mg tablet 500 mg PO TID PRN muscle spasm #90 09/04/23 tabs duloxetine 60 mg capsule,delayed 60 mg PO BID #180 caps 09/16/23 release (Cymbalta) prazosin 2 mg capsule See Rx Instructions .Route 09/16/23 .COMPLEX #360 caps omeprazole 40 mg capsule,delayed 40 mg PO DAILY #90 caps 12/17/23 release lamotrigine 200 mg tablet 200 mg PO BEDTIME #90 tabs 02/26/24 Disabled Parking Permint #1 ea 05/18/24 clonazepam 1 mg tablet 1 mg PO TID PRN severe anxiety #70 07/15/24 tabs oxycodone-acetaminophen 5 mg-325 1 tab .Route QID #120 tabs 07/17/24 mg tablet gabapentin 600 mg tablet 1,200 mg (2 x 600 mg) PO TID #540 07/21/24 tabs quetiapine 50 mg tablet See Rx Instructions .Route 07/21/24 .COMPLEX insomnia #450 tabs Allergies Allergy/AdvReac Type Severity Reaction Status Date / Time Penicillins Allergy Severe THROAT Verified 07/19/24 12:56 SWELLING Review of Systems <Kathy Lawrence PA-C - Last Filed: 07/19/24 18:36> Review of Systems Narrative: See HPI Patient History <Kathy Lawrence PA-C - Last Filed: 07/19/24 18:36> Medical History Acute bilateral knee pain Pain management contract agreement Strain of gluteus medius of left lower extremity Recurrent sinusitis Lumbar spine pain Foot pain Cervical spine disease Bipolar disorder Cyst of breast, diffuse fibrocystic Peptic ulcer disease Gastric ulcer Adenoma of left adrenal gland (2011) Cervical polyp (08/2012) Hearing loss CTS (carpal tunnel syndrome) Chronic back pain Fibromyalgia ADHD (attention deficit hyperactivity disorder) Anxiety Depression PTSD (post-traumatic stress disorder) Asthma Colon polyps Acute viral sinusitis Kidney infection Abscess of skin Shingles Surgical History History of lumbar surgery (~1989) History of endometrial ablation (10/2012) History of colonoscopy (07/2013) History of esophagogastroduodenoscopy (EGD) (10/26/13) History of esophagogastroduodenoscopy (EGD) (03/2013) History of cystoscopy (07/2013) Social History household members: spouse Smoking Status: Former smoker Tobacco: How many years used: 2 alcohol intake: current substance use type: does not use Smoking Status: Former smoker tobacco type: cigarettes alcohol intake frequency: a few times a month Substance Use Type: does not use Exam <Kathy Lawrence PA-C - Last Filed: 07/19/24 18:36> Narrative Exam Narrative: GENERAL: [58] year old patient appears stated age. Obese patient, in mild distress, fatigued-appearing. HEAD: Atraumatic. Normocephalic. EYES: Pupils equal round and reactive. Extraocular motions intact. No scleral icterus. No injection or drainage. ENT: Nose without bleeding, purulent drainage. Mucous membranes are slightly dry appearing. Throat with mild erythema of the tonsillar pillar, without pronounced tonsillar hypertrophy or exudate. Uvula midline. Bilateral ear canals normal in appearance, bilateral TMs have clear fluid effusion behind them without erythema bulging or retraction. Airway patent. NECK: Trachea midline. Non tender. There is tender lymphadenopathy, tonsillar. CARDIOVASCULAR: Regular rate and rhythm without murmurs, gallops, or rubs. RESPIRATORY: Clear to auscultation. Breath sounds equal bilaterally. No wheezes, rales, or rhonchi. EXTREMITIES: No edema or joint tenderness. NEURO: AOx3. SKIN: No rash or erythema of visible areas Initial Vital Signs Initial Vital Signs: Vital Signs Temperature 98.1 F 07/19/24 12:56 Pulse Rate 99 H 07/19/24 12:56 Respiratory Rate 20 07/19/24 12:56 Blood Pressure 132/64 07/19/24 12:56 Pulse Oximetry 96 07/19/24 12:56 Oxygen Delivery Method Room Air 07/19/24 12:56 <Gustabo Becker DO - Last Filed: 07/29/24 17:56> Initial Vital Signs Initial Vital Signs: Vital Signs Temperature 98.1 F 07/19/24 12:56 Pulse Rate 99 H 07/19/24 12:56 Respiratory Rate 20 07/19/24 12:56 Blood Pressure 132/64 07/19/24 12:56 Pulse Oximetry 96 07/19/24 12:56 Oxygen Delivery Method Room Air 07/19/24 12:56 Course <Kathy Lawrence PA-C - Last Filed: 07/19/24 18:36> Orders Ordered: Discontinued Medications Acetaminophen (Acetaminophen 325 Mg Tablet) 650 mg PO NOW ONE Stop: 07/19/24 13:31 Last Admin: 07/19/24 13:38 Dose: 650 mg Documented By: DENISA Ibuprofen (Ibuprofen 400 Mg Tablet) 400 mg PO NOW ONE Stop: 07/19/24 13:31 Last Admin: 07/19/24 13:38 Dose: 400 mg Documented By: DENISA Vital Signs Vital signs: Vital Signs - 8 hr 07/19/24 12:56 07/19/24 14:55 Temperature 98.1 F Pulse Rate 99 H 84 Respiratory Rate 20 20 Blood Pressure 132/64 108/53 L Pulse Oximetry 96 95 Oxygen Delivery Method Room Air Room Air <DO Olga Lidia Dey Last Filed: 07/29/24 17:56> Orders Ordered: Discontinued Medications Acetaminophen (Acetaminophen 325 Mg Tablet) 650 mg PO NOW ONE Stop: 07/19/24 13:31 Last Admin: 07/19/24 13:38 Dose: 650 mg Documented By: DENISA Ibuprofen (Ibuprofen 400 Mg Tablet) 400 mg PO NOW ONE Stop: 07/19/24 13:31 Last Admin: 07/19/24 13:38 Dose: 400 mg Documented By: DENISA Vital Signs Vital signs: Vital Signs - 8 hr 07/19/24 12:56 07/19/24 14:55 Temperature 98.1 F Pulse Rate 99 H 84 Respiratory Rate 20 20 Blood Pressure 132/64 108/53 L Pulse Oximetry 96 95 Oxygen Delivery Method Room Air Room Air MDM - URI/Sore Throat <Kathy Lawrence PA-C - Last Filed: 07/19/24 18:36> Differential Diagnosis Differential diagnosis: Likely upper respiratory infection, viral infection, pharyngitis and other (strep pharyngitis) Medical Records Attestation: I reviewed the patient's medical records. Lab Data Attestation: I reviewed the patient's lab results. Labs: Lab Results 07/19/24 Range/Units 13:10 Chlamy pneumoniae PCR Not detected (Not Detect) Adenovirus (PCR) Not detected (Not Detect) B. pertussis DNA (PCR) Not detected (Not Detect) B.parapertussis DNA PCR Not detected (Not Detecte) Coronavirus OC43 (PCR) Not detected (Not Detect) Coronavirus HKU1 (PCR) Not detected (Not Detect) Coronavirus 229E (PCR) Not detected (Not Detect) SARS-CoV-2 (PCR) Not detected (Not Detecte) Coronavirus NL63 (PCR) Not detected (Not Detect) Human Metapneumovir PCR Not detected (Not Detect) Influenza Type A (PCR) Not detected (Not Detect) Influenza Type B (PCR) Not detected (Not Detect) M. pneumoniae (PCR) Not detected (Not Detect) Parainfluenza 1 (PCR) Not detected (Not Detect) Parainfluenza 2 (PCR) Not detected (Not Detect) Parainfluenza 3 (PCR) Not detected (Not Detect) Parainfluenza 4 (PCR) Not detected (Not Detect) RSV (PCR) Not detected (Not Detect) Entero/Rhino (PCR) Not detected (Not Detect) Group A Strep (PCR) Positive H (Negative) MDM Narrative Medical decision making narrative: This is a somewhat fatigued appearing obese 50-year-old woman presenting with concern for primarily a sore throat but also with body aches ear pain and fevers for 4 days. Her vitals today are unremarkable. She does have tender lymphadenopathy and slight erythema of the throat. Viral panel returns negative rapid strep is positive. I feel this likely explains her symptoms. She is penicillin allergic with throat swelling and was hospitalized for this as a 10-year-old. Therefore prescription for clindamycin for 10 day course to treat her strep pharyngitis. She is advised to continue rest, Tylenol, ibuprofen, push fluids. Cough medicine is also prescribed, benzonatate. Return precautions provided, follow-up plan discussed, all questions answered. <Gustabo Becker, DO - Last Filed: 07/29/24 17:56> Lab Data Labs: Lab Results 07/19/24 Range/Units 13:10 Chlamy pneumoniae PCR Not detected (Not Detect) Adenovirus (PCR) Not detected (Not Detect) B. pertussis DNA (PCR) Not detected (Not Detect) B.parapertussis DNA PCR Not detected (Not Detecte) Coronavirus OC43 (PCR) Not detected (Not Detect) Coronavirus HKU1 (PCR) Not detected (Not Detect) Coronavirus 229E (PCR) Not detected (Not Detect) SARS-CoV-2 (PCR) Not detected (Not Detecte) Coronavirus NL63 (PCR) Not detected (Not Detect) Human Metapneumovir PCR Not detected (Not Detect) Influenza Type A (PCR) Not detected (Not Detect) Influenza Type B (PCR) Not detected (Not Detect) M. pneumoniae (PCR) Not detected (Not Detect) Parainfluenza 1 (PCR) Not detected (Not Detect) Parainfluenza 2 (PCR) Not detected (Not Detect) Parainfluenza 3 (PCR) Not detected (Not Detect) Parainfluenza 4 (PCR) Not detected (Not Detect) RSV (PCR) Not detected (Not Detect) Entero/Rhino (PCR) Not detected (Not Detect) Group A Strep (PCR) Positive H (Negative) Discharge Plan Departure Patient Disposition: Home Clinical Impression: Acute streptococcal pharyngitis, Central stenosis of spinal canal Activity Restrictions/Additional Instructions: *You have been diagnosed with [strep pharyngitis] *What to do: *Please continue to take your regular medications as directed. [1 ] New medication prescriptions sent to your pharmacy: [Clindamycin] [ ] New medication written as a paper prescription [ ] No new medications given *Please follow up with your primary care provider in 2-3 days, call for an appointment. Let them know you were seen in the Emergency Department and that we ask that you be seen in follow up. We will electronically transmit a record of today's note if your PCP is in our system. Cause you are allergic to penicillins I have prescribed an alternative medicine, you do need to take this for the entire duration even if you are feeling better please take the entire 10 day course of clindamycin as prescribed. Your viral panel today came back negative. Do recommend that you can continue with Tylenol and ibuprofen to help with throat pain, please take the antibiotics as discussed and you should soon be feeling better. I also prescribed a cough medicine for you as you have been having a bothersome cough as well. *If you do not have a primary care provider please contact the [facility] Resource line at [phone]. They will ask some questions about your medical history and help get you set up with a doctor in the community. *Return to Emergency Department if you should have any new, worsening or concerning symptoms, such as [fever greater than 101 F, shaking chills, worsening pain, persistent vomiting or other bothersome symptoms] Prescriptions: No Action prazosin 2 mg capsule See Rx Instructions .ROUTE .COMPLEX Qty: 360 3RF Dose Instruction: TAKE 3 CAPSULES BY MOUTH BEDTIME FOR NIGHTMARES Rx Instructions: TAKE 4 CAPSULES BY MOUTH BEDTIME FOR NIGHTMARES duloxetine [Cymbalta] 60 mg capsule,delayed release(DR/EC) 60 mg PO BID Qty: 180 3RF clonazepam 1 mg tablet 1 mg PO TID PRN (Reason: severe anxiety) Qty: 70 0RF Rx Instructions: No early fill. Dose to last 30 days. (DME) Depends See Rx Instructions .Route .MEDSUPPLY Qty: 1 6RF Rx Instructions: As directed methocarbamol 500 mg tablet 500 mg PO TID PRN (Reason: muscle spasm) Qty: 90 1RF Rx Instructions: transition from SOMA omeprazole 40 mg capsule,delayed release(DR/EC) 40 mg PO DAILY Qty: 90 3RF lamotrigine 200 mg tablet 200 mg PO BEDTIME Qty: 90 1RF oxycodone-acetaminophen 5-325 mg tablet 1 tab .ROUTE QID Qty: 120 0RF Rx Instructions: 1 tab four times daily; must last 30 days. gabapentin 600 mg tablet 1,200 mg PO TID Qty: 540 0RF quetiapine 50 mg tablet See Rx Instructions .ROUTE .COMPLEX Qty: 450 0RF Dose Instruction: PO ONCE HS; Rx Instructions: Take 1 tab PO QAM (50mg) and 4 tabs PO QHS (200mg) (DME) Disabled Parking Permint See Rx Instructions .ROUTE .MEDSUPPLY Qty: 1 0RF Rx Instructions: I find this patient to be medically disabled and qualified for Disabled Parking as indicated and signed on the Accompanying Disabled Parking Application for individuals. Referrals: Jey Zimmer DO [Primary Care Provider] - Stand Alone Forms: Patient Portal/API/Survey ED Sign-out <Gustabo Becker DO - Last Filed: 07/29/24 17:56> Cosign ED Attending Cosignature Attestation: Dr Becker Co-Sign Statement: I was available for consultation during this patient's emergency department visit. This chart is signed by myself for administrative purposes only. I did not have direct contact with this patient during this visit. They were seen independently by the APC.
[2024-07-19] MEDS: IBUPROFEN 400 MG TABLET PO (13:38)
[2024-07-19] MEDS: ACETAMINOPHEN 325 MG TABLET 650 MG PO (13:38)
[2024-07-19 14:08] LABS: Adenovirus Not Detected (Not Detect); B. parapertussis Not Detected (Not Detecte); Bordetella pertussis Not Detected (Not Detect); Chlamydophila pneumoniae Not Detected (Not Detect); Coronavirus 229E Not Detected (Not Detect); Coronavirus HKU1 Not Detected (Not Detect); Coronavirus NL 63 Not Detected (Not Detect); Coronavirus OC43 Not Detected (Not Detect); Human Metapneumovirus Not Detected (Not Detect); Human Rhinovirus/Enterovirus Not Detected (Not Detect); Influenza A Not Detected (Not Detect); Influenza B Not Detected (Not Detect); Mycoplasma pneumoniae Not Detected (Not Detect); Parainfluenza Virus 1 Not Detected (Not Detect); Parainfluenza Virus 2 Not Detected (Not Detect); Parainfluenza Virus 3 Not Detected (Not Detect); Parainfluenza Virus 4 Not Detected (Not Detect); Respiratory Syncytial Virus Not Detected (Not Detect); SARS- CoV-2 Not Detected (Not Detecte)
[2024-07-19 14:55] VITALS: BP 108/53; PULSE 84; RESP 20; O2SAT 95
== END 2024-07-19 15:00 | disposition home or self-care (01) ==
PROVIDERS: Emergency Provider Student in an Organized Health Care Education/Training Program; Family Provider Family Medicine; PCP Family Medicine
DX: J02.0 Streptococcal pharyngitis (principal); M48.00 Spinal stenosis, site unspecified; R50.9 Fever, unspecified; H92.03 Otalgia, bilateral; Z11.52 Encounter for screening for COVID-19
CPT/HCPCS: 87633; 87651; 99283

== ENCOUNTER 2024-08-06 06:30 | Day surgery (SDC) | payer OTHER, SELFPAY ==
--- NOTE | 2024-08-06 | PATH_ITS ---
[facility] Accession Number: [id number] No. of containers..04 Tissue . 01 Material submitted: . PART A: stomach - ANTRUM PART B: stomach - FUNDUS PART C: esophagus - DISTAL ESOPHAGUS PART D: esophagus - MID ESOPHAGUS . 01 Diagnosis: A. ANTRUM, BIOPSY: Gastric mucosa with minimal chronic nonspecific inflammation. No Helicobacter pylori organisms identified on immunohistochemical evaluation. No intestinal metaplasia, dysplasia, or malignancy. . B. FUNDUS, BIOPSY: Gastric mucosa with mild inflammation. No Helicobacter pylori organisms identified on immunohistochemical evaluation. No intestinal metaplasia, dysplasia, or malignancy. . C. DISTAL ESOPHAGUS, BIOPSY: Squamous epithelium with no diagnostic abnormality. Intraepithelial eosinophils are not increased. Negative for dysplasia and malignancy. . D. MID ESOPHAGUS, BIOPSY: Squamous epithelium with no diagnostic abnormality. Intraepithelial eosinophils are not increased. Negative for dysplasia and malignancy. [facility] 08/10/2024 1246 Local . 01 Electronically signed: . Heather Ny MD, Pathologist NPI- [id number] . 01 Gross description: . A. Received in formalin with two patient identifiers and antrum, is a 0.4 cm in greatest dimension, mondragon-brown soft tissue, which is entirely submitted in cassette A1. B. Received in formalin with two patient identifiers and fundus, are three mondragon-brown irregular soft tissues ranging from 0.1 up to 0.4 cm in greatest dimension, which are entirely submitted into cassette B1. C. Received in formalin with two patient identifiers and distal esophagus, are two white irregular minute soft tissues averaging 0.1 cm in greatest dimension, which are entirely submitted into cassette C1. D. Received in formalin with two patient identifiers and mid esophagus, are two mondragon-white semitranslucent soft tissues averaging 0.2 cm in greatest dimension, which are entirely submitted into cassette D1. ([id number]) /MRV 08/07/2024 1739 [facility] . 01 Microscopic: . A. An immunohistochemical stain was performed to evaluate for Helicobacter organisms and is negative. The control stain showed appropriate reactivity. . B. An immunohistochemical stain was performed to evaluate for Helicobacter organisms and is negative. The control stain showed appropriate reactivity. . * This test was developed and the performance characteristics were validated by [employer]. It has not been cleared or approved by the U.S. Food and Drug Administration. . 01 Pathologist provided ICD-10: K29.70 . 01 CPT . 535584, 002346, 702609, 543704, P73002 Specimen Comment: A courtesy copy of this report has been sent to [phone] Performed at: [address] [id number] MD Gigi Szymanski MD Phone: [phone]
[2024-08-06 07:32] VITALS: BP 132/83; PULSE 18; RESP 96; TEMP 36.3
--- NOTE | 2024-08-06 07:40 | P.HP_ITS ---
History of Present Illness History of Present Illness Date Patient Seen: 08/06/24 Time Patient Seen: 07:40 Chief complaint: [facility] [place] Narrative: Lizeth is a 58-year-old woman who presents with several months of dysphagia and odynophagia. She feels like food gets stuck in her esophagus and has to come back up. [facility] Medical History Acute bilateral knee pain Pain management contract agreement Strain of gluteus medius of left lower extremity Recurrent sinusitis Lumbar spine pain Foot pain Cervical spine disease Bipolar disorder Cyst of breast, diffuse fibrocystic Peptic ulcer disease Gastric ulcer Adenoma of left adrenal gland (2011) Cervical polyp (08/2012) Hearing loss CTS (carpal tunnel syndrome) Chronic back pain Fibromyalgia ADHD (attention deficit hyperactivity disorder) Anxiety Depression PTSD (post-traumatic stress disorder) Asthma Colon polyps Acute viral sinusitis Kidney infection Abscess of skin Shingles Surgical History History of lumbar surgery (~1989) History of endometrial ablation (10/2012) History of colonoscopy (07/2013) History of esophagogastroduodenoscopy (EGD) (10/26/13) History of esophagogastroduodenoscopy (EGD) (03/2013) History of cystoscopy (07/2013) Social History household members: spouse Smoking Status: Former smoker Tobacco: How many years used: 2 alcohol intake: current substance use type: does not use Meds Home Medications and Allergies Home Medications Medication Instructions Recorded Confirmed Type Depends #1 ea 09/27/21 05/18/24 Rx duloxetine 60 mg capsule,delayed 60 mg PO BID #180 caps 09/16/23 05/18/24 Rx release (Cymbalta) prazosin 2 mg capsule See Rx Instructions .Route 09/16/23 05/18/24 Rx .COMPLEX #360 caps omeprazole 40 mg capsule,delayed 40 mg PO DAILY #90 caps 12/17/23 08/06/24 Rx release lamotrigine 200 mg tablet 200 mg PO BEDTIME #90 tabs 02/26/24 05/18/24 Rx Disabled Parking Permint #1 ea 05/18/24 05/18/24 Rx clonazepam 1 mg tablet 1 mg PO TID PRN severe anxiety #70 07/15/24 07/15/24 Rx tabs oxycodone-acetaminophen 5 mg-325 1 tab .Route QID #120 tabs 07/17/24 Rx mg tablet gabapentin 600 mg tablet 1,200 mg (2 x 600 mg) PO TID #540 07/21/24 Rx tabs quetiapine 50 mg tablet See Rx Instructions .Route 07/21/24 Rx .COMPLEX insomnia #450 tabs methocarbamol 500 mg tablet 500 mg PO TID PRN muscle spasm #90 08/03/24 Rx tabs Allergies Allergy/AdvReac Type Severity Reaction Status Date / Time Penicillins Allergy Severe THROAT Verified 08/06/24 07:30 SWELLING Exam Const General: anxious Assessment & Plan Assessment and plan (1) Dysphagia: Qualifiers: Dysphagia type: unspecified Qualified Code(s): R13.10 - Dysphagia, unspecified Status: Acute Plan EGD Time-Based Coding :: [TOTAL MINUTES] spent with patient and on the chart (including review of chart, obtaining history, exam, reviewing outside data, placing orders, documenting exam and treatment plan, and counseling patient) on [DATE].
--- NOTE | 2024-08-06 07:54 | PM.OP.EGD ---
Operative Date/Time/Diagnoses Date of procedure: 08/06/24 Time of procedure: 07:55 Pre-op diagnosis: Dysphagia and odynophagia Post-op diagnosis: same Procedure & Clinicians Study performed: Esophagogastroduodenoscopy Same procedure as scheduled: Yes Surgeon: Charan Henderson Procedure Notes Procedure in detail: Surgeon: Charan Henderson MD Anesthesia: Jeanette Ragsdale timeout was performed. A bite blocked was placed. The patient was positioned in the left lateral decubitus position. Anesthesia was administered. The endoscope was inserted through the bite block and passed through the esophagus and stomach and into the duodenum. The duodenal mucosa appeared normal. The scope was withdrawn into the duodenal bulb and no abnormalities were seen. The scope was withdrawn into the stomach. There was mild antritis and random biopsies were taken with cold forceps from the antrum. The scope was retroflexed and a few small ulcers were noted in the fundus. Biopsies were taken from the fundus with the cold forceps. The scope was withdrawn into the esophagus and no obvious abnormality was seen in the esophagus however biopsies were taken from the distal esophagus and mid esophagus with cold forceps due to her symptoms. The scope was withdrawn. The patient was awakened and brought to recovery. Sedation time: 6 minutes Findings: Mild antritis and few small shallow ulcers in the fundus Post-procedure Disposition: PACU
[2024-08-06 07:59] VITALS: BP 111/70; PULSE 84; RESP 15; TEMP 36.6; O2SAT 94
[2024-08-06 08:04] VITALS: BP 111/72; PULSE 81; RESP 14; O2SAT 94
[2024-08-06 08:11] VITALS: BP 124/83; PULSE 91; RESP 16; TEMP 36.6; O2SAT 93
[2024-08-06 08:13] VITALS: BP 134/74; PULSE 86; RESP 18; O2SAT 97
== END 2024-08-06 08:28 | disposition home or self-care (01) ==
PROVIDERS: Family Provider Family Medicine; PCP Family Medicine; Referring Provider Surgery; Visit Provider Surgery
PROC: 0DJ08ZZ Inspection of Upper Intestinal Tract, Via Natural or Artificial Opening Endoscopic (ICD-10-PCS; CPT 43239; principal; 2024-08-06 07:45)
DX: R13.10 Dysphagia, unspecified (principal); S70.02XA Contusion of left hip, initial encounter; R10.2 Pelvic and perineal pain; M54.6 Pain in thoracic spine; N20.1 Calculus of ureter; W19.XXXA Unspecified fall, initial encounter
CPT/HCPCS: 43239; 73522; 74177; 80053; 83690; 85025; 96374; 96375; 96376; 99284; J1171; J1885; J2704; Q9967

== ENCOUNTER 2024-08-06 08:30 | Emergency (ER) | payer MEDICARE, SELFPAY ==
[2024-08-06 08:37] VITALS: PULSE 84; O2SAT 96
--- NOTE | 2024-08-06 08:41 | ED.GENADULT ---
HPI - General Adult General Chief complaint: Fall Stated complaint: fall, hip pain Time Seen by Provider: 08/06/24 08:37 History of Present Illness HPI narrative: 58-year-old woman with a history of chronic pain taking 3 5 mg Percocets daily, bipolar disorder, morbid obesity, hypertension, dysphagia for which she underwent endoscopy today. 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 She was able to get into the endoscopy suite and did undergo endoscopy but continued to complain of significant pain and was sent to the ER for further evaluation. She states that with her fall she landed on her left hip and she is complaining of thoracic pain pelvic pain left hip pain and with any palpation along her thoracic spine or in her abdomen she is writhing in agony. She has not taken her usual Percocet dose this morning. There was no obvious bruising or contusion to the area. She did not hit her head is not complaining of upper extremity issues. Related Data Previous Rx's Medication Instructions Recorded Depends #1 ea 09/27/21 duloxetine 60 mg capsule,delayed 60 mg PO BID #180 caps 09/16/23 release (Cymbalta) prazosin 2 mg capsule See Rx Instructions .Route 09/16/23 .COMPLEX #360 caps omeprazole 40 mg capsule,delayed 40 mg PO DAILY #90 caps 12/17/23 release lamotrigine 200 mg tablet 200 mg PO BEDTIME #90 tabs 02/26/24 Disabled Parking Permint #1 ea 05/18/24 clonazepam 1 mg tablet 1 mg PO TID PRN severe anxiety #70 07/15/24 tabs oxycodone-acetaminophen 5 mg-325 1 tab .Route QID #120 tabs 07/17/24 mg tablet gabapentin 600 mg tablet 1,200 mg (2 x 600 mg) PO TID #540 07/21/24 tabs quetiapine 50 mg tablet See Rx Instructions .Route 07/21/24 .COMPLEX insomnia #450 tabs methocarbamol 500 mg tablet 500 mg PO TID PRN muscle spasm #90 08/03/24 tabs oxycodone 5 mg tablet 5 - 10 mg (1 - 2 x 5 mg) PO Q6H 08/06/24 PRN pain #14 tabs tamsulosin 0.4 mg capsule 0.8 mg (2 x 0.4 mg) PO DAILY #30 08/06/24 caps Allergies Allergy/AdvReac Type Severity Reaction Status Date / Time Penicillins Allergy Severe THROAT Verified 08/06/24 07:30 SWELLING Review of Systems Review of Systems Narrative: Pertinent positive and negative findings as per HPI Patient History Medical History Acute bilateral knee pain Pain management contract agreement Strain of gluteus medius of left lower extremity Recurrent sinusitis Lumbar spine pain Foot pain Cervical spine disease Bipolar disorder Cyst of breast, diffuse fibrocystic Peptic ulcer disease Gastric ulcer Adenoma of left adrenal gland (2011) Cervical polyp (08/2012) Hearing loss CTS (carpal tunnel syndrome) Chronic back pain Fibromyalgia ADHD (attention deficit hyperactivity disorder) Anxiety Depression PTSD (post-traumatic stress disorder) Asthma Colon polyps Acute viral sinusitis Kidney infection Abscess of skin Shingles Surgical History History of lumbar surgery (~1989) History of endometrial ablation (10/2012) History of colonoscopy (07/2013) History of esophagogastroduodenoscopy (EGD) (10/26/13) History of esophagogastroduodenoscopy (EGD) (03/2013) History of cystoscopy (07/2013) Social History household members: spouse Smoking Status: Former smoker Tobacco: How many years used: 2 alcohol intake: current substance use type: does not use Smoking Status: Former smoker tobacco type: cigarettes alcohol intake frequency: a few times a month Exam Initial Vital Signs Initial Vital Signs: Vital Signs Pulse Rate 84 08/06/24 08:37 Pulse Oximetry 96 08/06/24 08:37 General: In significant distress such that it was challenging to do any type of physical exam, protecting her airway HEENT: Moist mucous membranes, normal sclera with reactive pupils, Neck: No JVD, supple Respiratory: Full and symmetrical air movement Cardiac: Regular rate and rhythm Abdomen: Obese, soft, tenderness with palpating anywhere along the thoracic spine into the sacrum, including the pelvic ring both along the spine and any abdominal palpation exacerbates that pain. No bruising or contusion Skin: Warm and dry, no rashes Neurologic: Grossly neurologically intact with no obvious asymmetries or abnormalities Extremities: No obvious trauma, Psych: Dramatic effective behavior but cooperative Course Orders Ordered: ED Orders 08/06/24 08:47 CT abdomen pelvis w con Stat XR hip w pel if done ANSELMO 3to4V Stat 08/06/24 08:49 Complete Blood Count AUTO DIFF Stat Comprehensive Metabolic Panel Stat Lipase Stat Discontinued Medications Hydromorphone HCl (Hydromorphone 1 Mg Inj) 1 mg IV NOW ONE Stop: 08/06/24 08:48 Last Admin: 08/06/24 08:58 Dose: 1 mg Documented By: VERONICA Hydromorphone HCl (Hydromorphone 1 Mg Inj) 1 mg IV NOW ONE Stop: 08/06/24 09:51 Last Admin: 08/06/24 10:01 Dose: 1 mg Documented By: VERONICA Ketorolac Tromethamine (Ketorolac 30 Mg/Ml Vial) 15 mg IV NOW ONE Stop: 08/06/24 09:51 Last Admin: 08/06/24 10:01 Dose: 15 mg Documented By: VERONICA Oxycodone HCl (Oxycodone Ir 5 Mg Tablet) 10 mg PO NOW ONE Stop: 08/06/24 10:49 Last Admin: 08/06/24 10:57 Dose: 10 mg Documented By: VERONICA Tamsulosin HCl (Tamsulosin 0.4 Mg Capsule) 0.4 mg PO NOW ONE Stop: 08/06/24 10:49 Last Admin: 08/06/24 10:57 Dose: 0.4 mg Documented By: VERONICA Tamsulosin HCl (Tamsulosin 0.4 Mg Capsule) 0.4 mg PO NOW ONE Stop: 08/06/24 11:47 Last Admin: 08/06/24 11:53 Dose: 0.4 mg Documented By: VERONICA Vital Signs Vital signs: Vital Signs - 8 hr 08/06/24 08:37 08/06/24 08:52 Temperature 97.3 F L Pulse Rate 84 94 H Respiratory Rate 16 Blood Pressure 146/76 H Pulse Oximetry 96 98 Oxygen Delivery Method Room Air Medical Decision Making Lab Data 08/06/24 08:49 08/06/24 08:49 Labs: Lab Results 08/06/24 Range/Units 08:49 WBC 7.5 (4.5-11.0) X10^3/uL RBC 4.61 (4.0-5.2) X10^6/uL Hgb 12.6 (12.0-16.0) g/dL Hct 38.8 (36-46) % MCV 84.3 (80-100) fL MCH 27.3 (26-34) PG MCHC 32.4 (30-36) % RDW 15.8 H (11.6-14.8) % Plt Count 352 (150-400) X10^3/uL Neut % (Auto) 61.1 (50-75) % Lymph % (Auto) 29.7 (25-40) % Andrew % (Auto) 6.3 (3-14) % Eos % (Auto) 2.7 (2-4) % Baso % (Auto) 0.2 (0-2) % Neut # (Auto) 4600 (8735-8280) /uL Lymph # (Auto) 2200 (6244-7929) /uL Andrew # (Auto) 500 (0-900) /uL Eos # (Auto) 200 (0-450) /uL Baso # (Auto) 0 (0-100) /uL Sodium 138 (137-145) mmol/L Potassium 3.8 (3.4-5.1) mmol/L Chloride 108 H (98-107) mmol/L Carbon Dioxide 23 (22-32) mmol/L BUN 12 (7-17) mg/dL Creatinine 0.90 (0.52-1.04) mg/dL Estimated GFR > 60 (>60) mL/min BUN/Creatinine Ratio 13.3 (6-22) Glucose 108 H (70-100) mg/dL Calcium 9.4 (8.4-10.2) mg/dL Total Bilirubin 0.6 (0.2-1.3) mg/dL AST 37 H (14-36) IU/L ALT 25 (<35) IU/L Alkaline Phosphatase 80 (38-126) U/L Total Protein 7.2 (6.3-8.2) g/dL Albumin 4.1 (3.5-5.0) g/dL Globulin 3.1 (1.7-4.1) g/dL Albumin/Globulin Ratio 1.3 (1.0-2.8) Lipase 126 (23-300) U/L Imaging Data CT scan - abdomen/pelvis: Radiologist's Impression: PROCEDURE: CT ABDOMEN PELVIS W CON INDICATIONS: Abdominal, pelvic and left hip pain after fall this morning TECHNIQUE: After the administration of intravenous contrast, axial sections acquired from the lung bases to the pubic symphysis. Coronal and sagittal reformats were performed. For radiation dose reduction, the following was used: automated exposure control, adjustment of mA and/or kV according to patient size. COMPARISON: [facility], CT, CT ABDOMEN PELVIS W CON, 07/10/2023, 18:53. FINDINGS: Image quality: Diagnostic. Lower Chest: No significant findings. ABDOMEN: Liver: No solid mass. Steatosis. Liver measures 18.7 cm. Gallbladder: No radiopaque gallstones or wall thickening. Biliary ducts: No biliary dilation. Pancreas: No ductal dilation. Spleen: Size is within normal limits. Adrenal Glands: Unchanged left adrenal mass. Kidneys and Ureters: Mild hydronephrosis with 6 mm proximal ureteral calculus Hounsfield units 1014. Previously present inferior left renal calcification is no longer visualized. Stomach and Bowel: Normal colonic caliber, without significant wall thickening. Peritoneum: No abnormal intraperitoneal fluid. No free air. Ventral Wall: No significant ventral hernia. Abdominal Nodes: No retroperitoneal or mesenteric adenopathy by size criteria. Vessels: Aorta and inferior vena cava are normal in size. PELVIS: Pelvic Organs: Unremarkable. Bladder: No bladder wall thickening, accounting for underdistention. Pelvic Nodes: No enlarged lymph nodes. Miscellaneous: No inguinal hernias are seen. Bones: No aggressive osseous abnormality. IMPRESSION: Mild left hydronephrosis secondary to presumed migration of previous inferior pole calculus, now in the proximal ureter. Dictated by: Ximena Thornton M.D. on 08/06/2024 at 10:05 [facility] Narrative Medical decision making narrative: CC: Fall landing on her left hip Complicating co-morbidities: Was able to get up and make it to her endoscopy appointment already this morning, bipolar disorder, chronic pain Data collected from: patient Medical records reviewed: Primary care notes from May 18 are reviewed Differential considered: Pelvic fracture, hip fracture, compression fracture, intra-abdominal hemorrhage or splenic injury Exam documented above, pertinent findings include: Dramatic pain presentation interfering with complete exam. Unable to passively move her left leg, touch her hips or examine any part of her abdomen or lumbar spine Lab Test results independently reviewed as above. Pertinent findings: CBC is reassuring no evidence of acute bleeding Chemistries are within normal limits Imaging studies independently reviewed: CT scan of the abdomen shows a 6 mm kidney stone in the proximal left ureter. Certainly explains the acute onset and nature of the pain with nonlocalizing symptoms. There is a note that with previous studies a stone has been seen in the left kidney that is now absent Consultations: Dr. Mancuso, urology Treatments: Parenteral Dilaudid, Toradol, Zofran Re-evaluations: Discussed presence of kidney stone with the patient. She was somewhat surprised but relieved that there was not answer. We talked about pain medication, tamsulosin, follow up with Urology Discussion: 58-year-old woman slipped landing on her left hip while getting out of her car coming into [facility] for an upper endoscopy. Endoscopy happened she had her esophagus dilated and was having increasing pain sent to the ER for further evaluation to be related to her fall. Severe pain unable to be controlled told without IV narcotics. CT scan was done and shows that she has a 6 mm kidney stone. Together we are wondering if the stone that has been noted in her kidney was richard loose with her fall this morning. Pain has been better controlled she is still moderately uncomfortable. She currently takes 5 mg Percocets 3 times a day and her primary care physician, Dr. Zimmer, provides prescriptions and patient says they do not have a pain care contract that we will be broken if I provide additional pain medication. I have suggested additional oxycodone for a maximum of 10 mg equivalent oxycodone up to 4 times a day for the next 48 hours. Will also give her tamsulosin and have asked her to schedule an appointment with Dr. Mancuso for early next week in case the stone has not passed. At this point there was no evidence of sepsis, renal failure, significant broken bones or other injury from her fall there was no indication for additional imaging and she is safe for discharge Discharge Plan Departure Patient Disposition: Home Clinical Impression: Calculus, ureteral Fall Qualifiers: Encounter type: initial encounter Qualified Code(s): W19.XXXA - Unspecified fall, initial encounter Contusion of hip, left Qualifiers: Encounter type: initial encounter Qualified Code(s): S70.02XA - Contusion of left hip, initial encounter Instructions: DI for Kidney Stones Activity Restrictions/Additional Instructions: Thank you for coming in today. You are going to be sore from your fall that you did not break any bones You may have jostled your kidney stone loose with a fall. You do have a 6 mm kidney stone that is in the ureter, the tube from the kidney to the bladder. That is what is causing you are acute pain. Frequently people can pass kidney stones by themselves. I have discussed her case with Dr. Mancuso, our urologist. He is recommended 0.8 mg of tamsulosin daily until you pass the stone. This can help open up the ureter a tiny bit. For pain control, I am going to suggest that you add ibuprofen 400 mg every 6 hours for pain control. You can continue to use your current Percocet, 5 mg 3 times a day. I have given you an additional prescription for oxycodone (the narcotic and Percocet) to use for pain uncontrolled by this combination. You can take up to a total of 8 oxycodone/Percocet pills in a [address] Mancuso's office at [phone] to schedule an appointment follow up for kidney stones. If you find that you are in the amount of pain that you are in on arrival to the ER, you simply need to return to the emergency department Prescriptions: New oxycodone 5 mg tablet 5 - 10 mg PO Q6H PRN (Reason: pain) Qty: 14 0RF Rx Instructions: This is for acute kidney stone and in addition to her chronic Percocet from Dr. Zimmer tamsulosin 0.4 mg capsule 0.8 mg PO DAILY Qty: 30 0RF No Action prazosin 2 mg capsule See Rx Instructions .ROUTE .COMPLEX Qty: 360 3RF Dose Instruction: TAKE 3 CAPSULES BY MOUTH BEDTIME FOR NIGHTMARES Rx Instructions: TAKE 4 CAPSULES BY MOUTH BEDTIME FOR NIGHTMARES duloxetine [Cymbalta] 60 mg capsule,delayed release(DR/EC) 60 mg PO BID Qty: 180 3RF clonazepam 1 mg tablet 1 mg PO TID PRN (Reason: severe anxiety) Qty: 70 0RF Rx Instructions: No early fill. Dose to last 30 days. (DME) Depends See Rx Instructions .Route .MEDSUPPLY Qty: 1 6RF Rx Instructions: As directed omeprazole 40 mg capsule,delayed release(DR/EC) 40 mg PO DAILY Qty: 90 3RF lamotrigine 200 mg tablet 200 mg PO BEDTIME Qty: 90 1RF oxycodone-acetaminophen 5-325 mg tablet 1 tab .ROUTE QID Qty: 120 0RF Rx Instructions: 1 tab four times daily; must last 30 days. gabapentin 600 mg tablet 1,200 mg PO TID Qty: 540 0RF quetiapine 50 mg tablet See Rx Instructions .ROUTE .COMPLEX Qty: 450 0RF Dose Instruction: PO ONCE HS; Rx Instructions: Take 1 tab PO QAM (50mg) and 4 tabs PO QHS (200mg) methocarbamol 500 mg tablet 500 mg PO TID PRN (Reason: muscle spasm) Qty: 90 1RF Rx Instructions: transition from [facility] (DME) Disabled Parking Permint See Rx Instructions .ROUTE .MEDSUPPLY Qty: 1 0RF Rx Instructions: I find this patient to be medically disabled and qualified for Disabled Parking as indicated and signed on the Accompanying Disabled Parking Application for individuals. Referrals: Jey Zimmer, [Primary Care Provider] - Stand Alone Forms: Patient Portal/API/Survey
--- NOTE | 2024-08-06 08:47 | DI.CT.S_ITS ---
PROCEDURE: CT ABDOMEN PELVIS W CON INDICATIONS: Abdominal, pelvic and left hip pain after fall this morning TECHNIQUE: After the administration of intravenous contrast, axial sections acquired from the lung bases to the pubic symphysis. Coronal and sagittal reformats were performed. For radiation dose reduction, the following was used: automated exposure control, adjustment of mA and/or kV according to patient size. COMPARISON: [facility], CT, CT ABDOMEN PELVIS W CON, 07/10/2023, 18:53. FINDINGS: Image quality: Diagnostic. Lower Chest: No significant findings. ABDOMEN: Liver: No solid mass. Steatosis. Liver measures 18.7 cm. Gallbladder: No radiopaque gallstones or wall thickening. Biliary ducts: No biliary dilation. Pancreas: No ductal dilation. Spleen: Size is within normal limits. Adrenal Glands: Unchanged left adrenal mass. Kidneys and Ureters: Mild hydronephrosis with 6 mm proximal ureteral calculus Hounsfield units 1014. Previously present inferior left renal calcification is no longer visualized. Stomach and Bowel: Normal colonic caliber, without significant wall thickening. Peritoneum: No abnormal intraperitoneal fluid. No free air. Ventral Wall: No significant ventral hernia. Abdominal Nodes: No retroperitoneal or mesenteric adenopathy by size criteria. Vessels: Aorta and inferior vena cava are normal in size. PELVIS: Pelvic Organs: Unremarkable. Bladder: No bladder wall thickening, accounting for underdistention. Pelvic Nodes: No enlarged lymph nodes. Miscellaneous: No inguinal hernias are seen. Bones: No aggressive osseous abnormality. IMPRESSION: Mild left hydronephrosis secondary to presumed migration of previous inferior pole calculus, now in the proximal ureter. Dictated by: Ximena Thornton M.D. on 08/06/2024 at 10:05 Approved by: Ximena Thornton M.D. on 08/06/2024 at 10:09
--- NOTE | 2024-08-06 08:47 | DI.RAD.S_ITS ---
PROCEDURE: XR HIP W PEL IF DONE ANSELMO MIN 4V INDICATIONS: fall, pain TECHNIQUE: AP pelvis with lateral view(s) of the bilateral hip(s). COMPARISON: [facility], , XR HIP W PEL IF DONE ANSELMO 3TO4V, 06/25/2019, 13:38. FINDINGS: Bones: No fractures or dislocations. Pelvic ring appears intact. No suspicious bony lesions. Soft tissues: The visualized bowel gas pattern is normal. No suspicious soft tissue calcifications. IMPRESSION: No visualized acute fracture or dislocation. However, if clinical concern and/or pain persist, short interval imaging followup in 7-10 days is recommended, as occult injury cannot be definitively excluded. Dictated by: Ximena Thornton M.D. on 08/06/2024 at 10:10 Approved by: Ximena Thornton M.D. on 08/06/2024 at 10:11
[2024-08-06 08:52] VITALS: BP 146/76; PULSE 94; RESP 16; TEMP 36.3; O2SAT 98; BMI 44.8
[2024-08-06 08:57] LABS: Add Manual Diff / Slide Review NO; Basophils Absolute Auto 0 /uL (0-100); Basophils Percent Auto 0.2 % (0-2); Eosinophils Absolute Auto 200 /uL (0-450); Eosinophils Percent Auto 2.7 % (2-4); Hematocrit 38.8 % (36-46); Hemoglobin 12.6 g/dL (12.0-16.0); Lymphocytes Absolute Auto 2200 /uL (1100-4500); Lymphocytes Percent Auto 29.7 % (25-40); Mean Corpuscular HGB Conc 32.4 % (30-36); Mean Corpuscular Hemoglobin 27.3 PG (26-34); Mean Corpuscular Volume 84.3 fL (80-100); Monocytes Absolute Auto 500 /uL (0-900); Monocytes Percent Auto 6.3 % (3-14); Neutrophils Absolute Auto 4600 /uL (1500-7000); Neutrophils Percent Auto 61.1 % (50-75); Platelet Count 352 X10^3/uL (150-400); Red Blood Cell Count 4.61 X10^6/uL (4.0-5.2); Red Cell Distribution Width 15.8 % (11.6-14.8); White Blood Cell Count 7.5 X10^3/uL (4.5-11.0)
[2024-08-06] MEDS: HYDROMORPHONE 1 MG INJ IV ×2 (08:58→10:01)
[2024-08-06 09:12] LABS: Alanine Aminotransferase 25 IU/L (<35); Albumin 4.1 g/dL (3.5-5.0); Albumin Globulin Ratio 1.3 (1.0-2.8); Alkaline Phosphatase 80 U/L (38-126); Aspartate Aminotransferase 37 IU/L (14-36); BUN Creatinine Ratio 13.3 (6-22); Bilirubin Total 0.6 mg/dL (0.2-1.3); Blood Urea Nitrogen 12 mg/dL (7-17); Calcium 9.4 mg/dL (8.4-10.2); Carbon Dioxide 23 mmol/L (22-32); Chloride 108 mmol/L (98-107); Estimated Glomerular Filt Rate > 60 mL/min (>60); Globulin 3.1 g/dL (1.7-4.1); Glucose 108 mg/dL (70-100); HEMOLYSIS 15 (0-50); Lipase 126 U/L (23-300); Potassium 3.8 mmol/L (3.4-5.1); Sodium 138 mmol/L (137-145); Total Protein 7.2 g/dL (6.3-8.2)
[2024-08-06] MEDS: KETOROLAC 30 MG/ML VIAL 15 MG IV (10:01)
[2024-08-06] MEDS: TAMSULOSIN 0.4 MG CAPSULE PO ×2 (10:57→11:53)
[2024-08-06] MEDS: OXYCODONE IR 5 MG TABLET 10 MG PO (10:57)
[2024-08-06 13:04] VITALS: BP 125/67; PULSE 97; RESP 15; TEMP 36.6; O2SAT 93
== END 2024-08-06 13:05 | disposition home or self-care (01) ==
PROVIDERS: Emergency Provider Emergency Medicine; Family Provider Family Medicine; PCP Family Medicine
DX: S70.02XA Contusion of left hip, initial encounter (principal); R10.2 Pelvic and perineal pain; M54.6 Pain in thoracic spine; N20.1 Calculus of ureter; W19.XXXA Unspecified fall, initial encounter
CPT/HCPCS: 73522; 74177; 80053; 83690; 85025; J1171; J1885; Q9967

== ENCOUNTER → 2024-08-17 16:35 | Outpatient (CLI) | payer MEDICARE, SELFPAY ==
--- NOTE | 2024-08-17 16:37 | DI.RAD.S_ITS ---
PROCEDURE: XR KUB INDICATIONS: Evaluate ureteral calculus TECHNIQUE: One view of the abdomen acquired. COMPARISON: [facility], CT, CT ABDOMEN PELVIS W CON, 08/06/2024, 9:09. FINDINGS: Surgical changes and devices: None. Bowel: Bowel gas pattern is normal. Soft tissues: There is faint calcific density that is approximately a cm in length projecting over the left lateral aspect of the left psoas muscle consistent with the calculus seen on CT scan August 06, 2024. Bones: No suspicious bony lesions. IMPRESSION: Persistent left ureteral calculus Dictated by: Lucas Tyler M.D. on 08/18/2024 at 8:10 Approved by: Lucas Tyler M.D. on 08/18/2024 at 8:12
== END ==
PROVIDERS: Family Provider Family Medicine; PCP Family Medicine; Referring Provider Urology; Visit Provider Urology
DX: N20.1 Calculus of ureter (principal); S70.02XA Contusion of left hip, initial encounter
CPT/HCPCS: 51798; 74018; 81002; 99214

== ENCOUNTER 2024-08-18 10:19 | Day surgery (SDC) | payer MEDICARE, SELFPAY ==
[2024-08-18] VITALS (11 sets, daily range): BP systolic 115–164; BP diastolic 48–95; PULSE 9–101; RESP 13–20; TEMP 36.4–36.6; O2SAT 90–97; BMI 40.6
[2024-08-18] MEDS: LACTATED RINGERS 1,000 ML 42 ML IV (11:01)
[2024-08-18] MEDS: ACETAMINOPHEN 325 MG TABLET 975 MG PO (11:03)
--- NOTE | 2024-08-18 11:38 | PM.PREOP ---
Pre-operative Note COVID-19 COVID-19 status: Not tested Interval Note History & Physical reviewed/Exam performed by Physician: Yes Changes to H&P: No
--- NOTE | 2024-08-18 13:29 | SUR.OPER ---
Lithotomy on padded OR bed, head on pillow, arms secured on padded arm boards at <90 degrees abduction. Legs secured in padded yellow fins stirrups.
--- NOTE | 2024-08-18 13:38 | PM.OP.1 ---
Procedure & Clinicians Procedure: Cystoscopy with left ureteral stent placement Same procedure as scheduled: Yes Indications: This 58-year-old female presents today for cystoscopy with left stent placement related to her 6-7 mm left ureteral calculus which has failed to pass. The stone has not moved much in appears to be impacted thus just a stent will be placed today in definitive treatment of the stone we will occurred later date. Surgeon: Cisco Mancuso Click Yes if Unassisted: Yes Anesthesia Type: General Operative Notes Findings: Findings: External genitalia were normal there was some mild atrophic vaginitis. The urethral meatus was normal the urethra was normal along its length. There was some descensus of the bladder floor of the left and right ureteral orifice were in normal position and appeared to have clear efflux. There was moderate trabeculation in the bladder but no other mucosal lesions that would indicate malignancy or other worrisome abnormality. There were no stones and or evidence of fistula. The stone was noted to be in the proximal ureter on the left. The 7 [place] multi length stent was left in good position in the left collecting system and bladder with no string attached. No other abnormality or notable finding. Closure Type: not applicable Specimen(s): none sent Prosthetic devices, grafts, tissues, transplants, or devices: Left ureteral stent Applied: other (7 [place] by multi length stent left collecting system no string) Estimated Blood Loss (mL): 0 Blood products transfused: none Tourniquet time (min): 0 Procedure in detail: Procedure in detail: After informed consent was obtained, the patient was identified brought to the operating room where she was placed in a supine position on the table and anesthesia was induced and maintained. Ensuring an adequate level of anesthesia the patient was transitioned to the lithotomy position where she was prepped, draped and prepared in his sterile fashion for cystoscopic procedure. After prepping, draping, ensuring an adequate level of anesthesia, time-out and test dose of antibiotics which appeared to result perhaps in a dip in blood pressure therefore antibiotics were not given. Waiting for the patient's blood pressure to recover which it did quite easily; and after it was in the normal range and anesthesia gave the go ahead the 22 [place] cystoscope was passed to the urethra and into bladder where cystoscopy was performed. The left ureteral orifice was identified and a hybrid guidewire was passed up into the collecting system under fluoroscopic visualization. The stent was then passed over the wire positioned in the renal pelvis under fluoroscopic visualization in the bladder under direct vision and within good position of the wire was removed. This was followed by the nylon harness which left the stent in good position both within the bladder under direct vision and in the renal pelvis under fluoroscopic visualization. With this accomplished the bladder was drained the scope was removed and the patient was awakened having tolerated the procedure well with normal vital signs and no complication. Patient was then transferred to the postanesthesia recovery unit for recovery. Once recovered the patient will be discharged to home to follow up my office in a proximally 2 weeks with a KUB. Complications: none Post-operative Condition: stable Plan for aftercare: Once the patient has recovered and awakened she will be discharged to home to follow up my office in 2 weeks with a KUB.
[2024-08-18] MEDS: KETOROLAC 30 MG/ML VIAL IV (13:58)
[2024-08-18] MEDS: PHENAZOPYRIDINE 100 MG TABLET 200 MG PO (14:01)
[2024-08-18] MEDS: OXYCODONE IR 5 MG TABLET PO (14:01)
[2024-08-18] MEDS: hydrOXYzine 50 MG/ML INJ IM (14:04)
[2024-08-18] MEDS: HYDROMORPHONE 1 MG INJ IV (14:10)
== END 2024-08-18 14:51 | disposition home or self-care (01) ==
PROVIDERS: Family Provider Family Medicine; PCP Family Medicine; Referring Provider Urology; Visit Provider Urology
PROC: (CPT 52332; principal; 2024-08-18 11:45)
DX: N20.1 Calculus of ureter (principal)
CPT/HCPCS: 52332; 76000; J1100; J1171; J1885; J2250; J2405; J2704; J3010; J3410

== ENCOUNTER 2024-08-25 20:45 | Emergency (ER) | payer MEDICARE, SELFPAY ==
[2024-08-25 20:54] VITALS: BP 113/55; PULSE 107; RESP 16; TEMP 36.4; O2SAT 95; BMI 40.9
--- NOTE | 2024-08-25 22:15 | PC.NURSE ---
Pt ambulatory to restroom without difficulty or assistance
--- NOTE | 2024-08-25 22:19 | DI.RAD.S_ITS ---
PROCEDURE: XR FOOT RT MIN 3V INDICATIONS: LATERAL FOOT PAIN, FALL INJURY TECHNIQUE: 3 views of the foot were acquired. COMPARISON: [facility], , FOOT 3V RIGHT, 05/24/2016, 10:56. FINDINGS: Bones: No fractures or dislocations. No suspicious bony lesions. Age-appropriate bony degenerative changes are seen. There is a moderate plantar calcaneal spur. Incidental note is made of an accessory ossicle, an os peroneum. Soft tissues: Soft tissue injury is seen laterally. Mac radiopaque IMPRESSION: Soft tissue injury laterally, without fracture or radiopaque foreign body. Dictated by: Roscoe Siddiqui M.D. on 08/25/2024 at 21:36 Approved by: Roscoe Siddiqui M.D. on 08/25/2024 at 21:36
--- NOTE | 2024-08-25 22:19 | ED.WOUNDLAC ---
HPI - Wound/Laceration General Chief Complaint: Wound/Laceration Stated Complaint: rt foot injury Time Seen by Provider: 08/25/24 22:14 Source: patient and family Mode of arrival: Wheelchair History of Present Illness HPI narrative: 50-year-old female presents for right foot pain. She accidentally knocked over a metal fish that fell and landed on her right foot. Patient became concerned because she saw a large amount of blood and came to the ER for evaluation. Uncertain when last tetanus shot was administered. Related Data Previous Rx's Medication Instructions Recorded Depends #1 ea 09/27/21 duloxetine 60 mg capsule,delayed 60 mg PO BID #180 caps 09/16/23 release (Cymbalta) prazosin 2 mg capsule See Rx Instructions .Route 09/16/23 .COMPLEX #360 caps omeprazole 40 mg capsule,delayed 40 mg PO DAILY #90 caps 12/17/23 release lamotrigine 200 mg tablet 200 mg PO BEDTIME #90 tabs 02/26/24 Disabled Parking Permint #1 ea 05/18/24 gabapentin 600 mg tablet 1,200 mg (2 x 600 mg) PO TID #540 07/21/24 tabs quetiapine 50 mg tablet See Rx Instructions .Route 07/21/24 .COMPLEX insomnia #450 tabs methocarbamol 500 mg tablet 500 mg PO TID PRN muscle spasm #90 08/03/24 tabs clonazepam 1 mg tablet 1 mg PO TID PRN severe anxiety #70 08/17/24 tabs oxycodone 5 mg tablet 5 - 10 mg (1 - 2 x 5 mg) PO Q6H 08/17/24 PRN pain #120 tabs phenazopyridine 200 mg tablet 200 mg PO TID PRN Bladder 08/18/24 (Pyridium) irritation #30 tabs Allergies Allergy/AdvReac Type Severity Reaction Status Date / Time Penicillins Allergy Severe THROAT Verified 08/18/24 10:52 SWELLING Patient History Medical History Hx of migraine headaches Acute bilateral knee pain Pain management contract agreement Strain of gluteus medius of left lower extremity Recurrent sinusitis Lumbar spine pain Foot pain Cervical spine disease Bipolar disorder Cyst of breast, diffuse fibrocystic Peptic ulcer disease Gastric ulcer Adenoma of left adrenal gland (2011) Cervical polyp (08/2012) Hearing loss CTS (carpal tunnel syndrome) Chronic back pain Fibromyalgia ADHD (attention deficit hyperactivity disorder) Anxiety Depression PTSD (post-traumatic stress disorder) Asthma Colon polyps Acute viral sinusitis Kidney infection Abscess of skin Shingles Surgical History Hx of tubal ligation Hx of breast biopsy History of lumbar surgery (~1989) History of endometrial ablation (10/2012) History of colonoscopy (07/2013) History of esophagogastroduodenoscopy (EGD) (10/26/13) History of esophagogastroduodenoscopy (EGD) (03/2013) History of cystoscopy (07/2013) Family History Aunt Cancer Brother Cancer Mother CVA (cerebral vascular accident) Grandmother Diabetes mellitus Uncle Diabetes mellitus Daughter Thyroid disorder Son Thyroid disorder Social History marital status: number of children: 4 household members: spouse Smoking Status: Current some day smoker Tobacco: How many years used: 2 alcohol intake: current substance use type: does not use caffeine: Yes Type(s) of exercise: decline to answer Smoking Status: Current some day smoker tobacco type: cigarettes alcohol intake frequency: a few times a month Exam Initial Vital Signs Initial Vital Signs: Vital Signs Temperature 97.6 F 08/25/24 20:54 Pulse Rate 107 H 08/25/24 20:54 Respiratory Rate 16 08/25/24 20:54 Blood Pressure 113/55 L 08/25/24 20:54 Pulse Oximetry 95 08/25/24 20:54 Oxygen Delivery Method Room Air 08/25/24 20:54 Const: Awake, alert, no acute distress, nontoxic appearing Cardiac: regular rate, regular rhythm RESP: unlabored, clear bilaterally MSK: no deformity, generalized tenderness over lateral R foot, palpable pulses Skin: Warm, Dry, 1cm superficial laceration lateral R foot (dorsal) Neuro: AO x3, CN II-XII grossly intact, moves all extremities Course Orders Ordered: ED Orders 08/25/24 22:19 XR foot RT min 3V Stat Discontinued Medications Diphtheria/Tetanus/Acell Pertussis (Tet,Diph,Pertuss(Acell),Vac/Pf 0.5 Ml Syringe) 0.5 ml IM .ONCE ONE Stop: 08/25/24 22:20 Last Admin: 08/25/24 22:35 Dose: 0.5 ml Documented By: TRINA Vital Signs Vital signs: Vital Signs - 8 hr 08/25/24 20:54 08/25/24 22:52 Temperature 97.6 F Pulse Rate 107 H 98 H Respiratory Rate 16 26 H Blood Pressure 113/55 L 112/62 Pulse Oximetry 95 94 Oxygen Delivery Method Room Air Room Air MDM - Wound/Laceration MDM Narrative Medical decision making narrative: Injury to right foot. There is a small superficial laceration on the dorsum of the right lateral foot, however it was superficial enough that it was not need sutures. Bandage applied. X-ray of the foot negative for acute traumatic findings. Patient was able to ambulate to and from the bathroom without significant difficulty. Patient counseled on wound care instructions. Discharge Plan Departure Patient Disposition: Home Clinical Impression: Acute foot pain, Foot laceration Instructions: DI for Minor Laceration Activity Restrictions/Additional Instructions: Your x-ray did not show any fractures. You may wear a bandage on your foot as needed. Take Tylenol and ibuprofen as needed for pain. Ice can also be applied as needed for comfort. Prescriptions: No Action prazosin 2 mg capsule See Rx Instructions .ROUTE .COMPLEX Qty: 360 3RF Dose Instruction: TAKE 3 CAPSULES BY MOUTH BEDTIME FOR NIGHTMARES Rx Instructions: TAKE 4 CAPSULES BY MOUTH BEDTIME FOR NIGHTMARES duloxetine [Cymbalta] 60 mg capsule,delayed release(DR/EC) 60 mg PO BID Qty: 180 3RF (DME) Depends See Rx Instructions .Route .MEDSUPPLY Qty: 1 6RF Rx Instructions: As directed omeprazole 40 mg capsule,delayed release(DR/EC) 40 mg PO DAILY Qty: 90 3RF lamotrigine 200 mg tablet 200 mg PO BEDTIME Qty: 90 1RF gabapentin 600 mg tablet 1,200 mg PO TID Qty: 540 0RF quetiapine 50 mg tablet See Rx Instructions .ROUTE .COMPLEX Qty: 450 0RF Dose Instruction: PO ONCE HS; Rx Instructions: Take 1 tab PO QAM (50mg) and 4 tabs PO QHS (200mg) methocarbamol 500 mg tablet 500 mg PO TID PRN (Reason: muscle spasm) Qty: 90 1RF Rx Instructions: transition from SOMA clonazepam 1 mg tablet 1 mg PO TID PRN (Reason: severe anxiety) Qty: 70 0RF Rx Instructions: No early fill. Dose to last 30 days. oxycodone 5 mg tablet 5 - 10 mg PO Q6H PRN (Reason: pain) Qty: 120 0RF Rx Instructions: This is for acute kidney stone and in addition to her chronic Percocet from Dr. Zimmer ([facility] [place] Disabled Parking Permint See Rx Instructions .ROUTE .MEDSUPPLY Qty: 1 0RF Rx Instructions: I find this patient to be medically disabled and qualified for Disabled Parking as indicated and signed on the Accompanying Disabled Parking Application for individuals. phenazopyridine [Pyridium] 200 mg tablet 200 mg PO TID PRN (Reason: Bladder irritation) Qty: 30 0RF Referrals: Jey Zimmer DO [Primary Care Provider] - Stand Alone Forms: Patient Portal/API/Survey
[2024-08-25] MEDS: TET,DIPH,PERTUSS(ACELL),VAC/PF 0.5 ML SYRINGE IM (22:35)
[2024-08-25 22:52] VITALS: BP 112/62; PULSE 98; RESP 26; O2SAT 94
== END 2024-08-25 22:52 | disposition home or self-care (01) ==
PROVIDERS: Emergency Provider Emergency Medicine; Family Provider Family Medicine; PCP Family Medicine
DX: S91.311A Laceration without foreign body, right foot, initial encounter (principal); W20.8XXA Other cause of strike by thrown, projected or falling object, initial encounter; Z23 Encounter for immunization
CPT/HCPCS: 73630; 90471; 99283; 99284; 90715

== ENCOUNTER 2024-08-27 18:21 | Emergency (ER) | payer OTHER, SELFPAY ==
[2024-08-27] VITALS (8 sets, daily range): BP systolic 124–137; BP diastolic 62–82; PULSE 80–89; RESP 14–22; TEMP 36.3; O2SAT 93–95; BMI 40.2
[2024-08-27 19:43] LABS: Bacteria Urine Few (2-10); RBC Urine 30-100/HPF (0-5/HPF); Urine Volume 10mL (spun); WBC Urine 10-30/HPF (0-5/HPF)
[2024-08-27 19:44] LABS: Culture Indicated Urine Specimen Cultured; Squamous Epithelial Cell Urine 0-1 /HPF (0-5/HPF)
--- NOTE | 2024-08-27 21:26 | ED_ITS ---
HPI - General Adult General Chief complaint: Urogenital-Female Stated complaint: stent placed a week ago, pain Time Seen by Provider: 08/27/24 20:25 Source: patient Mode of arrival: Wheelchair History of Present Illness HPI narrative: Patient was a 58-year-old female. Had a stent placed in the left ureter less than 1 week ago. She reports that since that time she was had continued discomfort in her pelvic region. No vomiting. No fevers. She was not on antibiotics. She does have pain medication at home that she has been taking occasionally. She also reports a rash under her left breast that is develop over the past couple days as well. She states it is burning sensation. No itching. She was yet to follow up with urology since her procedure. No abdominal pain. No change in bowel habits. Related Data Previous Rx's Medication Instructions Recorded Depends #1 ea 09/27/21 duloxetine 60 mg capsule,delayed 60 mg PO BID #180 caps 09/16/23 release (Cymbalta) prazosin 2 mg capsule See Rx Instructions .Route 09/16/23 .COMPLEX #360 caps omeprazole 40 mg capsule,delayed 40 mg PO DAILY #90 caps 12/17/23 release lamotrigine 200 mg tablet 200 mg PO BEDTIME #90 tabs 02/26/24 Disabled Parking Permint #1 ea 05/18/24 gabapentin 600 mg tablet 1,200 mg (2 x 600 mg) PO TID #540 07/21/24 tabs quetiapine 50 mg tablet See Rx Instructions .Route 07/21/24 .COMPLEX insomnia #450 tabs methocarbamol 500 mg tablet 500 mg PO TID PRN muscle spasm #90 08/03/24 tabs clonazepam 1 mg tablet 1 mg PO TID PRN severe anxiety #70 08/17/24 tabs oxycodone 5 mg tablet 5 - 10 mg (1 - 2 x 5 mg) PO Q6H 08/17/24 PRN pain #120 tabs phenazopyridine 200 mg tablet 200 mg PO TID PRN Bladder 08/18/24 (Pyridium) irritation #30 tabs nystatin 100,000 unit/gram topical 1 applic topical TID #15 grams 08/27/24 powder Allergies Allergy/AdvReac Type Severity Reaction Status Date / Time Penicillins Allergy Severe THROAT Verified 08/18/24 10:52 SWELLING Review of Systems Review of Systems Narrative: See HPI Patient History Medical History Hx of migraine headaches Acute bilateral knee pain Pain management contract agreement Strain of gluteus medius of left lower extremity Recurrent sinusitis Lumbar spine pain Foot pain Cervical spine disease Bipolar disorder Cyst of breast, diffuse fibrocystic Peptic ulcer disease Gastric ulcer Adenoma of left adrenal gland (2011) Cervical polyp (08/2012) Hearing loss CTS (carpal tunnel syndrome) Chronic back pain Fibromyalgia ADHD (attention deficit hyperactivity disorder) Anxiety Depression PTSD (post-traumatic stress disorder) Asthma Colon polyps Acute viral sinusitis Kidney infection Abscess of skin Shingles Surgical History Hx of tubal ligation Hx of breast biopsy History of lumbar surgery (~1989) History of endometrial ablation (10/2012) History of colonoscopy (07/2013) History of esophagogastroduodenoscopy (EGD) (10/26/13) History of esophagogastroduodenoscopy (EGD) (03/2013) History of cystoscopy (07/2013) Family History Aunt Cancer Brother Cancer Mother CVA (cerebral vascular accident) Grandmother Diabetes mellitus Uncle Diabetes mellitus Daughter Thyroid disorder Son Thyroid disorder Social History marital status: number of children: 4 household members: spouse Smoking Status: Current some day smoker Tobacco: How many years used: 2 alcohol intake: current substance use type: does not use caffeine: Yes Type(s) of exercise: decline to answer Smoking Status: Current some day smoker tobacco type: cigarettes alcohol intake frequency: a few times a month Exam Initial Vital Signs Initial Vital Signs: Vital Signs Temperature 97.4 F L 08/27/24 18:34 Pulse Rate 89 08/27/24 18:34 Respiratory Rate 22 08/27/24 18:34 Blood Pressure 124/75 08/27/24 18:34 Pulse Oximetry 95 08/27/24 18:34 Oxygen Delivery Method Room Air 08/27/24 18:34 Const General: cooperative, comfortable and No ill appearing HENMT Head: normal to inspection and normocephalic Resp Effort & Inspection: normal respiratory effort Cardio Rate: regular rate GI Inspection: normal to inspection and non-distended Palpation: soft and No tender Skin Other: Patient has a red beefy rash located under her left breast. No vesicles. No pustules. Neuro General: patient alert, patient awake and moves all extremities Extrem General: capillary refill normal Course Orders Ordered: ED Orders 08/27/24 19:20 Urine Culture Stat Urine Microscopic Stat 08/27/24 20:30 Complete Blood Count AUTO DIFF Stat Comprehensive Metabolic Panel Stat Lipase Stat 08/27/24 21:27 CT kidney ureter bladder (KUB) Stat Discontinued Medications Oxycodone/Acetaminophen (Oxycodone/Apap 5/325 Prepack) 1 bottle MISC DIRECTED ONE Stop: 08/27/24 22:46 Last Admin: 08/27/24 22:57 Dose: 1 bottle Documented By: YASMEEN Vital Signs Vital signs: Vital Signs - 8 hr 08/27/24 20:56 08/27/24 21:00 08/27/24 21:43 Pulse Rate 86 82 Respiratory Rate Blood Pressure 135/69 Pulse Oximetry 93 94 Oxygen Delivery Method 08/27/24 21:43 08/27/24 22:00 08/27/24 22:00 Pulse Rate 80 80 Respiratory Rate Blood Pressure 132/63 Pulse Oximetry 95 93 Oxygen Delivery Method 08/27/24 22:28 08/27/24 22:28 08/27/24 22:30 Pulse Rate 81 Respiratory Rate Blood Pressure 127/82 126/80 Pulse Oximetry 94 Oxygen Delivery Method 08/27/24 22:30 08/27/24 23:07 Pulse Rate 81 84 Respiratory Rate 18 14 Blood Pressure 137/62 Pulse Oximetry 94 93 Oxygen Delivery Method Room Air Medical Decision Making Lab Data Lab results reviewed: Yes I reviewed the patient's lab results. 08/27/24 20:30 08/27/24 20:30 Labs: Lab Results 08/27/24 08/27/24 Range/Units 19:20 20:30 WBC 7.4 (4.5-11.0) X10^3/uL RBC 3.86 L (4.0-5.2) X10^6/uL Hgb 10.9 L (12.0-16.0) g/dL Hct 32.9 L (36-46) % MCV 85.1 (80-100) fL MCH 28.3 (26-34) PG MCHC 33.3 (30-36) % RDW 16.2 H (11.6-14.8) % Plt Count 317 (150-400) X10^3/uL Neut % (Auto) 63.2 (50-75) % Lymph % (Auto) 22.2 L (25-40) % [place] % (Auto) 6.9 (3-14) % Eos % (Auto) 6.6 H (2-4) % Baso % (Auto) 1.1 (0-2) % Neut # (Auto) 4700 (1318-9197) /uL Lymph # (Auto) 1600 (1293-3250) /uL [place] # (Auto) 500 (0-900) /uL Eos # (Auto) 500 H (0-450) /uL Baso # (Auto) 100 (0-100) /uL Sodium 136 L (137-145) mmol/L Potassium 4.0 (3.4-5.1) mmol/L Chloride 108 H (98-107) mmol/L Carbon Dioxide 26 (22-32) mmol/L BUN 11 (7-17) mg/dL Creatinine 0.86 (0.52-1.04) mg/dL Estimated GFR > 60 (>60) mL/min BUN/Creatinine Ratio 12.8 (6-22) Glucose 91 (70-100) mg/dL Calcium 9.0 (8.4-10.2) mg/dL Total Bilirubin 0.4 (0.2-1.3) mg/dL AST 55 H (14-36) IU/L ALT 22 (<35) IU/L Alkaline Phosphatase 74 (38-126) U/L Total Protein 6.7 (6.3-8.2) g/dL Albumin 3.5 (3.5-5.0) g/dL Globulin 3.2 (1.7-4.1) g/dL Albumin/Globulin Ratio 1.1 (1.0-2.8) Lipase 96 (23-300) U/L Urine RBC 30-100/hpf H (0-5/HPF) Urine WBC 10-30/hpf H (0-5/HPF) Ur Squamous Epith Cells 0-1 /hpf (0-5/HPF) Urine Bacteria Few (2-10) H (None) Ur Culture Indicated? Specimen cultured Vol Urine Centrifuged 10ml (spun) Urine Dip Bedside Urine Glucose Negative Bedside Urine Bilirubin - Negative Bedside Urine Ketone - Negative Urine Specific Lyons 1.03 Bedside Urine Occult Blood +++ Bedside Urine pH 5.5 Bedside Urine Protein + 30 Bedside Urine Urobilinogen - Negative Bedside Urine Nitrite - Negative Bedside Urine Leukocytes +/- 15 Esterase Point of care testing: Urine Dip Bedside Urine Glucose Negative Bedside Urine Bilirubin - Negative Bedside Urine Ketone - Negative Urine Specific Ly[place] 1.03 Bedside Urine Occult Blood +++ Bedside Urine pH 5.5 Bedside Urine Protein + 30 Bedside Urine Urobilinogen - Negative Bedside Urine Nitrite - Negative Bedside Urine Leukocytes +/- [address] scan - abdomen/pelvis: Radiologist's Impression: PROCEDURE: CT KIDNEY URETER BLADDER (KUB) INDICATIONS: Left ureteral stent in place with pain. TECHNIQUE: Axial sections were acquired from the lung bases to the pubic symphysis. Coronal and sagittal reformats were performed. For radiation dose reduction, the following was used: automated exposure control, adjustment of mA and/or kV according to patient size. COMPARISON: [facility], CT, KIDNEY/ URETER/BLADDER, 06/19/2016, 21:58. [facility], CT, CT ABDOMEN PELVIS W CON, 08/06/2024, 9:09. FINDINGS: Image quality: Diagnostic. Lower Chest: Heart is mildly enlarged with minimal effusion. URINARY: Right Kidney: No stones or hydronephrosis. Right Ureter: No hydroureter. Left Kidney: Ureterovesicular stent is present. No visualized renal stone. Left Ureter: Previously visualized ureteral stone is no longer identified. Bladder: Normal wall thickness. No stones. ABDOMEN: Liver: No contour-deforming solid mass. Gallbladder: No radiopaque gallstones or wall thickening. Biliary ducts: No biliary dilation. Pancreas: No ductal dilation. Spleen: Splenic cyst. Adrenal Glands: No adrenal nodules. Stomach and Bowel: Normal colonic caliber, without significant wall thickening. Peritoneum: No abnormal intraperitoneal fluid. No free air. Ventral Wall: No hernia. Abdominal Nodes: No enlarged retroperitoneal or mesenteric lymph nodes. Vessels: Aorta and inferior vena cava are normal in size. PELVIS: Pelvic Organs: Very minimal appearance of stranding adjacent to the left adnexa. Pelvic Nodes: Unremarkable. Miscellaneous: No inguinal hernias are seen. Bones: Unremarkable. IMPRESSION: No obstructing stones or hydronephrosis. Left ureterovesicular stent. Very minimal stranding adjacent to the left adnexa of uncertain etiology. No cyst is identified. MDM Narrative Medical decision making narrative: No leukocytosis. Afebrile. Kidney functions unremarkable. Has hematuria but no other signs of infection. CT scan shows that the stent is in place without signs of obstruction. The stone that was present is now gone. No fevers. The rash under her left breast is most consistent with a yeast infection. Unrelated to her urologic issues over the past couple days. Plan will be to prescribe pain medications and nausea medicine. Will have her contact the urologist office tomorrow for follow-up. She was given return precautions. She expressed understanding and agreement. Discharge Plan Departure Patient Disposition: Home Clinical Impression: S/P ureteral stent placement, Post-operative pain, Rash Activity Restrictions/Additional Instructions: I recommend that you contact the urologist office tomorrow for a follow-up. Continue all of the postprocedure instructions given to you by the urologist. Contact your primary doctor for a follow-up. Return to the emergency department for new symptoms. Prescriptions: New nystatin 100,000 unit/gram powder 1 applic topical TID Qty: 15 2RF No Action prazosin 2 mg capsule See Rx Instructions .ROUTE .COMPLEX Qty: 360 3RF Dose Instruction: TAKE 3 CAPSULES BY MOUTH BEDTIME FOR NIGHTMARES Rx Instructions: TAKE 4 CAPSULES BY MOUTH BEDTIME FOR NIGHTMARES duloxetine [Cymbalta] 60 mg capsule,delayed release(DR/EC) 60 mg PO BID Qty: 180 3RF (DME) Depends See Rx Instructions .Route .MEDSUPPLY Qty: 1 6RF Rx Instructions: As directed omeprazole 40 mg capsule,delayed release(DR/EC) 40 mg PO DAILY Qty: 90 3RF lamotrigine 200 mg tablet 200 mg PO BEDTIME Qty: 90 1RF gabapentin 600 mg tablet 1,200 mg PO TID Qty: 540 0RF quetiapine 50 mg tablet See Rx Instructions .ROUTE .COMPLEX Qty: 450 0RF Dose Instruction: PO ONCE HS; Rx Instructions: Take 1 tab PO QAM (50mg) and 4 tabs PO QHS (200mg) methocarbamol 500 mg tablet 500 mg PO TID PRN (Reason: muscle spasm) Qty: 90 1RF Rx Instructions: transition from SOMA clonazepam 1 mg tablet 1 mg PO TID PRN (Reason: severe anxiety) Qty: 70 0RF Rx Instructions: No early fill. Dose to last 30 days. oxycodone 5 mg tablet 5 - 10 mg PO Q6H PRN (Reason: pain) Qty: 120 0RF Rx Instructions: This is for acute kidney stone and in addition to her chronic Percocet from Dr. Zimmer ([facility] [place]) Disabled Parking Permint See Rx Instructions .ROUTE .MEDSUPPLY Qty: 1 0RF Rx Instructions: I find this patient to be medically disabled and qualified for Disabled Parking as indicated and signed on the Accompanying Disabled Parking Application for individuals. phenazopyridine [Pyridium] 200 mg tablet 200 mg PO TID PRN (Reason: Bladder irritation) Qty: 30 0RF Referrals: Jey Zimmer DO [Primary Care Provider] - Stand Alone Forms: Patient Portal/API/Survey
[2024-08-27 21:34] LABS: Add Manual Diff / Slide Review NO; Basophils Absolute Auto 100 /uL (0-100); Basophils Percent Auto 1.1 % (0-2); Eosinophils Absolute Auto 500 /uL (0-450); Eosinophils Percent Auto 6.6 % (2-4); Hematocrit 32.9 % (36-46); Hemoglobin 10.9 g/dL (12.0-16.0); Lymphocytes Absolute Auto 1600 /uL (1100-4500); Lymphocytes Percent Auto 22.2 % (25-40); Mean Corpuscular HGB Conc 33.3 % (30-36); Mean Corpuscular Hemoglobin 28.3 PG (26-34); Mean Corpuscular Volume 85.1 fL (80-100); Monocytes Absolute Auto 500 /uL (0-900); Monocytes Percent Auto 6.9 % (3-14); Neutrophils Absolute Auto 4700 /uL (1500-7000); Neutrophils Percent Auto 63.2 % (50-75); Platelet Count 317 X10^3/uL (150-400); Red Blood Cell Count 3.86 X10^6/uL (4.0-5.2); Red Cell Distribution Width 16.2 % (11.6-14.8); White Blood Cell Count 7.4 X10^3/uL (4.5-11.0)
[2024-08-27 21:40] LABS: Alanine Aminotransferase 22 IU/L (<35); Albumin 3.5 g/dL (3.5-5.0); Albumin Globulin Ratio 1.1 (1.0-2.8); Alkaline Phosphatase 74 U/L (38-126); Aspartate Aminotransferase 55 IU/L (14-36); BUN Creatinine Ratio 12.8 (6-22); Bilirubin Total 0.4 mg/dL (0.2-1.3); Blood Urea Nitrogen 11 mg/dL (7-17); Carbon Dioxide 26 mmol/L (22-32); Chloride 108 mmol/L (98-107); Estimated Glomerular Filt Rate > 60 mL/min (>60); Globulin 3.2 g/dL (1.7-4.1); Glucose 91 mg/dL (70-100); HEMOLYSIS 27 (0-50); Lipase 96 U/L (23-300); Sodium 136 mmol/L (137-145); Total Protein 6.7 g/dL (6.3-8.2)
[2024-08-27] MEDS: OXYCODONE/APAP 5/325 PREPACK 1 BOTTLE MISC (22:57)
== END 2024-08-27 23:09 | disposition home or self-care (01) ==
PROVIDERS: Emergency Provider Emergency Medicine; Family Provider Family Medicine; PCP Family Medicine
DX: G89.18 Other acute postprocedural pain (principal); R10.2 Pelvic and perineal pain; R31.9 Hematuria, unspecified; R21 Rash and other nonspecific skin eruption; Z96.0 Presence of urogenital implants
CPT/HCPCS: 36415; 74176; 80053; 81003; 81015; 83690; 85025; 87086; 99283; 99284

== ENCOUNTER → 2024-09-03 13:39 | Outpatient (CLI) | payer MEDICARE, SELFPAY ==
--- NOTE | 2024-09-03 13:41 | DI.RAD.S_ITS ---
PROCEDURE: XR KUB INDICATIONS: kidney stones TECHNIQUE: One view of the abdomen acquired. COMPARISON: [facility], CR, XR KUB, 08/17/2024, 16:42. FINDINGS: Surgical changes and devices: Left-sided ureteral stent is in its expected position. Bowel: Bowel gas pattern is normal. No pneumoperitoneum. Soft tissues: Small calcification is seen in left renal fossa measures 9 x 3 millimeter in size.. Visualized solid organ contours appear normal in size. Bones: No suspicious bony lesions. IMPRESSION: Left-sided renal calcification and left-sided ureteral stent in place. No gross free air. Dictated by: Redd Chen M.D. on 09/04/2024 at 9:39 Approved by: Redd Chen M.D. on 09/04/2024 at 9:58
== END ==
PROVIDERS: Family Provider Family Medicine; PCP Family Medicine; Referring Provider Urology; Visit Provider Urology
DX: N20.0 Calculus of kidney (principal); R30.0 Dysuria; R39.89 Other symptoms and signs involving the genitourinary system; Z96.0 Presence of urogenital implants
CPT/HCPCS: 51798; 74018; 81002; 87077; 87086; 87186; 99213

== ENCOUNTER → 2024-09-03 14:40 | Outpatient (CLI) | payer MEDICARE, SELFPAY | PROVIDERS: Family Provider Family Medicine; PCP Family Medicine; Visit Provider Urology | DX: Z96.0 Presence of urogenital implants (principal) | CPT/HCPCS: 87086 ==

== ENCOUNTER → 2024-09-29 14:12 | Outpatient (CLI) | payer MEDICARE, SELFPAY | PROVIDERS: Family Provider Family Medicine; PCP Family Medicine; Visit Provider Urology | DX: N20.0 Calculus of kidney (principal); R39.9 Unspecified symptoms and signs involving the genitourinary system; Z96.0 Presence of urogenital implants | CPT/HCPCS: 87086; 99214 ==

== ENCOUNTER 2024-10-06 06:36 | Day surgery (SDC) | payer MEDICARE, SELFPAY ==
[2024-09-29 14:22] VITALS: BMI 40.2
[2024-10-06] VITALS (8 sets, daily range): BP systolic 111–138; BP diastolic 57–86; PULSE 87–97; RESP 16–26; TEMP 36.1–36.4; O2SAT 92–100; BMI 43.0
[2024-10-06] MEDS: LACTATED RINGERS 1,000 ML 21 ML IV (07:09)
--- NOTE | 2024-10-06 07:37 | PM.PREOP ---
Pre-operative Note COVID-19 COVID-19 status: Not tested Interval Note History & Physical reviewed/Exam performed by Physician: Yes Changes to H&P: No
[2024-10-06] MEDS: CEFAZOLIN 2 GM/100 ML PREMIX 100 ML IV (07:51)
--- NOTE | 2024-10-06 07:58 | SUR.OPER ---
Supine on ESWL table, head on pillow, arms padded and tucked at sides, legs uncrossed, blanket across arms and on torso and lower body.
--- NOTE | 2024-10-06 08:31 | PM.OP.1 ---
Procedure & Clinicians Procedure: Left extracorporeal shockwave lithotripsy Same procedure as scheduled: Yes Indications: This 59-year-old female presented to the emergency department with complaint of left sided pain workup revealed a left UPJ stone. Patient underwent cystoscopy with stent placement in the stone was pushed into the kidney. The patient presents at this time for extracorporeal shockwave lithotripsy to treat the stone. Surgeon: Cisco Mancuso Click Yes if Unassisted: Yes Anesthesia Type: General Operative Notes Findings: Findings: As procedure the stone was in the left renal. This stone received a total of 2000 shocks at level 7 and appeared to fragment completely. There were no other abnormalities noted. Closure Type: not applicable Specimen(s): none sent Prosthetic devices, grafts, tissues, transplants, or devices: None placed at this procedure. Left stent already in place. Procedure in detail: Procedure in detail: After informed consent was obtained, the patient was identified brought to the operating room where she is placed in his supine position on the Lithotripter. Anesthesia was induced and maintained and a test dose of Ancef given. Patient tolerated this well and was given Ancef for an antibiotic. Ensuring an adequate level of anesthesia and after time-out and administration of antibiotic the stone was positioned via the targeting system and shock waves delivered at level 7 for a total of 2000 shocks. Periodic reimaging and re localization was performed to ensure maximal energy delivery to the stone at 2000 shock waves the head was rotated out and fluoroscopy was performed revealing the stone to be completely fragmented. At this point the patient was awakened having tolerated the procedure well. There were no complications in the patient was transferred to the postanesthesia care unit for recovery. Complications: none Post-operative Condition: stable Disposition: PACU Plan for aftercare: Patient is to be discharged to home to follow up my office in 10-14 days with a KUB. Patient is to strain her urine and save any fragments which she should bring to follow-up.
[2024-10-06] MEDS: OXYCODONE IR 5 MG TABLET 10 MG PO (08:46)
[2024-10-06] MEDS: ONDANSETRON 4 MG/2 ML INJ IV (08:46)
[2024-10-06] MEDS: ALBUTEROL 2.5 MG/3 ML NEB (ADULT) INH (08:53)
== END 2024-10-06 09:34 | disposition home or self-care (01) ==
PROVIDERS: Family Provider Family Medicine; PCP Family Medicine; Referring Provider Urology; Visit Provider Urology
PROC: (CPT 50590; principal; 2024-10-06 07:45)
DX: N20.2 Calculus of kidney with calculus of ureter (principal); G89.29 Other chronic pain; K59.00 Constipation, unspecified
CPT/HCPCS: 50590; 36415; 51798; 74176; 80053; 81001; 85025; 87077; 87086; 87186; 99284; J0690; J1100; J1171; J1885; J2250; J2405; J2704; J2765; J3010; J7613

== ENCOUNTER 2024-10-06 22:37 | Emergency (ER) | payer MEDICARE, SELFPAY ==
[2024-10-06 22:48] VITALS: BP 144/118; PULSE 99; RESP 21; TEMP 37.4; O2SAT 97; BMI 43.0
--- NOTE | 2024-10-06 23:14 | DI.CT.S_ITS ---
PROCEDURE: CT KIDNEY URETER BLADDER (KUB) INDICATIONS: left stent and stone increased pain TECHNIQUE: Axial sections were acquired from the lung bases to the pubic symphysis. Coronal and sagittal reformats were performed. For radiation dose reduction, the following was used: automated exposure control, adjustment of mA and/or kV according to patient size. COMPARISON: [facility], CT, CT KIDNEY URETER BLADDER (KUB), 08/27/2024, 21:28. [facility], CT, KIDNEY/ URETER/BLADDER, 06/19/2016, 21:58. FINDINGS: Image quality: Diagnostic. Lower Chest: No significant findings. URINARY: Kidneys and ureters: Left ureteral stent is present in expected position. There is mild residual left hydronephrosis. No left hydroureter. Mild periureteral fat stranding is present. A branching calculus versus adjacent calculi at the inferior pole of the left kidney measures up to 7 mm (approximately 400 Hounsfield units). No right renal calculus or hydronephrosis. Right ureter appears normal. Bladder: Normal wall thickness. No stones. ABDOMEN: Liver: No contour-deforming solid mass. Liver is hypoattenuating compatible with fatty infiltration. Gallbladder: No radiopaque gallstones or wall thickening. Biliary ducts: No biliary dilation. Pancreas: No ductal dilation. Spleen: Spleen is mildly enlarged. Adrenal Glands: Stable left adrenal benign adenoma. No right adrenal nodule. Stomach and Bowel: Small hiatal hernia. Normal colonic caliber, without significant wall thickening. Normal appendix. Peritoneum: No abnormal intraperitoneal fluid. No free air. Ventral Wall: No hernia. Abdominal Nodes: No enlarged retroperitoneal or mesenteric lymph nodes. Vessels: Aorta and inferior vena cava are normal in size. PELVIS: Pelvic Organs: Unremarkable. Pelvic Nodes: Unremarkable. Miscellaneous: No inguinal hernias are seen. Bones: Unremarkable. IMPRESSION: 1. Left ureteral stent with mild left hydronephrosis. Mild left perinephric stranding without hydroureter. 2. Nonobstructing 7 mm calculus at the inferior pole of the left kidney. 3. Mild hepatic steatosis. 4. Splenomegaly. 5. Benign left adrenal adenoma. Approved by: Sly Silva M.D. on 10/07/2024 at 0:00
[2024-10-06] MEDS: SODIUM CHLORIDE 0.9% 1,000 ML 1000 ML IV (23:20)
[2024-10-06] MEDS: HYDROMORPHONE 1 MG INJ IV (23:20)
[2024-10-06 23:21] LABS: Add Manual Diff / Slide Review NO; Basophils Absolute Auto 0 /uL (0-100); Basophils Percent Auto 0.2 % (0-2); Eosinophils Absolute Auto 0 /uL (0-450); Hematocrit 31.7 % (36-46); Hemoglobin 10.6 g/dL (12.0-16.0); Lymphocytes Absolute Auto 400 /uL (1100-4500); Lymphocytes Percent Auto 3.2 % (25-40); Mean Corpuscular HGB Conc 33.3 % (30-36); Mean Corpuscular Hemoglobin 27.2 PG (26-34); Mean Corpuscular Volume 81.5 fL (80-100); Monocytes Absolute Auto 600 /uL (0-900); Monocytes Percent Auto 5.7 % (3-14); Neutrophils Absolute Auto 9900 /uL (1500-7000); Neutrophils Percent Auto 90.9 % (50-75); Platelet Count 275 X10^3/uL (150-400); Red Blood Cell Count 3.89 X10^6/uL (4.0-5.2); Red Cell Distribution Width 15.1 % (11.6-14.8); White Blood Cell Count 10.9 X10^3/uL (4.5-11.0)
[2024-10-06] MEDS: KETOROLAC 30 MG/ML VIAL 15 MG IV (23:21)
[2024-10-06 23:24] VITALS: PULSE 88; RESP 18; O2SAT 94
[2024-10-06 23:25] LABS: Alanine Aminotransferase 40 IU/L (<35); Albumin 4.1 g/dL (3.5-5.0); Albumin Globulin Ratio 1.2 (1.0-2.8); Alkaline Phosphatase 115 U/L (38-126); Aspartate Aminotransferase 45 IU/L (14-36); BUN Creatinine Ratio 11.2 (6-22); Bilirubin Total 0.8 mg/dL (0.2-1.3); Blood Urea Nitrogen 15 mg/dL (7-17); Calcium 9.5 mg/dL (8.4-10.2); Carbon Dioxide 22 mmol/L (22-32); Chloride 103 mmol/L (98-107); Estimated Glomerular Filt Rate 46 mL/min (>60); Globulin 3.4 g/dL (1.7-4.1); Glucose 124 mg/dL (70-100); HEMOLYSIS 32 (0-50); Sodium 135 mmol/L (137-145); Total Protein 7.5 g/dL (6.3-8.2)
[2024-10-06 23:37] LABS: Appearance Urine UA SL CLOUDY; Bilirubin Urine UA NEGATIVE (NEGATIVE); Color Urine UA YELLOW; Glucose Urine UA NEGATIVE (Negative); Ketones Urine UA NEGATIVE (NEGATIVE); Leukocyte Esterase Urine UA 2+ (NEGATIVE); Nitrite Urine UA NEGATIVE (Negative); Occult Blood Urine UA 3+ (Negative); Protein Urine UA 1+ (Negative); Urobilinogen Urine UA 0.2 E.U./dL (0.2)
[2024-10-06 23:38] VITALS: PULSE 82; O2SAT 95
[2024-10-06 23:38] LABS: Bacteria Urine Many (>30); RBC Urine 30-100/HPF (0-5/HPF); Squamous Epithelial Cell Urine 0-1 /HPF (0-5/HPF); Urine Volume 10mL (spun); WBC Urine 30-100/HPF (0-5/HPF); pH Urine UA 7.5 (4.5-8.0)
[2024-10-06 23:39] VITALS: BP 122/53; PULSE 83; O2SAT 93
[2024-10-06 23:39] LABS: Culture Indicated Urine Specimen Cultured
[2024-10-07] VITALS: BP 117/55; PULSE 88; O2SAT 93
--- NOTE | 2024-10-07 00:21 | ED_ITS ---
HPI - Abdominal Pain General Chief Complaint: Abdominal Pain Stated Complaint: px post kidney stone blasting Time Seen by Provider: 10/06/24 23:10 Source: patient and family Mode of arrival: Wheelchair History of Present Illness HPI narrative: Patient is a 59-year-old female who has a known left sided kidney stone. She is followed by Dr. Mancuso the urology clinic. She had lithotripsy today she has a left ureteral stent placed. She was having increasing pain now. Feels like she can not quite empty her bladder. No nausea or vomiting. Feels like pain is out of control at this time. She denies any fever or chills. Related Data Previous Rx's Medication Instructions Recorded Depends #1 ea 09/27/21 duloxetine 60 mg capsule,delayed 60 mg PO BID #180 caps 09/16/23 release (Cymbalta) omeprazole 40 mg capsule,delayed 40 mg PO DAILY #90 caps 12/17/23 release lamotrigine 200 mg tablet 200 mg PO BEDTIME #90 tabs 02/26/24 Disabled Parking Permint #1 ea 05/18/24 methocarbamol 500 mg tablet 500 mg PO TID PRN muscle spasm #90 08/03/24 tabs phenazopyridine 200 mg tablet 200 mg PO TID PRN Bladder 08/18/24 (Pyridium) irritation #30 tabs nystatin 100,000 unit/gram topical 1 applic topical TID #15 grams 08/27/24 powder phenazopyridine 200 mg tablet 200 mg PO TID PRN pain, bladder 08/31/24 (Pyridium) irritation #30 tabs oxycodone 5 mg tablet 5 - 10 mg (1 - 2 x 5 mg) PO Q6H 09/10/24 PRN pain #120 tabs nitrofurantoin 100 mg PO BID #30 caps 09/11/24 monohydrate/macrocrystals 100 mg capsule quetiapine 200 mg tablet 200 mg PO BEDTIME #90 tabs 09/21/24 quetiapine 50 mg tablet 50 mg PO DAILY insomnia #90 tabs 09/21/24 clonazepam 1 mg tablet 1 mg PO TID PRN severe anxiety #70 09/22/24 tabs prazosin 2 mg capsule See Rx Instructions .Route 09/24/24 .COMPLEX #360 caps gabapentin 600 mg tablet 1,200 mg (2 x 600 mg) PO TID #90 10/06/24 tabs nitrofurantoin 100 mg PO Q12H 7 days #14 caps 10/07/24 monohydrate/macrocrystals 100 mg capsule (Macrobid) oxycodone-acetaminophen 5 mg-325 1 tab PO Q6H PRN pain #10 tabs 10/07/24 mg tablet (Percocet) Allergies Allergy/AdvReac Type Severity Reaction Status Date / Time Penicillins Allergy Severe THROAT Verified 10/06/24 06:52 SWELLING Patient History Medical History COPD (chronic obstructive pulmonary disease) History of stroke Neuropathy Retained ureteral stent Left renal stone Hx of migraine headaches Acute bilateral knee pain Pain management contract agreement Strain of gluteus medius of left lower extremity Recurrent sinusitis Lumbar spine pain Foot pain Cervical spine disease Bipolar disorder Cyst of breast, diffuse fibrocystic Peptic ulcer disease Gastric ulcer Adenoma of left adrenal gland (2011) Cervical polyp (08/2012) Hearing loss CTS (carpal tunnel syndrome) Chronic back pain Fibromyalgia ADHD (attention deficit hyperactivity disorder) Anxiety Depression PTSD (post-traumatic stress disorder) Asthma Colon polyps Acute viral sinusitis Kidney infection Abscess of skin Shingles Surgical History Hx of appendectomy Hx of cystoscopy (08/18/24) Hx of tubal ligation Hx of breast biopsy History of lumbar surgery (~1989) History of endometrial ablation (10/2012) History of colonoscopy (07/2013) History of esophagogastroduodenoscopy (EGD) (10/26/13) History of esophagogastroduodenoscopy (EGD) (03/2013) History of cystoscopy (07/2013) Family History Aunt Cancer Brother Cancer Mother CVA (cerebral vascular accident) Grandmother Diabetes mellitus Uncle Diabetes mellitus Daughter Thyroid disorder Son Thyroid disorder Social History marital status: number of children: 4 household members: spouse Smoking Status: Current some day smoker Tobacco: How many years used: 2 alcohol intake: current substance use type: does not use caffeine: Yes Type(s) of exercise: decline to answer Smoking Status: Current some day smoker tobacco type: cigarettes alcohol intake frequency: a few times a month Exam Initial Vital Signs Initial Vital Signs: Vital Signs Temperature 99.4 F 10/06/24 22:48 Pulse Rate 99 H 10/06/24 22:48 Respiratory Rate 21 10/06/24 22:48 Blood Pressure 144/118 H 10/06/24 22:48 Pulse Oximetry 97 10/06/24 22:48 Oxygen Delivery Method Room Air 10/06/24 22:48 GENERAL: Tearful awake alert 59-year-old female HEENT: Head atraumatic,EOMI, pupils reactive, face symmetric, moist mucous membranes CARDIOVASCULAR: Regular rate and rhythm without murmurs, rubs or gallops. RESPIRATORY: Breath sounds equal bilaterally, no wheezes rales or rhonchi. ABDOMEN: Soft, mild left lower quadrant pain mild guarding no rebound no distention : No CVA tenderness EXTREMITIES: Normal range of motion, no clubbing or edema. Neurovascularly intact NEUROLOGICAL: Alert and oriented x4.Normal gait and speech. SKIN: Warm, dry, no laceration, no petechiae, no rashes or lesions. Course Orders Ordered: ED Orders 10/06/24 22:58 CBC Auto Diff [Complete Blood Count AUTO DIFF] Stat CMP [Comprehensive Metabolic Panel] Stat 10/06/24 23:14 CT kidney ureter bladder (KUB) Stat 10/06/24 23:26 Urinalysis and Microscopic Stat Urine Culture Stat Discontinued Medications Hydromorphone HCl (Hydromorphone 1 Mg Inj) 1 mg IV NOW ONE Stop: 10/06/24 23:15 Last Admin: 10/06/24 23:20 Dose: 1 mg Documented By: AIYANA Hydromorphone HCl (Hydromorphone 0.5 Mg Inj) 0.5 mg IV NOW ONE Stop: 10/07/24 00:55 Last Admin: 10/07/24 01:07 Dose: 0.5 mg Documented By: AIYANA Sodium Chloride (Normal Saline 0.9%) 1,000 mls @ 1,000 mls/hr IV BOLUS ONE Stop: 10/07/24 00:09 Last Infusion: 10/07/24 00:49 Dose: Infused Documented By: Admin: 10/06/24 23:20 Dose: 1,000 mls/hr Documented By: AIYANA Ketorolac Tromethamine (Ketorolac 30 Mg/Ml Vial) 15 mg IV NOW ONE Stop: 10/06/24 23:11 Last Admin: 10/06/24 23:21 Dose: 15 mg Documented By: AIYANA Nitrofurantoin Macrocrystals (Nitrofurantoin Er 100 Mg Capsule) 100 mg PO NOW ONE Stop: 10/07/24 00:45 Last Admin: 10/07/24 01:07 Dose: 100 mg Documented By: AIYANA Oxycodone/Acetaminophen (Oxycodone/Apap 5/325 Prepack) 1 bottle MISC NOW ONE Stop: 10/07/24 00:45 Oxycodone/Acetaminophen (Oxycodone/Apap 5/325 Prepack) 1 bottle MISC DIRECTED ONE Stop: 10/07/24 00:57 Last Admin: 10/07/24 01:07 Dose: 1 bottle Documented By: AIYANA Vital Signs Vital signs: Vital Signs - 8 hr 10/06/24 22:48 10/06/24 23:24 10/06/24 23:38 Temperature 99.4 F Pulse Rate 99 H 88 82 Respiratory Rate 21 18 Blood Pressure 144/118 H Pulse Oximetry 97 94 95 Oxygen Delivery Method Room Air 10/06/24 23:39 10/06/24 23:39 10/07/24 00:00 Temperature Pulse Rate 83 Respiratory Rate Blood Pressure 122/53 L 117/55 L Pulse Oximetry 93 Oxygen Delivery Method 10/07/24 00:00 10/07/24 00:30 10/07/24 00:30 Temperature Pulse Rate 88 86 Respiratory Rate Blood Pressure 110/53 L Pulse Oximetry 93 96 Oxygen Delivery Method Room Air 10/07/24 01:00 10/07/24 01:00 Temperature Pulse Rate 79 Respiratory Rate 22 Blood Pressure 115/53 L Pulse Oximetry 96 Oxygen Delivery Method Room Air MDM - Abdominal Pain Lab Data 10/06/24 22:58 10/06/24 22:58 Labs: Lab Results 10/06/24 10/06/24 Range/Units 22:58 23:26 WBC 10.9 (4.5-11.0) X10^3/uL RBC 3.89 L (4.0-5.2) X10^6/uL Hgb 10.6 L (12.0-16.0) g/dL Hct 31.7 L (36-46) % MCV 81.5 (80-100) fL MCH 27.2 (26-34) PG MCHC 33.3 (30-36) % RDW 15.1 H (11.6-14.8) % Plt Count 275 (150-400) X10^3/uL Neut % (Auto) 90.9 H (50-75) % Lymph % (Auto) 3.2 L (25-40) % [place] % (Auto) 5.7 (3-14) % Eos % (Auto) 0.0 L (2-4) % Baso % (Auto) 0.2 (0-2) % Neut # (Auto) 9900 H (2477-0530) /uL Lymph # (Auto) 400 L (0011-6543) /uL [place] # (Auto) 600 (0-900) /uL Eos # (Auto) 0 (0-450) /uL Baso # (Auto) 0 (0-100) /uL Sodium 135 L (137-145) mmol/L Potassium 4.0 (3.4-5.1) mmol/L Chloride 103 (98-107) mmol/L Carbon Dioxide 22 (22-32) mmol/L BUN 15 (7-17) mg/dL Creatinine 1.34 H (0.52-1.04) mg/dL Estimated GFR 46 L (>60) mL/min BUN/Creatinine Ratio 11.2 (6-22) Glucose 124 H (70-100) mg/dL Calcium 9.5 (8.4-10.2) mg/dL Total Bilirubin 0.8 (0.2-1.3) mg/dL AST 45 H (14-36) IU/L ALT 40 H (<35) IU/L Alkaline Phosphatase 115 (38-126) U/L Total Protein 7.5 (6.3-8.2) g/dL Albumin 4.1 (3.5-5.0) g/dL Globulin 3.4 (1.7-4.1) g/dL Albumin/Globulin Ratio 1.2 (1.0-2.8) Urine Color Yellow Urine Appearance Sl cloudy Urine pH 7.5 (4.5-8.0) Ur Specific [place] 1.020 (1.000-1.035) Urine Protein 1+ H (Negative) Urine Glucose (UA) Negative (Negative) g/dL Urine Ketones Negative (NEGATIVE) Urine Occult Blood 3+ H (Negative) Urine Nitrate Negative (Negative) Urine Bilirubin Negative (NEGATIVE) Urine Urobilinogen 0.2 (0.2) E.U./dL Ur Leukocyte Esterase 2+ H (NEGATIVE) Urine RBC 30-100/hpf H (0-5/HPF) Urine WBC 30-100/hpf H (0-5/HPF) Ur Squamous Epith Cells 0-1 /hpf (0-5/HPF) Urine Bacteria Many (>30) H (None) Ur Culture Indicated? Specimen cultured Vol Urine Centrifuged 10ml (spun) Imaging Data CT scan - abdomen/pelvis: Radiologist's Impression: PROCEDURE: CT KIDNEY URETER BLADDER (KUB) INDICATIONS: left stent and stone increased pain TECHNIQUE: Axial sections were acquired from the lung bases to the pubic symphysis. Coronal and sagittal reformats were performed. For radiation dose reduction, the following was used: automated exposure control, adjustment of mA and/or kV according to patient size. COMPARISON: [facility], CT, CT KIDNEY URETER BLADDER (KUB), 08/27/2024, 21:28. [facility], CT, KIDNEY/ URETER/BLADDER, 06/19/2016, 21:58. FINDINGS: Image quality: Diagnostic. Lower Chest: No significant findings. URINARY: Kidneys and ureters: Left ureteral stent is present in expected position. There is mild residual left hydronephrosis. No left hydroureter. Mild periureteral fat stranding is present. A branching calculus versus adjacent calculi at the inferior pole of the left kidney measures up to 7 mm (approximately 400 Hounsfield units). No right renal calculus or hydronephrosis. Right ureter appears normal. Bladder: Normal wall thickness. No stones. ABDOMEN: Liver: No contour-deforming solid mass. Liver is hypoattenuating compatible with fatty infiltration. Gallbladder: No radiopaque gallstones or wall thickening. Biliary ducts: No biliary dilation. Pancreas: No ductal dilation. Spleen: Spleen is mildly enlarged. Adrenal Glands: Stable left adrenal benign adenoma. No right adrenal nodule. Stomach and Bowel: Small hiatal hernia. Normal colonic caliber, without significant wall thickening. Normal appendix. Peritoneum: No abnormal intraperitoneal fluid. No free air. Ventral Wall: No hernia. Abdominal Nodes: No enlarged retroperitoneal or mesenteric lymph nodes. Vessels: Aorta and inferior vena cava are normal in size. PELVIS: Pelvic Organs: Unremarkable. Pelvic Nodes: Unremarkable. Miscellaneous: No inguinal hernias are seen. Bones: Unremarkable. IMPRESSION: 1. Left ureteral stent with mild left hydronephrosis. Mild left perinephric stranding without hydroureter. 2. Nonobstructing 7 mm calculus at the inferior pole of the left kidney. 3. Mild hepatic steatosis. 4. Splenomegaly. 5. Benign left adrenal adenoma. Approved by: Sly Silva M.D. on 10/07/2024 at 0:00 MDM Narrative Medical decision making narrative: Patient 59-year-old female who recently had a left ureteral stent placed for large left kidney stone presenting today with increasing pain after lithotripsy procedure. Having painful frequent urination. She was found to have a UTI with leukocytes and bacteria. She has no evidence of sepsis she has no leukocytosis. She was found to be mildly dehydrated with a creatinine of 1.34 previously 0.86. All other labs have been reviewed and within normal limits CT shows ureteral stent in place with left perinephric stranding and no hydroureter Patient was given a L of fluid Toradol and Dilaudid. She is allergic to penicillin dose of Macrobid is started here in the ED. She is overall feeling better after medications. Feels like going home with pain meds. She was given Percocet as well At this time follow-up with urology Dr. Mancuso Discharge Plan Departure Patient Disposition: Home Clinical Impression: UTI (urinary tract infection), Kidney stone on left side Instructions: DI for Urinary Tract Infection (UTI) Activity Restrictions/Additional Instructions: *You have been diagnosed with UTI kidney stone *What to do: Increase fluids as tolerated take pain medications *Continue to take medications as directed Macrobid 100 mg twice a day for 7 days Percocet 1 tab every 4-6 hours if needed for pain *Follow up with your primary care provider in 2-3 days or call [phone] Mancuso *Return to ER if you should have increasing pain nausea vomiting [or] any new, worsening or concerning symptoms CONTROLLED SUBSTANCE DISCHARGE (Narcotoic/benzodiazepine/Flexeril/Phenergan) 1. You have been prescribed narcotic medications, it does have acetaminophen/Tylenol/paracetamol in it, DO NOT TAKE MORE THAN 4,00mg in 24 hours of Tylenol. TRAMADOL DOES NOT CONTAIN TYLENOL 2. Please understand that we cannot provide further refills of narcotics, benzodiazepines or controlled substances through the ED and her pain management will need to be through your provider. 3. While on these medications you cannot drive or operate heavy machinery. 4. You cannot sign legal documents or perform any duties such as this. 5. As long as you're taking opiate pain medications he should also be taking a stool softener such as Colace, Dulcolax, MiraLAX or prune juice, to help avoid constipation. Prescriptions: New oxycodone-acetaminophen [Percocet] 5-325 mg tablet 1 tab PO Q6H PRN (Reason: pain) Qty: 10 0RF nitrofurantoin monohyd/m-cryst [Macrobid] 100 mg capsule 100 mg PO Q12H 7 Days Qty: 14 0RF Rx Instructions: must administer with a meal/food No Action duloxetine [Cymbalta] 60 mg capsule,delayed release(DR/EC) 60 mg PO BID Qty: 180 3RF (DME) Depends See Rx Instructions .Route .MEDSUPPLY Qty: 1 6RF Rx Instructions: As directed omeprazole 40 mg capsule,delayed release(DR/EC) 40 mg PO DAILY Qty: 90 3RF lamotrigine 200 mg tablet 200 mg PO BEDTIME Qty: 90 1RF methocarbamol 500 mg tablet 500 mg PO TID PRN (Reason: muscle spasm) Qty: 90 1RF Rx Instructions: transition from SOMA phenazopyridine [Pyridium] 200 mg tablet 200 mg PO TID PRN (Reason: pain, bladder irritation) Qty: 30 0RF oxycodone 5 mg tablet 5 - 10 mg PO Q6H PRN (Reason: pain) Qty: 120 0RF Rx Instructions: This is for acute kidney stone and in addition to her chronic Percocet from Dr. Zimmer nitrofurantoin monohyd/m-cryst 100 mg capsule 100 mg PO BID Qty: 30 1RF Rx Instructions: must administer with a meal/food quetiapine 50 mg tablet 50 mg PO DAILY Qty: 90 3RF quetiapine 200 mg tablet 200 mg PO BEDTIME Qty: 90 3RF clonazepam 1 mg tablet 1 mg PO TID PRN (Reason: severe anxiety) Qty: 70 0RF Rx Instructions: No early fill. Dose to last 30 days. prazosin 2 mg capsule See Rx Instructions .ROUTE .COMPLEX Qty: 360 0RF Dose Instruction: TAKE 3 CAPSULES BY MOUTH BEDTIME FOR NIGHTMARES Rx Instructions: TAKE 4 CAPSULES BY MOUTH BEDTIME FOR NIGHTMARES gabapentin 600 mg tablet 1,200 mg PO TID Qty: 90 0RF (DME) Disabled Parking Permint See Rx Instructions .ROUTE .MEDSUPPLY Qty: 1 0RF Rx Instructions: I find this patient to be medically disabled and qualified for Disabled Parking as indicated and signed on the Accompanying Disabled Parking Application for individuals. nystatin 100,000 unit/gram powder 1 applic topical TID Qty: 15 2RF phenazopyridine [Pyridium] 200 mg tablet 200 mg PO TID PRN (Reason: Bladder irritation) Qty: 30 0RF Referrals: Jey Zimmer DO [Primary Care Provider] - Stand Alone Forms: Patient Portal/API/Survey
[2024-10-07 00:30] VITALS: BP 110/53; PULSE 86; O2SAT 96
[2024-10-07 01:00] VITALS: BP 115/53; PULSE 79; RESP 22; O2SAT 96
[2024-10-07] MEDS: OXYCODONE/APAP 5/325 PREPACK 1 BOTTLE MISC (01:07)
[2024-10-07] MEDS: NITROFURANTOIN ER 100 MG CAPSULE PO (01:07)
[2024-10-07] MEDS: HYDROMORPHONE 0.5 MG INJ IV (01:07)
== END 2024-10-07 01:22 | disposition home or self-care (01) ==
PROVIDERS: Emergency Provider Emergency Medicine; Family Provider Family Medicine; PCP Family Medicine
DX: N39.0 Urinary tract infection, site not specified (principal); N20.0 Calculus of kidney; B96.20 Unspecified Escherichia coli [E. coli] as the cause of diseases classified elsewhere; E86.0 Dehydration; Z88.0 Allergy status to penicillin; Z98.890 Other specified postprocedural states
CPT/HCPCS: 36415; 51798; 74176; 80053; 81001; 85025; 87086; J1171; J1885

== ENCOUNTER → 2024-10-22 07:22 | Outpatient (CLI) | payer MEDICARE, SELFPAY ==
--- NOTE | 2024-10-22 07:23 | DI.RAD.S_ITS ---
PROCEDURE: XR KUB INDICATIONS: Follow-up lithotripsy TECHNIQUE: One view of the abdomen acquired. COMPARISON: [facility], , XR KUB, 09/03/2024, 13:44. FINDINGS: Surgical changes and devices: None. Bowel: Bowel gas pattern is normal. Soft tissues: Left ureteral stent is stable in position. Small calcific densities overlying the inferior left renal pole appear to pee more fragmented than on the previous exam. A nonobstructive bowel gas pattern is noted. Visualized solid organ contours appear normal in size. Bones: No suspicious bony lesions. IMPRESSION: Appearance of fragmented calcific densities overlying the left inferior renal pole status post lithotripsy. Left ureteral stent unchanged in position. Dictated by: Juan Carlos Benz M.D. on 10/22/2024 at 17:28 Approved by: Juan Carlos Benz M.D. on 10/22/2024 at 17:30
== END ==
PROVIDERS: Family Provider Family Medicine; PCP Family Medicine; Referring Provider Urology; Visit Provider Urology
DX: Z87.442 Personal history of urinary calculi (principal); Z96.0 Presence of urogenital implants; Z09 Encounter for follow-up examination after completed treatment for conditions other than malignant neoplasm; R39.9 Unspecified symptoms and signs involving the genitourinary system
CPT/HCPCS: 74018; 87086; 99214

== ENCOUNTER → 2024-10-22 08:48 | Outpatient (CLI) | payer MEDICARE, SELFPAY | PROVIDERS: Family Provider Family Medicine; PCP Family Medicine; Visit Provider Urology | DX: R39.9 Unspecified symptoms and signs involving the genitourinary system (principal) | CPT/HCPCS: 87086 ==

== ENCOUNTER 2024-10-31 11:09 | Emergency (ER) | payer MEDICARE, SELFPAY ==
[2024-10-31] VITALS (11 sets, daily range): BP systolic 115–178; BP diastolic 56–93; PULSE 52–76; RESP 21–24; TEMP 37.1; O2SAT 91–98
[2024-10-31] MEDS: KETOROLAC 30 MG/ML VIAL 15 MG IV (11:57)
[2024-10-31] MEDS: ONDANSETRON 4 MG/2 ML INJ IV (11:57)
[2024-10-31 12:03] LABS: Add Manual Diff / Slide Review NO; Basophils Absolute Auto 100 /uL (0-100); Basophils Percent Auto 1.2 % (0-2); Eosinophils Absolute Auto 400 /uL (0-450); Eosinophils Percent Auto 9.4 % (2-4); Hematocrit 35.4 % (36-46); Hemoglobin 11.8 g/dL (12.0-16.0); Lymphocytes Absolute Auto 900 /uL (1100-4500); Lymphocytes Percent Auto 19.2 % (25-40); Mean Corpuscular HGB Conc 33.3 % (30-36); Mean Corpuscular Hemoglobin 26.9 PG (26-34); Mean Corpuscular Volume 80.8 fL (80-100); Monocytes Absolute Auto 400 /uL (0-900); Monocytes Percent Auto 7.9 % (3-14); Neutrophils Absolute Auto 2800 /uL (1500-7000); Neutrophils Percent Auto 62.3 % (50-75); Platelet Count 306 X10^3/uL (150-400); Red Blood Cell Count 4.38 X10^6/uL (4.0-5.2); Red Cell Distribution Width 15.3 % (11.6-14.8); White Blood Cell Count 4.5 X10^3/uL (4.5-11.0)
--- NOTE | 2024-10-31 12:04 | EKG_ITS ---
[place] [id number] [place] [id number] Test Date: 2024-10-31 Pat Name: Lizeth Trevino Department: [facility] Room: Gender: Female Cleat Feeder: ÁNGELA : 1965 Requested By: Order Number: [id number] Reading MD: Harry Cadena Measurements Intervals [place] Rate: 51 P: 28 MI: 156 QRS: 54 QRSD: 82 T: 67 QT: 440 QTc: 405 Interpretive Statements Sinus bradycardia Nonspecific ST abnormality Electronically Signed On 11-01-2024 18:57:33 PST by Harry Cadena
[2024-10-31 12:12] LABS: Alanine Aminotransferase 21 IU/L (<35); Albumin 4.2 g/dL (3.5-5.0); Albumin Globulin Ratio 1.4 (1.0-2.8); Alkaline Phosphatase 84 U/L (38-126); Aspartate Aminotransferase 34 IU/L (14-36); BUN Creatinine Ratio 14.1 (6-22); Bilirubin Total 0.5 mg/dL (0.2-1.3); Blood Urea Nitrogen 11 mg/dL (7-17); Calcium 9.4 mg/dL (8.4-10.2); Carbon Dioxide 23 mmol/L (22-32); Chloride 109 mmol/L (98-107); Estimated Glomerular Filt Rate > 60 mL/min (>60); Globulin 3.1 g/dL (1.7-4.1); Glucose 99 mg/dL (70-100); HEMOLYSIS 28 (0-50); Lipase 70 U/L (23-300); Potassium 3.8 mmol/L (3.4-5.1); Sodium 140 mmol/L (137-145); Total Protein 7.3 g/dL (6.3-8.2)
[2024-10-31 12:22] LABS: Bacteria Urine Moderate (10-30); RBC Urine 5-10/HPF (0-5/HPF); Squamous Epithelial Cell Urine 5-10 /HPF (0-5/HPF); Urine Volume 10mL (spun); WBC Urine 30-100/HPF (0-5/HPF)
--- NOTE | 2024-10-31 14:03 | ED_ITS ---
HPI - General Adult General Chief complaint: Urogenital-Female Stated complaint: Kidney stone/inflamation Left Breast Time Seen by Provider: 10/31/24 14:03 Source: patient and family Mode of arrival: Wheelchair History of Present Illness HPI narrative: 59-year-old female with history of kidney stones status post outpatient lithotripsy about 3 weeks ago with stent placement Dr Mancuso, subsequently developed fevers and presented in the emergency department later that same day, was treated with IV antibiotics and fluids and released home, completing 10 day course of antibiotics about 10 days ago. Now she has left-sided flank pain again, increasing pain. No fevers or chills. No nausea or vomiting. No diarrhea, black or red stools. No abdominal trauma, no new activities. Related Data Previous Rx's Medication Instructions Recorded Depends #1 ea 09/27/21 duloxetine 60 mg capsule,delayed 60 mg PO BID #180 caps 09/16/23 release (Cymbalta) omeprazole 40 mg capsule,delayed 40 mg PO DAILY #90 caps 12/17/23 release lamotrigine 200 mg tablet 200 mg PO BEDTIME #90 tabs 02/26/24 Disabled Parking Permint #1 ea 05/18/24 phenazopyridine 200 mg tablet 200 mg PO TID PRN Bladder 08/18/24 (Pyridium) irritation #30 tabs nystatin 100,000 unit/gram topical 1 applic topical TID #15 grams 08/27/24 powder phenazopyridine 200 mg tablet 200 mg PO TID PRN pain, bladder 08/31/24 (Pyridium) irritation #30 tabs nitrofurantoin 100 mg PO BID #30 caps 09/11/24 monohydrate/macrocrystals 100 mg capsule quetiapine 200 mg tablet 200 mg PO BEDTIME #90 tabs 09/21/24 quetiapine 50 mg tablet 50 mg PO DAILY insomnia #90 tabs 09/21/24 prazosin 2 mg capsule See Rx Instructions .Route 09/24/24 .COMPLEX #360 caps oxycodone 5 mg tablet 5 - 10 mg (1 - 2 x 5 mg) PO Q6H 10/10/24 PRN pain #120 tabs gabapentin 600 mg tablet 1,200 mg (2 x 600 mg) PO TID #90 10/19/24 tabs clonazepam 1 mg tablet 1 mg PO TID PRN severe anxiety #70 10/22/24 tabs methocarbamol 500 mg tablet 500 mg PO TID PRN muscle spasm #90 10/30/24 tabs ciprofloxacin HCl 500 mg tablet 500 mg PO BID 10 days #20 tabs 10/31/24 hydrocodone 5 mg-acetaminophen 325 1 tab PO Q6H PRN pain #14 tabs 10/31/24 mg tablet Allergies Allergy/AdvReac Type Severity Reaction Status Date / Time Penicillins Allergy Severe THROAT Verified 10/22/24 08:28 SWELLING Patient History Medical History COPD (chronic obstructive pulmonary disease) History of stroke Neuropathy Retained ureteral stent Left renal stone Hx of migraine headaches Acute bilateral knee pain Pain management contract agreement Strain of gluteus medius of left lower extremity Recurrent sinusitis Lumbar spine pain Foot pain Cervical spine disease Bipolar disorder Cyst of breast, diffuse fibrocystic Peptic ulcer disease Gastric ulcer Adenoma of left adrenal gland (2011) Cervical polyp (08/2012) Hearing loss CTS (carpal tunnel syndrome) Chronic back pain Fibromyalgia ADHD (attention deficit hyperactivity disorder) Anxiety Depression PTSD (post-traumatic stress disorder) Asthma Colon polyps Acute viral sinusitis Kidney infection Abscess of skin Shingles Surgical History Hx of appendectomy Hx of cystoscopy (08/18/24) Hx of tubal ligation Hx of breast biopsy History of lumbar surgery (~1989) History of endometrial ablation (10/2012) History of colonoscopy (07/2013) History of esophagogastroduodenoscopy (EGD) (10/26/13) History of esophagogastroduodenoscopy (EGD) (03/2013) History of cystoscopy (07/2013) Family History Aunt Cancer Brother Cancer Mother CVA (cerebral vascular accident) Grandmother Diabetes mellitus Uncle Diabetes mellitus Daughter Thyroid disorder Son Thyroid disorder Social History marital status: number of children: 4 household members: spouse Smoking Status: Current some day smoker Tobacco: How many years used: 2 alcohol intake: current substance use type: does not use caffeine: Yes Type(s) of exercise: decline to answer Smoking Status: Current some day smoker tobacco type: cigarettes alcohol intake frequency: a few times a month Exam Narrative Exam Narrative: GENERAL: Well-developed patient, in mild distress. HEAD: Atraumatic. Normocephalic. EYES: Pupils equal round and reactive. Extraocular motions intact. No scleral icterus. No injection or drainage. ENT: Nose without bleeding, purulent drainage. Throat without erythema, tonsillar hypertrophy or exudate. Airway patent. NECK: Trachea midline. Non tender CARDIOVASCULAR: Regular rate and rhythm without murmurs, gallops, or rubs. RESPIRATORY: Clear to auscultation. Breath sounds equal bilaterally. No wheezes, rales, or rhonchi. GASTROINTESTINAL: Obese, abdomen soft, non-tender, nondistended. EXTREMITIES: No edema or joint tenderness. BACK: Nontender without deformity or crepitance. No flank tenderness. NEURO: AOx3. Motor functions grossly nonfocal SKIN: No rash or erythema of visible areas Initial Vital Signs Initial Vital Signs: Vital Signs Temperature 98.7 F 10/31/24 11:15 Pulse Rate 76 10/31/24 11:15 Respiratory Rate 24 10/31/24 11:15 Blood Pressure 137/93 H 10/31/24 11:15 Pulse Oximetry 96 10/31/24 11:15 Oxygen Delivery Method Room Air 10/31/24 11:15 Course Orders Ordered: ED Orders 10/31/24 11:20 EKG-12 Lead Stat 10/31/24 11:37 Complete Blood Count AUTO DIFF Stat Comprehensive Metabolic Panel Stat Lipase Stat 10/31/24 12:00 Urine Culture Stat Urine Microscopic Stat 10/31/24 14:14 CT abdomen pelvis wo con Stat Discontinued Medications Hydrocodone Bitart/Acetaminophen (Hydrocodone/Acet 5/325 Tablet) 1 tab PO NOW ONE Stop: 10/31/24 17:09 Last Admin: 10/31/24 17:17 Dose: 1 tab Documented By: NURYS Ciprofloxacin (Ciprofloxacin 250 Mg Tablet) 500 mg PO NOW ONE Stop: 10/31/24 17:08 Last Admin: 10/31/24 17:17 Dose: 500 mg Documented By: NURYS Ketorolac Tromethamine (Ketorolac 30 Mg/Ml Vial) 15 mg IV NOW ONE Stop: 10/31/24 11:42 Last Admin: 10/31/24 11:57 Dose: 15 mg Documented By: NURYS Morphine Sulfate (Morphine 4 Mg/Ml Inj) 4 mg IV NOW ONE Stop: 10/31/24 14:03 Last Admin: 10/31/24 14:09 Dose: 4 mg Documented By: NURYS Ondansetron HCl (Ondansetron 4 Mg/2 Ml Inj) 4 mg IV NOW PRN PRN Reason: Nausea And Vomiting Last Admin: 10/31/24 11:57 Dose: 4 mg Documented By: NURYS Ondansetron HCl (Ondansetron 4 Mg Odt) 4 mg PO NOW PRN PRN Reason: Nausea And Vomiting Vital Signs Vital signs: Vital Signs - 8 hr 10/31/24 12:05 10/31/24 12:09 10/31/24 12:30 Pulse Rate 55 L 76 62 Respiratory Rate 24 Blood Pressure Pulse Oximetry 98 91 95 Oxygen Delivery Method Room Air 10/31/24 12:31 10/31/24 12:31 10/31/24 13:00 Pulse Rate 60 55 L Respiratory Rate 21 22 Blood Pressure 115/56 L Pulse Oximetry 95 97 Oxygen Delivery Method 10/31/24 13:01 10/31/24 13:01 10/31/24 13:30 Pulse Rate 54 L 56 L Respiratory Rate Blood Pressure 128/58 L Pulse Oximetry 96 97 Oxygen Delivery Method Room Air 10/31/24 13:45 10/31/24 13:45 10/31/24 14:00 Pulse Rate 52 L 54 L Respiratory Rate Blood Pressure 178/75 H Pulse Oximetry 98 98 Oxygen Delivery Method 10/31/24 17:26 10/31/24 17:26 Pulse Rate 56 L Respiratory Rate Blood Pressure 147/65 H Pulse Oximetry 98 Oxygen Delivery Method Medical Decision Making Lab Data Lab results reviewed: Yes I reviewed the patient's lab results. Lab results narrative: White blood cell count 4500, hemoglobin 11.8, platelets adequate. Basic metabolic panel unremarkable. Liver functions and lipase normal. Urinalysis suspicious for infection, moderate bacteria noted, urine culture requested. 10/31/24 11:37 10/31/24 11:37 Labs: Lab Results 10/31/24 10/31/24 Range/Units 11:37 12:00 WBC 4.5 (4.5-11.0) X10^3/uL RBC 4.38 (4.0-5.2) X10^6/uL Hgb 11.8 L (12.0-16.0) g/dL Hct 35.4 L (36-46) % MCV 80.8 (80-100) fL MCH 26.9 (26-34) PG MCHC 33.3 (30-36) % RDW 15.3 H (11.6-14.8) % Plt Count 306 (150-400) X10^3/uL Neut % (Auto) 62.3 (50-75) % Lymph % (Auto) 19.2 L (25-40) % [place] % (Auto) 7.9 (3-14) % Eos % (Auto) 9.4 H (2-4) % Baso % (Auto) 1.2 (0-2) % Neut # (Auto) 2800 (7084-5963) /uL Lymph # (Auto) 900 L (9154-1144) /uL [place] # (Auto) 400 (0-900) /uL Eos # (Auto) 400 (0-450) /uL Baso # (Auto) 100 (0-100) /uL Sodium 140 (137-145) mmol/L Potassium 3.8 (3.4-5.1) mmol/L Chloride 109 H (98-107) mmol/L Carbon Dioxide 23 (22-32) mmol/L BUN 11 (7-17) mg/dL Creatinine 0.78 (0.52-1.04) mg/dL Estimated GFR > 60 (>60) mL/min BUN/Creatinine Ratio 14.1 (6-22) Glucose 99 (70-100) mg/dL Calcium 9.4 (8.4-10.2) mg/dL Total Bilirubin 0.5 (0.2-1.3) mg/dL AST 34 (14-36) IU/L ALT 21 (<35) IU/L Alkaline Phosphatase 84 (38-126) U/L Total Protein 7.3 (6.3-8.2) g/dL Albumin 4.2 (3.5-5.0) g/dL Globulin 3.1 (1.7-4.1) g/dL Albumin/Globulin Ratio 1.4 (1.0-2.8) Lipase 70 (23-300) U/L Urine RBC 5-10/hpf H (0-5/HPF) Urine WBC 30-100/hpf H (0-5/HPF) Ur Squamous Epith Cells 5-10 /hpf H (0-5/HPF) Urine Bacteria Moderate (10-30) H (None) Ur Culture Indicated? TNP Vol Urine Centrifuged 10ml (spun) Urine Dip Bedside Urine Glucose Negative Bedside Urine Bilirubin - Negative Bedside Urine Ketone - Negative Urine Specific [place] 1.030 Bedside Urine Occult Blood +++ Bedside Urine pH 6.0 Bedside Urine Protein +++ 300 Bedside Urine Urobilinogen - Negative Bedside Urine Nitrite + Positive Bedside Urine Leukocytes ++ 125 Esterase Point of care testing: Urine Dip Bedside Urine Glucose Negative Bedside Urine Bilirubin - Negative Bedside Urine Ketone - Negative Urine Specific [place] 1.030 Bedside Urine Occult Blood +++ Bedside Urine pH 6.0 Bedside Urine Protein +++ 300 Bedside Urine Urobilinogen - Negative Bedside Urine Nitrite + Positive Bedside Urine Leukocytes ++ [address] scan - abdomen/pelvis: Radiologist's Impression: Close Abdomen/Pelvis CT (Signed) Bobby Evans - 10/31/24 Launch?[place] [address] CT Scan Report Signed Patient: Lizeth Trevino MR#: [id number] : 1965 Acct:[id number] Age/Sex: 59 / F Date of Service: 10/31/24 Loc: ED Accession Number: [id number] Procedure: CT abdomen pelvis wo con Ordering Provider: Myron Thompson MD PROCEDURE: CT ABDOMEN PELVIS WO CON INDICATIONS: L flank pain, lithotripsy, stent, worse pain TECHNIQUE: Axial sections were acquired from the lung bases to the pubic symphysis. Coronal and sagittal reformats were performed. For radiation dose reduction, the following was used: automated exposure control, adjustment of mA and/or kV according to patient size. COMPARISON: None. FINDINGS: Image quality: Diagnostic. Lower Chest: Moderate6 hiatal hernia noted. URINARY: Right Kidney: No stones or hydronephrosis. Right Ureter: No hydroureter. Left Kidney: Several nonobstructing calculi. No hydronephrosis. Left Ureter: Ureteral stent in place. Bladder: Normal wall thickness. No stones. ABDOMEN: Liver: No contour-deforming solid mass. Gallbladder: No radiopaque gallstones or wall thickening. Biliary ducts: No biliary dilation. Pancreas: No ductal dilation. Spleen: The spleen is enlarged at 14.5 cm. No intrinsic mass lesion. Adrenal Glands: No adrenal nodules. Stomach and Bowel: Normal colonic caliber, without significant wall thickening. Peritoneum: No abnormal intraperitoneal fluid. No free air. Ventral Wall: No hernia. Abdominal Nodes: No enlarged retroperitoneal or mesenteric lymph nodes. Vessels: Aorta and inferior vena cava are normal in size. PELVIS: Pelvic Organs: Unremarkable. Pelvic Nodes: Unremarkable. Miscellaneous: No inguinal hernias are seen. Bones: Unremarkable. IMPRESSION: Left ureteral stent in good position without hydronephrosis. Additional nonobstructing left renal calculi noted. Splenomegaly and moderate hiatal hernia Approved by: Bobby Evans M.D. on 10/31/2024 at 15:06 ECG Data Attestation: I personally reviewed and interpreted this ECG as follows: Interpretation: Sinus bradycardia with rate of 51, no obvious ST segment elevation or depression changes. NE 156, QRS 82, QTC 405. MDM Narrative Medical decision making narrative: 59-year-old female with previous lithotripsy and ureteral stenting with Dr. Mancuso Urology, completed a course of antibiotics, now with left-sided pain, no fever on triage, normotensive. IV Dilaudid/Zofran for pain and nausea control. Labs pending unremarkable, no white blood cell count elevation, renal function adequate, LFTs and lipase normal. Urinalysis suspicious for infection. CT shows left-sided ureteral stent in place and nonobstructing left-sided kidney stones, no abscess changes, see radiology report. History of anaphylactoid reaction with throat closing with penicillin. Oral ciprofloxacin first dose now, oral hydrocodone additional pain control. We will send medications antibiotic and further pain control medications to her pharmacy. Home with family. Follow up with Dr. Mancuso of Urology on Saturday, call his office, and/or follow up with PCP for recheck of symptoms and urine culture results. Return precautions discussed. Home with family. Discharge Plan Departure Patient Disposition: Home Clinical Impression: Urinary tract infection, Left nephrolithiasis, History of placement of ureteral stent Activity Restrictions/Additional Instructions: History of kidney stones and lithotripsy and stenting left kidney by local urologist Dr. Mancuso, infection treated with oral antibiotics, off antibiotics for quite a number of days, now with left-sided discomfort. No fever on triage. Unremarkable laboratory serum studies. Urinalysis suspicious for infection. History of severe reaction to penicillin. Gave oral ciprofloxacin antibiotic with prescription for further course of antibiotic for treatment of urinary tract infection. CT scan shows good ureteral stent placement on the left, and the presence of small non obstructing stones within the left kidney, no mention of any abscess or complications at this time. Trial of further pain medication and antibiotics. Follow up with your urologist advised on Saturday, call his office on Saturday. Follow up recheck with your regular doctor also on Saturday if unable to get an with your urologist, check symptoms and urine culture results at that time. Return to earlier to this/nearest emergency department for any change worsening symptoms or any concerns prior. Thank you for allowing our team to evaluate you today. Prescriptions: New ciprofloxacin HCl 500 mg tablet 500 mg PO BID 10 Days Qty: 20 0RF hydrocodone-acetaminophen 5-325 mg tablet 1 tab PO Q6H PRN (Reason: pain) Qty: 14 0RF No Action duloxetine [Cymbalta] 60 mg capsule,delayed release(DR/EC) 60 mg PO BID Qty: 180 3RF clonazepam 1 mg tablet 1 mg PO TID PRN (Reason: severe anxiety) Qty: 70 0RF Rx Instructions: May fill on Oct. 30 day supply (DME) Depends See Rx Instructions .Route .MEDSUPPLY Qty: 1 6RF Rx Instructions: As directed omeprazole 40 mg capsule,delayed release(DR/EC) 40 mg PO DAILY Qty: 90 3RF lamotrigine 200 mg tablet 200 mg PO BEDTIME Qty: 90 1RF phenazopyridine [Pyridium] 200 mg tablet 200 mg PO TID PRN (Reason: pain, bladder irritation) Qty: 30 0RF nitrofurantoin monohyd/m-cryst 100 mg capsule 100 mg PO BID Qty: 30 1RF Rx Instructions: must administer with a meal/food quetiapine 50 mg tablet 50 mg PO DAILY Qty: 90 3RF quetiapine 200 mg tablet 200 mg PO BEDTIME Qty: 90 3RF prazosin 2 mg capsule See Rx Instructions .ROUTE .COMPLEX Qty: 360 0RF Dose Instruction: TAKE 3 CAPSULES BY MOUTH BEDTIME FOR NIGHTMARES Rx Instructions: TAKE 4 CAPSULES BY MOUTH BEDTIME FOR NIGHTMARES oxycodone 5 mg tablet 5 - 10 mg PO Q6H PRN (Reason: pain) Qty: 120 0RF gabapentin 600 mg tablet 1,200 mg PO TID Qty: 90 0RF methocarbamol 500 mg tablet 500 mg PO TID PRN (Reason: muscle spasm) Qty: 90 1RF Rx Instructions: transition from [facility] (DME) Disabled Parking Permint See Rx Instructions .ROUTE .MEDSUPPLY Qty: 1 0RF Rx Instructions: I find this patient to be medically disabled and qualified for Disabled Parking as indicated and signed on the Accompanying Disabled Parking Application for individuals. nystatin 100,000 unit/gram powder 1 applic topical TID Qty: 15 2RF phenazopyridine [Pyridium] 200 mg tablet 200 mg PO TID PRN (Reason: Bladder irritation) Qty: 30 0RF Referrals: Jey Zimmer DO [Primary Care Provider] - Cisco Mancuso MD [Physician] - Stand Alone Forms: Patient Portal/API/Survey
[2024-10-31] MEDS: MORPHINE 4 MG/ML INJ IV (14:09)
--- NOTE | 2024-10-31 14:14 | DI.CT.S_ITS ---
PROCEDURE: CT ABDOMEN PELVIS WO CON INDICATIONS: L flank pain, lithotripsy, stent, worse pain TECHNIQUE: Axial sections were acquired from the lung bases to the pubic symphysis. Coronal and sagittal reformats were performed. For radiation dose reduction, the following was used: automated exposure control, adjustment of mA and/or kV according to patient size. COMPARISON: None. FINDINGS: Image quality: Diagnostic. Lower Chest: Moderate6 hiatal hernia noted. URINARY: Right Kidney: No stones or hydronephrosis. Right Ureter: No hydroureter. Left Kidney: Several nonobstructing calculi. No hydronephrosis. Left Ureter: Ureteral stent in place. Bladder: Normal wall thickness. No stones. ABDOMEN: Liver: No contour-deforming solid mass. Gallbladder: No radiopaque gallstones or wall thickening. Biliary ducts: No biliary dilation. Pancreas: No ductal dilation. Spleen: The spleen is enlarged at 14.5 cm. No intrinsic mass lesion. Adrenal Glands: No adrenal nodules. Stomach and Bowel: Normal colonic caliber, without significant wall thickening. Peritoneum: No abnormal intraperitoneal fluid. No free air. Ventral Wall: No hernia. Abdominal Nodes: No enlarged retroperitoneal or mesenteric lymph nodes. Vessels: Aorta and inferior vena cava are normal in size. PELVIS: Pelvic Organs: Unremarkable. Pelvic Nodes: Unremarkable. Miscellaneous: No inguinal hernias are seen. Bones: Unremarkable. IMPRESSION: Left ureteral stent in good position without hydronephrosis. Additional nonobstructing left renal calculi noted. Splenomegaly and moderate hiatal hernia Approved by: Bobby Evans M.D. on 10/31/2024 at 15:06
[2024-10-31] MEDS: CIPROFLOXACIN 250 MG TABLET 500 MG PO (17:17)
[2024-10-31] MEDS: HYDROCODONE/ACET 5/325 TABLET 1 TAB PO (17:17)
== END 2024-10-31 17:28 | disposition home or self-care (01) ==
PROVIDERS: Emergency Provider Emergency Medicine; Family Provider Family Medicine; PCP Family Medicine
DX: N39.0 Urinary tract infection, site not specified (principal); N20.0 Calculus of kidney; Z96.0 Presence of urogenital implants; Z87.442 Personal history of urinary calculi
CPT/HCPCS: 36415; 74176; 80053; 81003; 81015; 83690; 85025; 87086; 93005; 96374; 96375; 99284; J1885; J2270; J2405

== ENCOUNTER → 2024-12-10 12:19 | Outpatient (CLI) | payer MEDICARE, SELFPAY ==
--- NOTE | 2024-12-10 12:22 | DI.RAD.S_ITS ---
PROCEDURE: XR KUB INDICATIONS: Retained ureteral stent TECHNIQUE: One view of the abdomen acquired. COMPARISON: [facility], CT, CT ABDOMEN PELVIS WO CON, 10/31/2024, 15:11. [facility], CR, XR KUB, 10/22/2024, 7:40. [facility], CR, XR KUB, 09/03/2024, 13:44. [facility], CR, XR KUB, 08/17/2024, 16:42. FINDINGS: Surgical changes and devices: Re-identified left nephroureteral stent with mild uncoiling of the proximal renal pelvic portion. Bowel: Bowel gas pattern is normal. Soft tissues: Left inferior calyceal nephrolithiasis, better identified on the 10/31/2024 CT abdomen pelvis exam. Visualized solid organ contours appear normal in size. Bones: No suspicious bony lesions. IMPRESSION: Re-identified left nephroureteral stent and left inferior calyceal nephrolithiasis. Dictated by: Juan Carlos Mistry M.D. on 12/11/2024 at 13:30 Approved by: Juan Carlos Mistry M.D. on 12/11/2024 at 13:33
== END ==
PROVIDERS: Family Provider Family Medicine; PCP Family Medicine; Referring Provider Family Medicine; Visit Provider Urology
DX: N20.0 Calculus of kidney (principal); Z87.442 Personal history of urinary calculi; Z96.0 Presence of urogenital implants
CPT/HCPCS: 74018

== ENCOUNTER → 2024-12-10 13:47 | Outpatient (CLI) | payer MEDICARE, SELFPAY ==
[2024-12-10 14:45] LABS: Bilirubin Urine UA NEGATIVE (NEGATIVE); Color Urine UA YELLOW; Glucose Urine UA NEGATIVE (Negative); Ketones Urine UA NEGATIVE (NEGATIVE); Leukocyte Esterase Urine UA 2+ (NEGATIVE); Nitrite Urine UA NEGATIVE (Negative); Occult Blood Urine UA 3+ (Negative); Protein Urine UA 2+ (Negative); Specific Gravity Urine UA >=1.030 (1.000-1.035); Urobilinogen Urine UA 0.2 E.U./dL (0.2)
[2024-12-10 15:06] LABS: pH Urine UA 5.5 (4.5-8.0)
[2024-12-10 15:07] LABS: Appearance Urine UA CLOUDY; Urine Volume 10mL (spun)
[2024-12-10 15:08] LABS: Amorphous Sediment Urine 2+; Bacteria Urine Many (>30); Culture Indicated Urine Specimen Cultured; RBC Urine 10-30/HPF (0-5/HPF); Squamous Epithelial Cell Urine 1-5 /HPF (0-5/HPF); WBC Urine 10-30/HPF (0-5/HPF)
== END ==
LOC: LAB 13:48
PROVIDERS: Family Provider Family Medicine; PCP Family Medicine; Visit Provider Urology
DX: Z96.0 Presence of urogenital implants (principal); R39.9 Unspecified symptoms and signs involving the genitourinary system; N20.0 Calculus of kidney
CPT/HCPCS: 74018; 81001; 87086

== ENCOUNTER → 2024-12-25 11:49 | Outpatient (CLI) | payer MEDICARE, SELFPAY | PROVIDERS: Family Provider Family Medicine; PCP Family Medicine; Visit Provider Urology | DX: Z96.0 Presence of urogenital implants (principal); R39.9 Unspecified symptoms and signs involving the genitourinary system | CPT/HCPCS: 87086 ==

== ENCOUNTER 2025-05-18 15:52 | Emergency (ER) | payer MEDICARE, SELFPAY ==
[2025-05-18 15:59] VITALS: BP 170/79; PULSE 92; RESP 17; TEMP 36.9; O2SAT 98; BMI 43.9
--- NOTE | 2025-05-18 16:07 | ED_ITS ---
HPI - Extremity Injury (Lower) General Chief Complaint: Extremity Injury, Lower Stated Complaint: Lt Foot trauma, pain, injured 2weeks ago Time Seen by Provider: 05/18/25 16:00 Source: patient Mode of arrival: Ambulatory History of Present Illness HPI Narrative: 59-year-old woman with chronic pain syndrome on regular narcotic scheduled, COPD, neuropathy, complicated kidney stones, prior stroke, bipolar disorder presents today complaining of left foot pain at the base of her small toe. She states that she hit her foot approximately 2 weeks ago it is continuing to hurt. She is using her baseline Percocet his added some ibuprofen he is concerned that it is still hurting. She has continued to walk on it throughout this timeframe Related Data Previous Rx's ?Medication ?Instructions ?Recorded Depends #1 ea 09/27/21 Disabled Parking Permint #1 ea 05/18/24 lamotrigine 200 mg tablet 200 mg PO BEDTIME #90 tabs 0 02/10/25 methocarbamol 500 mg tablet 500 mg PO TID PRN muscle s pasm #90 03/11/25 tabs omeprazole 40 mg capsule,delayed 40 mg PO DAILY #90 ca ps 03/11/25 release oxycodone 5 mg tablet 5 - 10 mg (1 - 2 x 5 mg) PO Q6H 05/15/25 PRN pain #120 tabs gabapentin 600 mg tablet 1,200 mg (2 x 600 mg) PO TID #180 05/17/25 tabs clonazepam 1 mg tablet See Rx Instructions .Route 0 05/18/25 .COMPLEX severe anxiety #75 tabs duloxetine 60 mg capsule,delayed 60 mg PO BID #180 cap s 05/18/25 release prazosin 2 mg capsule 8 mg (4 x 2 mg) PO BEDTIME # 360 05/18/25 caps quetiapine 150 mg tablet 150 mg PO BEDTIME #90 tabs 0 05/18/25 quetiapine 50 mg tablet 50 mg PO QAM #90 tabs Allergies Allergy/AdvReac Type Severity Reaction Status Date / Time Penicillins Allergy Severe THROAT Verified 05/18/25 16:02 SWELLING Review of Systems Review of Systems Narrative: Pertinent positive and negative findings as per HPI Patient History Medical History Nephrolithiasis COPD (chronic obstructive pulmonary disease) History of stroke Neuropathy Retained ureteral stent Left renal stone Hx of migraine headaches Acute bilateral knee pain Pain management contract agreement Strain of gluteus medius of left lower extremity Recurrent sinusitis Lumbar spine pain Foot pain Cervical spine disease Bipolar disorder Cyst of breast, diffuse fibrocystic Peptic ulcer disease Gastric ulcer Adenoma of left adrenal gland (2011) Cervical polyp (08/2012) Hearing loss CTS (carpal tunnel syndrome) Chronic back pain Fibromyalgia ADHD (attention deficit hyperactivity disorder) Anxiety Depression PTSD (post-traumatic stress disorder) Asthma Colon polyps Acute viral sinusitis Kidney infection Abscess of skin Shingles Surgical History Hx of appendectomy Hx of cystoscopy (08/18/24) Hx of tubal ligation Hx of breast biopsy History of lumbar surgery (~1989) History of endometrial ablation (10/2012) History of colonoscopy (07/2013) History of esophagogastroduodenoscopy (EGD) (10/26/13) History of esophagogastroduodenoscopy (EGD) (03/2013) History of cystoscopy (07/2013) Family History Aunt Cancer Brother Cancer Mother CVA (cerebral vascular accident) Grandmother Diabetes mellitus Uncle Diabetes mellitus Daughter Thyroid disorder Son Thyroid disorder Social History marital status: number of children: 4 household members: spouse Tobacco: How many years used: 2 alcohol intake: current substance use type: does not use caffeine: Yes Type(s) of exercise: decline to answer tobacco type: cigarettes alcohol intake frequency: a few times a month Exam Initial Vital Signs Initial Vital Signs: Vital Signs Temperature 98.4 F 05/18/25 15:59 Pulse Rate 92 H 05/18/25 15:59 Respiratory Rate 17 05/18/25 15:59 Blood Pressure 170/79 H 05/18/25 15:59 Pulse Oximetry 98 05/18/25 15:59 Oxygen Delivery Method Room Air 05/18/25 15:59 General: Alert appropriate in no acute distress Respiratory: Able to speak in full sentences, no obvious respiratory distress Skin: No obvious rashes, warm and dry Neurologic: Grossly intact no obvious asymmetries or abnormalities Psych: appropriate insight and affect, cooperative Extremity: Minor swelling and bruising to the base of the left small toe. Neurovascularly intact. No tenderness over the forefoot or ankle Course Orders Ordered: ED Orders 05/18/25 16:07 XR foot LT min 3V Stat Vital Signs Vital signs: Vital Signs - 8 hr 05/18/25 15:59 Temperature 98.4 F Pulse Rate 92 H Respiratory Rate 17 Blood Pressure 170/79 H Pulse Oximetry 98 Oxygen Delivery Method Room Air MDM - Extremity Injury (Lower) MDM Narrative Medical decision making narrative: 59-year-old woman who injured her foot about 2 weeks ago still having pain. X- rays show IMPRESSION: Healing minimally displaced fracture of the 5th proximal phalangeal shaft. She is on chronic pain management with scheduled Percocet has recently added ibuprofen. She does not understand why her foot is still hurting, she has been walking on it regularly. She was given a hard sole walking shoe and instructions on minimizing pain including continued chronic pain medications, ibuprofen is added, minimal flexion around the midfoot and small toe, ice as needed, keeping the toe elevated, trying to stay off it as much as tolerable. There is no indication for casting, additional imaging or orthopedic follow up at this point. The bone already has callus forming and appears to be healing nicely. She is safe for discharge Discharge Plan Departure Patient Disposition: Home Clinical Impression: Closed fracture of toe Qualifiers: Encounter type: initial encounter Toe: lesser toe Phalanx: proximal Fracture alignment: nondisplaced Laterality: left Qualified Code(s): S92.515A - Nondisplaced fracture of proximal phalanx of left lesser toe(s), initial encounter for closed fracture Instructions: DI for Toe Fracture Activity Restrictions/Additional Instructions: Thank you for coming in today The good news is that you are 2 weeks into typical 6 week period of bone healing. You did break 1 of the bones in your pinky toe on the left side. It is already healing nicely. I have given you a hard sole shoe so that when you are walking you do not flex at the area where the fracture is. You can use this as tolerated for pain con trol. Please continue your medications as already prescribed. Adding occasional ibuprofen is reasonable. Keeping your foot off it and minimizing walking for another week or 2 is going to be helpful If you find that you are getting worse or develop any new symptoms, please feel free to return to the emergency department for further evaluation. Prescriptions: No Action duloxetine 60 mg capsule,delayed release(DR/EC) 60 mg PO BID Qty: 180 3RF prazosin 2 mg capsule 8 mg PO BEDTIME Qty: 360 3RF quetiapine 50 mg tablet 50 mg PO QAM Qty: 90 3RF quetiapine 150 mg tablet 150 mg PO BEDTIME Qty: 90 3RF clonazepam 1 mg tablet See Rx Instructions .ROUTE .COMPLEX Qty: 75 0RF Rx Instructions: 1 mg po qam, 0.5 mg po midday, and 1 mg qpm lamotrigine 200 mg tablet 200 mg PO BEDTIME Qty: 90 3RF (DME) Depends See Rx Instructions .Route .MEDSUPPLY Qty: 1 6RF Rx Instructions: As directed omeprazole 40 mg capsule,delayed release(DR/EC) 40 mg PO DAILY Qty: 90 3RF methocarbamol 500 mg tablet 500 mg PO TID PRN (Reason: muscle spasm) Qty: 90 1RF Rx Instructions: transition from [facility] oxycodone 5 mg tablet 5 - 10 mg PO Q6H PRN (Reason: pain) Qty: 120 0RF gabapentin 600 mg tablet 1,200 mg PO TID Qty: 180 2RF (DME) Disabled Parking Permint See Rx Instructions .ROUTE .MEDSUPPLY Qty: 1 0RF Rx Instructions: I find this patient to be medically disabled and qualified for Disabled Parking as indicated and signed on the Accompanying Disabled Parking Application for individuals. Referrals: Jey Zimmer DO [Primary Care Provider, Family Practice] Stand Alone Forms: Patient Portal/API
--- NOTE | 2025-05-18 16:07 | DI.RAD.S_ITS ---
PROCEDURE: XR FOOT LT MIN 3V INDICATIONS: Trauma around base of small toe 2 weeks ago TECHNIQUE: 3 views of the foot were acquired. COMPARISON: [facility], CR, XR FOOT LT MIN 3V, 05/29/2020, 12:13. FINDINGS: Bones: Minimally displaced fracture of the 5th proximal phalangeal shaft with mild healing changes. No suspicious bony lesions. Plantar calcaneal enthesophyte. Soft tissues: Mild soft tissue edema. IMPRESSION: Healing minimally displaced fracture of the 5th proximal phalangeal shaft. Approved by: Sly Silva M.D. on 05/18/2025 at 16:38
== END 2025-05-18 17:13 | disposition home or self-care (01) ==
PROVIDERS: Emergency Provider Emergency Medicine; Family Provider Family Medicine; PCP Family Medicine
DX: S92.515A Nondisplaced fracture of proximal phalanx of left lesser toe(s), initial encounter for closed fracture (principal); X58.XXXA Exposure to other specified factors, initial encounter; F41.9 Anxiety disorder, unspecified; F31.9 Bipolar disorder, unspecified; F43.12 Post-traumatic stress disorder, chronic
CPT/HCPCS: 73630; 99214; 99281; 99283